=== PATIENT | female | born 1940 | race Caucasian/White ===

== ENCOUNTER 2022-05-05 14:32 | Outpatient (CLI) | payer MEDICARE, SELFPAY ==
--- NOTE | 2022-05-05 14:40 | RAD_ITS ---
STUDY: X-RAY - RIGHT TIBIA AND FIBULA REASON FOR EXAM: Female, 81 years old. ULCER TECHNIQUE: 4 view(s) of the tibia and fibula were obtained. COMPARISON: None. FINDINGS: Normal visualized tibia. Normal visualized fibula. Calcaneal spurs. 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 Diffuse soft tissue swelling. Laceration is seen overlying the anterior soft tissues overlying the distal one third of the tibia. RAD/Tibia & Fibula 2 Views IMPRESSION: Soft tissue swelling and ulceration overlying the anterior aspect of the distal one third of the tibia. Electronically Signed: Jose Madrigal MD at 15:40 EDT ,
== END 2022-05-05 23:59 | disposition home or self-care (01) ==
PROVIDERS: PCP Physician Assistant Medical; Referring Provider Podiatrist; Visit Provider Podiatrist
DX: L97.512 Non-pressure chronic ulcer of other part of right foot with fat layer exposed (principal); L97.522 Non-pressure chronic ulcer of other part of left foot with fat layer exposed; S89.91XA Unspecified injury of right lower leg, initial encounter; M79.674 Pain in right toe(s); M79.675 Pain in left toe(s); M79.604 Pain in right leg; L03.115 Cellulitis of right lower limb; B35.1 Tinea unguium; L60.0 Ingrowing nail; S81.811A Laceration without foreign body, right lower leg, initial encounter; R60.0 Localized edema; Z79.01 Long term (current) use of anticoagulants; Z79.890 Hormone replacement therapy; Z79.899 Other long term (current) drug therapy
CPT/HCPCS: 11042; 73590; 99213; G0463

== ENCOUNTER 2022-05-19 13:00 | Outpatient (RCR) | payer MEDICARE, SELFPAY ==
[2022-05-05 13:10] VITALS: BP 156/68; PULSE 69; RESP 18; TEMP 36.4; BMI 34.0
--- NOTE | 2022-05-05 19:42 | PCM.CONS.GEN ---
Assessment & Plan Assessment/Plan (1) Chronic ulcer of right leg with fat layer exposed: (2) Right leg pain: (3) Localized edema: (4) Cellulitis of right lower limb: (5) Laceration of right lower leg: PLAN: Plan I reviewed and discussed her case today. Debridement was performed today as noted in the clinical panel to all of the ulcer site. Procedure- Location: right leg Excisional debridement performed (predebridement measurement 2.1 x 8.2 x 0.1 cm and post debridement measurement 2.2 x 8.3 x 0.1 cm) Anesthesia: 5% lidocaine plain Debridement layer: subcutaneous Amount of debridement: 100% Instrumentation used: 15 blade Tissue debrided: fibrous, devitalized subcutaneous, biofilm, slough Exposed tissue: fat layer Bleeding: mild Hemostasis controlled: pressure The patient tolerated the procedure well The following work up and care recommendations were made: Dressing: Daily Aquacel Ag Wash: Antibacterial soap and water. To avoid soaking Tissue growth optimization: Advanced application will be considered after improving granular base Offload: To reduce pressure and ulcer by application of compression garment Vascular: Noninvasive lower extremity arterial studies with ordered to confirm adequate perfusion. Edema: Single-layer Tubigrip applied. Additional compression will be recommended pending treatment response. Elevate limbs at rest. Venous Doppler with reflux evaluation was ordered to assess for venous insufficiency Infection: It is noted she was previously treated for cellulitis in her leg and she completed several course of antibiotics. To monitor for development of local or systemic illness. I do not recommend additional antibiotics at this time. Diagnostic data: Ordered x-ray of limb (right lower extremity). Tibia-fibula x-ray right lower extremity was reviewed with soft tissue discontinuity noted to anterior mid lower leg without soft tissue emphysema and deeper compartments, fracture, dislocation, periosteal reaction to adjacent tibia. 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 Pain: This is controlled at this time Host factors: Her comorbidities are noted. I also recommend nutritional supplementation optimize healing, Radu. The medical decision making level is low. There is noted low risk of morbidity after considering this treatment plan and diagnostic data. The problems addressed require a low medical decision making level which includes two or more minor problems, a stable chronic illness, or an acute uncomplicated illness or injury. Note: [employer] speech recognition sawmill supervisor software was used to create portions of this document. Sound-alike and misspelled words, as well as other sawmill supervisor errors may be contained in the documentation. I answered all the patient's questions. To return to the wound healing center in 1 week or call sooner if the patient has any questions or concerns. HPI Consult Data Date of Consult: 05/05/22 HPI Narrative Reason for Consultation: Right leg ulcer HPI Narrative: RACHEL DUONG, is a 81 F who presents to the wound healing center today for ulcer right leg with an onset of 5 weeks ago. A corn shaker fell on her leg and caused a laceration which was repaired in the outpatient setting. She was treated for antibiotics and started on Silvadene dressing. She completed a course of Bactrim already. She denies odor or other illness. She reports she has also had chronic lower extremity edema with some pigment changes. She denies claudication. She denies burning tingling or numbness. She denies current smoking or diabetes status. She is with her family member bedside. She denies current fever, chill, nausea, vomiting. [facility] Home Medications acetaminophen 325 mg capsule (Tylenol) mg PO Q4H PRN Pain 05/05/22 [History Last Taken Unknown] alprazolam 0.25 mg tablet (Xanax) 0.5 mg PO QHS PRN Anxiety 05/05/22 [History Last Taken Unknown] amitriptyline 25 mg tablet 25 mg PO QHS 05/05/22 [History Last Taken Unknown] cholecalciferol (vitamin D3) 125 mcg (5,000 unit) tablet (Vitamin D3) 125 mcg PO QWEEK 05/05/22 [History Last Taken Unknown] furosemide 20 mg tablet (Lasix) 20 mg PO BID 05/05/22 [History Last Taken Unknown] gabapentin 300 mg capsule 300 mg PO TID 05/05/22 [History Last Taken Unknown] levothyroxine 75 mcg tablet 75 mcg PO MOTUWETHFRSA 05/05/22 [History Last Taken Unknown] multivitamin 1 tab PO DAILY 05/05/22 [History Last Taken Unknown] omeprazole 40 mg capsule,delayed release 40 mg PO DAILY 05/05/22 [History Last Taken Unknown] potassium chloride 10 mEq tablet,extended release(part/cryst) 10 meq PO 4X/DAY 05/05/22 [History Last Taken Unknown] propafenone 225 mg tablet 225 mg PO Q8H 05/05/22 [History Last Taken Unknown] propafenone 225 mg tablet 225 mg PO Q8H 05/05/22 [History Last Taken Unknown] triamterene 37.5 mg-hydrochlorothiazide 25 mg capsule 1 cap PO DAILY 05/05/22 [History Last Taken Unknown] warfarin 5 mg tablet 5 mg PO DAILY 05/05/22 [History Last Taken Unknown] Allergy/AdvReac Type Severity Reaction Status Date / Time tramadol [From Ultram] AdvReac Other Verified 05/05/22 13:31 STATINS AdvReac Other Uncoded 05/05/22 13:31 Social History Smoking Status: Never smoker Physical Exam Const alert and oriented x3 General Appearance: cooperative HEENT normocephalic Extremity Extremity Narrative: No calf tenderness Diminished pulses Muscle wasting noted General Extremity: edema and no tenderness to palpation of joints or extremities; Negative for cyanosis Skin Skin Narrative: no purulence, no streaking, no odor, no infection. skin discontinuity to right leg with fibrous, granular base and some probing to deeper structures without probe to bone. tender to touch. no bogginess or fluctuance. peripheral hyperpigmentation noted General Skin Exam: Negative for erythema Neuro Neuro Narrative: lack of normal epicritic sensation via light touch is consistent with neuropathy status Psych cooperative and affect normal
[2022-05-12 14:46] VITALS: BP 166/83; PULSE 77; RESP 16; TEMP 36.8; BMI 34.0
--- NOTE | 2022-05-12 16:06 | PCM.WC.PN ---
History of Present Illness Date of Service: 05/12/22 Chief Complaint: Right leg History of Wound: This 81-year-old female follows up for right leg ulcer that occurred early March 2022 after a corn shaker fell on her leg. She is performing dressing changes as advised. She denies fever, chill, nausea, vomiting. She did not schedule her follow-up appointment with vascular. She reports continued moderate drainage. Progress of Wound: Improving quality Objective Data Objective Data Vital Signs: Vital Signs Temp Pulse Resp BP O2 Del Method 98.2 F 77 16 166/83 H Room Air 05/12/22 14:46 05/12/22 14:46 05/12/22 14:46 05/12/22 14:46 05/12/22 14:46 Oxygen Delivery Method Room Air Weight: 81.647 kg Body Mass Index (BMI) 34.0 Physical Exam Const alert and oriented x3 General Appearance: cooperative HEENT normocephalic Extremity Extremity Narrative: No calf tenderness Diminished pulses Muscle wasting noted General Extremity: edema and no tenderness to palpation of joints or extremities; Negative for cyanosis Skin Skin Narrative: no purulence, no streaking, no odor, no infection. skin discontinuity to right leg with fibrous, granular base and some probing to deeper structures without probe to bone. tender to touch. no bogginess or fluctuance. peripheral hyperpigmentation noted General Skin Exam: Negative for erythema Neuro Neuro Narrative: Light touch intact Psych cooperative and affect normal Debridement Note Debridement Note Wound debrided: Leg Laterality: Right Wound Grade/Stage: Type of Debridement: Excisional debridement Anesthesia Used: 4% Lidocaine Solution Depth: in the subcutaneous layer Percentage of wound debrided: 100 Instrument Used: #15 blade and Forceps Tissue Removed: fibrous, devitalized subcutaneous, biofilm, slough Severity: Fat Layer Exposed Amount of bleeding with debridement: Mild Bleeding Controlled with: Pressure Patient tolerated procedure: Patient tolerated procedure well Post-Debridement Measurements and Additional Note: Post-Debridement Measurements/Treatment - Nurse 1 - General Ulcer Assessment Start: 05/05/22 13:10 Freq: Status: Active Protocol: ANGY Activity Type Activity Date Activity User E-sign Co-sign Detail Recorded Client Recorded Date Recorded By Document 05/05/22 13:10 [facility] [id number] 05/05/22 13:26 BM Document 05/12/22 14:46 [facility] [id number] 05/12/22 14:56 [facility] 05/05/22 05/12/22 13:10 14:46 WC - Today's Visit Information Type of service Initial Visit Follow-up Visit (Physician/SHIFT PRODUCTION ASSOCIATE ) Arrival Mode Ambulatory Ambulatory Transfer Assistance Stretcher None Accompanied by son in law Patient Identification Verified (Name & Yes Yes ) Patient Requires Transmission-Based No No Precautions Height and Weight Height 5 ft 1 in Weight 81.647 kg Weight in Pounds 180.0 lbs Weight Measurement Method Stated by Patient Body Mass Index (BMI) 34.0 34.0 BMI Classification Obese Obese BSA - Alannah 1.81 Vital Signs Temperature (97.8 F-99.1 F) 97.5 F L 98.2 F Temperature Source Temporal Temporal Pulse Rate (60-100) 69 77 Pulse Location Monitor Monitor Respiratory Rate (12-18) 18 16 Respiratory rate source Observation Observation Oxygen Delivery Method Room Air Room Air Blood Pressure (90/60-120/80) 156/68 H 166/83 H Blood Pressure Mean (mm Hg) 97 110 Source Monitor Monitor Position Sitting Sitting Blood Pressure Location Right Arm Left Arm History Since Last Visit- (Skip if this is Patient's initial visit) Have you changed medications since your No last visit? Any new allergies or adverse reactions No Had a fall/change in ADL's that may No increase risk of falls Signs or symptoms of abuse and/or No neglect since last visit Have you been in the hospital since your No last visit? Has dressing in place as prescribed Yes Has compression in place as prescribed No Has offloadiing in place as prescribed N/A Experienced any changes in pain level or No management Left Footwear Regular Shoe Regular Shoe Right Footwear Regular Shoe Regular Shoe Pain Scale: 0-10 Numeric Is Patient Pain Free? Yes Yes Lower Extremity Assessment/ Foot Assessment/ Toe Nail Assessment Right -Posterior Tibial Palpable No -Posterior Tibial Doppler Monophasic -Dorsalis Pedis Palpable Yes -Dorsalis Pedis Doppler Monophasic -Extremity Color Hyperpigmented -Hair Growth on Legs No -Hair Growth on Toes No -Temperature of Extremity Warm -Other Deformity No -Prior Foot Ulcer No -Charcot Joint No -Prior Amputation No -Thick Yes -Discolored Yes -Deformed No -Improper Length & Hygeine No Left -Posterior Tibial Palpable No -Posterior Tibial Doppler Monophasic -Dorsalis Pedis Palpable Yes -Dorsalis Pedis Doppler Multiphasic -Extremity Color Hemosiderin -Hair Growth on Legs No -Hair Growth on Toes No -Temperature of Extremity Warm -Other Deformity No: no nail 2nd toe -Prior Foot Ulcer No -Charcot Joint No -Prior Amputation No -Thick Yes -Discolored Yes -Deformed No -Improper Length & Hygeine No Neuropathy Assessment Feet - Top Side and Bottom <Entered> (a) Communication Assessment Preferred language Sinhala Resource Teacher Required No Able to Read Yes Able to Write Yes Communication Tools None Right Hearing Abillity Hard of Hearing ,Use of Hearing Aid Left Hearing Abillity Normal,Use of Hearing Aid Visual Assistive Devices Glasses Teaching Assessment Preferences Verbal,Written, Audio/Visual, Demonstration Barriers to Learning None Readiness To Learn Excellent Willingness to Engage in Self Management High Activies Readiness to Engage in Self Management High Activities Anxiety Level Calm Cooperation Cooperative Perception Coherent Interest in Health Problem Asks Questions Education Importance Acknowledges Need Does Patient Smoke tobacco or other No substances Smoking Status Never smoker Is Patient Diabetic Yes Functional Assessment Recent Decline in Ability to Perform Denies Any Declines Culture/Sabianism/Sales Enablement Consultant Cultural/Sabianism Needs that may affect No Treatment Plan Teaching: Wound Center *Welcome to the Wound Center -Person Taught Patient,Family -Teaching Method Discussion -Response to teaching Verbalize understanding Welcome to the Wound Care Center Sinhala (a) 1 - + WC - Nurse 1 - General Ulcer Measurement Start: 05/05/22 13:10 Freq: Status: Active Protocol: Activity Type Activity Date Activity User E-sign Co-sign Detail Recorded Client Recorded Date Recorded By Document 05/05/22 13:10 [facility] [id number] 05/05/22 13:26 [facility] Document 05/12/22 14:46 [facility] [id number] 05/12/22 14:56 [facility] 05/05/22 05/12/22 13:10 14:46 Wound Center Nurse 1 #2 R LE -Combined with other wound No No -Current Size (cm) - Length 2.1 2 -Current Size (cm) - Width 8.2 6.9 -Current Size (cm) - Depth 0.2 0.2 -Total Square Cm 17.22 13.8 -Date of Last Picture (Recall this 05/05/22 05/12/22 field) -Photo Taken Yes Yes -Epithelialization None Present Small 1-33% -Tunneling No No -Undermining/Tunneling No No -Circular Undermining No No -Exudate Amt Medium Large -Exudate Type Yellow/Green Serosanguineous -Wound Margin Distinct, Distinct, Outline Outline Attached Attached -Granulation Amt Small (1-33%) Small (1-33%) -Granulation Quality Red Red -Slough/Fibrin Yes Yes -Necrosis Amt Large (67-100%) Large (67-100%) -Necrotic Tissue Type Adherent Slough Adherent Slough -Texture (Alethea-wound Skin Appearance) Assessed, Assessed, Scarring Scarring -Moisture (Alethea-wound Skin Appearance) Assessed Assessed -Color (Alethea-wound Skin Appearance) Assessed, Assessed, Erythema, Hemosiderin Hemosiderin Staining Staining -Temperature (Alethea-wound Skin No Abnormality No Abnormality Appearance) (Pt Warm) (Pt Warm) -Tenderness on Palpation (Alethea-wound No No Skin Appearance) -Ulcer Cleansing Soap and Water Rinsed/ Irrigated with Saline -Foul Odor after Cleansing No No -Anesthetic Used 4% Lidocaine 4% Lidocaine Solution Solution Lower Limb Edema Present Yes Yes Right Calf (cm) 43.4 43.5 Right Ankle (cm) 27 23.8 Left Calf (cm) 42 Left Ankle (cm) 25.6 WC - Nurse 2 - General Ulcer CM Notes Start: 05/05/22 13:10 Freq: Status: Active Protocol: Activity Type Activity Date Activity User E-sign Co-sign Detail Recorded Client Recorded Date Recorded By Document 05/05/22 13:49 [id number] 05/05/22 13:57 NAWAF 05/05/22 13:49 Wound Center Nurse 2 #2 R LE -Time 13:55 -Correct Patient Yes -Correct Side, Site, Position Yes -Correct Procedure Yes -Procedure Performed Yes -Type of Procedure Debridement -Clinical Debridement Subcutaneous -Tissue Removed Subcutaneous -Post Debridement (cm) - Length 2.2 -Post Debridement (cm) - Width 8.3 -Post Debridement (cm) - Depth 0.2 -Total Square (Post) (cm) 18.26 -Area of Debridement (cm) - Length 2.2 -Area of Debridement (cm) - Width 8.3 -Total Square (Area) (cm) 18.26 -Tunneling No -Undermining/Tunneling No -Circular Undermining No -Wound/Ulcer Outcome Not Healed -Ulcer Cleansing Rinsed/ Irrigated with Saline -Foul Odor after Cleansing No -Bioengineered Tissue No -Bleeding Controlled with Pressure -Treatment Response Procedure Tolerated Well -Offloading No -Debridement - Subq, 1st 20sq cm Yes Pain Scale: 0-10 Numeric Is Patient Pain Free? Yes WC - Nurse 3 - General Ulcer D/C NN Start: 05/05/22 13:10 Freq: Status: Active Protocol: Activity Type Activity Date Activity User E-sign Co-sign Detail Recorded Client Recorded Date Recorded By Document 05/05/22 14:18 [facility] [id number] 05/05/22 14:19 [facility] Document 05/12/22 15:55 RB [id number] 05/12/22 15:56 RB 05/05/22 05/12/22 14:18 15:55 Wound Care Nurse 3 #2 R LE -Ulcer Cleansing Rinsed/ Wound Cleanser Irrigated with Saline -Foul Odor after Cleansing No -Negative Pressure Wound Therapy N/A -Primary Dressing Applied Aquacel AG 4x4 Nugauze, Iodoform -Primary Dressing Covered/Secured with Dry Gauze & Dry Gauze,Dry Roll Gauze, Gauze & Roll Secured with Gauze,Secured Tape with Tape -Aquacel AG 4x4 1 -Nugauze, Iodoform 1/4 1 Right -Tubular Bandage Single Layer Double Layer -Size of Tubigrip Used Size F Size E -Size E ($) 2 -Size F ($) 1 Treatment Response Procedure Tolerated Well Pain Scale: 0-10 Numeric Is Patient Pain Free? Yes Yes Teaching: Wound Center Dressing Your Wound -Person Taught Patient -Teaching Method Discussion, Demonstration -Response to teaching Verbalize understanding WC - Visit Discharge Discharge Condition Stable Stable Ambulatory Status Ambulatory Ambulatory Transportation Private Auto Private Auto Medication Reconcilliation completed & Yes No provided to patient/care provider Clinical Summary of Care Provided Yes Yes Assessment/Plan Assessment/Plan (1) Laceration of right lower leg: CODE(S): S81.811A - Laceration without foreign body, right lower leg, initial encounter (2) Cellulitis of right lower limb: CODE(S): L03.115 - Cellulitis of right lower limb (3) Localized edema: CODE(S): R60.0 - Localized edema (4) Right leg pain: CODE(S): M79.604 - Pain in right leg (5) Chronic ulcer of right leg with fat layer exposed: CODE(S): L97.912 - Non-pressure chronic ulcer of unspecified part of right lower leg with fat layer exposed PLAN: Plan I reviewed and discussed her case today.? Debridement was performed today as noted in the clinical panel to all of the ulcer site. Dressing: Iodoform gauze packing with overlying gauze Wash: Antibacterial soap and water.? To avoid soaking Tissue growth optimization: Advanced application will be considered after improving granular base Offload: To reduce pressure and ulcer by application of compression garment Vascular: Noninvasive lower extremity arterial studies with ordered to confirm adequate perfusion. She was encouraged to get this scheduled. Edema: Double layer Tubigrip applied.?? Elevate limbs at rest.? Venous Doppler with reflux evaluation was ordered to assess for venous insufficiency Infection: It is noted she was previously treated for cellulitis in her leg and she completed several course of antibiotics.? To monitor for development of local or systemic illness. I do not recommend additional antibiotics at this time. Diagnostic data: Ordered x-ray of limb (right lower extremity).? Tibia-fibula x-ray right lower extremity was reviewed with soft tissue discontinuity noted to anterior mid lower leg without soft tissue emphysema and deeper compartments, fracture, dislocation, periosteal reaction to adjacent tibia.? 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 Pain: This is controlled at this time Host factors: Her comorbidities are noted.? I also recommend nutritional supplementation optimize healing, Radu. Note: code[employer] speech recognition entry level web developer software was used to create portions of this document. Sound-alike and misspelled words, as well as other entry level web developer errors may be contained in the documentation. I answered all the patient's questions.? To return to the wound healing center in 1 week or call sooner if the patient has any questions or concerns.
[2022-05-19 13:11] VITALS: BP 155/79; PULSE 72; RESP 16; TEMP 36.1; BMI 34.0
--- NOTE | 2022-05-19 13:37 | PN.PCM_ITS ---
History of Present Illness Date of Service: 05/19/22 Chief Complaint: Right leg History of Wound: This 81-year-old female follows up for right leg ulcer that occurred early March 2022 after a corn shaker fell on her leg. She is performing dressing changes as advised. She denies fever, chill, nausea, vomiting. She did not schedule her follow-up appointment with vascular. She reports continued moderate drainage and some intermittent pain with the deeper packing dressing changes. She also reports she keeps stubbing her toes and has an opening on her right second toe. She also has for help safely trimming her toenails which she is unable to perform on her own. She stopped her ingrown right great toe nail and this is painful rated as a 4 out of 10. She is not able to safely perform this on her own. Progress of Wound: Improving quality right leg New right second toe and left hallux Objective Data Objective Data Vital Signs: Vital Signs Temp Pulse Resp BP O2 Del Method 96.9 F L 72 16 155/79 H Room Air 05/19/22 13:11 05/19/22 13:11 05/19/22 13:11 05/19/22 13:11 05/12/22 14:46 Oxygen Delivery Method Room Air Weight: 81.647 kg Body Mass Index (BMI) 34.0 Physical Exam Const alert and oriented x3 General Appearance: cooperative HEENT normocephalic Extremity Extremity Narrative: No calf tenderness Diminished pulses Muscle wasting noted General Extremity: edema and no tenderness to palpation of joints or extremities; Negative for cyanosis Skin Skin Narrative: no purulence, no streaking, no odor, no infection. skin discontinuity to right leg with fibrous, granular base and some probing to deeper structures without probe to bone. tender to touch. no bogginess or fluctuance. peripheral hyperpigmentation noted. Skin discontinuity superficial with granular base to the dorsal right second toe and also to the distal plantar toe pulp of the left hallux Toenails long thick dystrophic with subungual debris and incurvated to the medial lateral borders on bilateral 1, 3, 4 and left 2 and 5. Absent toenail to right 2 and 5. Pain relief on palpation noted postdebridement General Skin Exam: Negative for erythema Neuro Neuro Narrative: Light touch intact Psych cooperative and affect normal Debridement Note Debridement Note Wound debrided: R.Leg, R. 2nd toe, L. hallux Laterality: Left Wound Grade/Stage: Type of Debridement: Excisional debridement Anesthesia Used: 4% Lidocaine Solution Depth: in the subcutaneous layer Percentage of wound debrided: 100 Instrument Used: #15 blade and Forceps Tissue Removed: fibrous, devitalized subcutaneous, biofilm, slough Severity: Fat Layer Exposed Amount of bleeding with debridement: Mild Bleeding Controlled with: Pressure Patient tolerated procedure: Patient tolerated procedure well Post-Debridement Measurements and Additional Note: Post-Debridement Measurements/Treatment - Nurse 1 - General Ulcer Assessment Start: 05/05/22 13:10 Freq: Status: Active Protocol: ANGY Activity Type Activity Date Activity User E-sign Co-sign Detail Recorded Client Recorded Date Recorded By Document 05/05/22 13:10 [facility] [id number] 05/05/22 13:26 [facility] Document 05/12/22 14:46 [facility] [id number] 05/12/22 14:56 [facility] Document 05/19/22 13:11 [id number] 05/19/22 13:17 05/05/22 05/12/22 05/19/22 13:10 14:46 13:11 - Today's Visit Information Type of service Initial Visit Follow-up Visit Follow-up Visit (Physician/DIRECTOR OF PATIENT FINANCIAL SERVICES (Physician/DIRECTOR OF PATIENT FINANCIAL SERVICES ) ) Arrival Mode Ambulatory Ambulatory Ambulatory Transfer Assistance Stretcher None Accompanied by son in law Patient Identification Verified (Name & Yes Yes No ) Patient Requires Transmission-Based No No No Precautions Height and Weight Height 5 ft 1 in Weight 81.647 kg Weight in Pounds 180.0 lbs Weight Measurement Method Stated by Patient Body Mass Index (BMI) 34.0 34.0 34.0 BMI Classification Obese Obese Obese BSA - Alannah 1.81 Vital Signs Temperature (97.8 F-99.1 F) 97.5 F L 98.2 F 96.9 F L Temperature Source Temporal Temporal Temporal Pulse Rate (60-100) 69 77 72 Pulse Location Monitor Monitor Monitor Respiratory Rate (12-18) 18 16 16 Respiratory rate source Observation Observation Observation Oxygen Delivery Method Room Air Room Air Blood Pressure (90/60-120/80) 156/68 H 166/83 H 155/79 H Blood Pressure Mean (mm Hg) 97 110 104 Source Monitor Monitor Monitor Position Sitting Sitting Semi-Fowlers Blood Pressure Location Right Arm Left Arm Left Arm History Since Last Visit- (Skip if this is Patient's initial visit) Have you changed medications since your No No last visit? Any new allergies or adverse reactions No No Had a fall/change in ADL's that may No No increase risk of falls Signs or symptoms of abuse and/or No No neglect since last visit Have you been in the hospital since your No No last visit? Has dressing in place as prescribed Yes Yes Has compression in place as prescribed No Yes Has offloadiing in place as prescribed N/A N/A Experienced any changes in pain level or No No management Left Footwear Regular Shoe Regular Shoe Regular Shoe Right Footwear Regular Shoe Regular Shoe Regular Shoe Pain Scale: 0-10 Numeric Is Patient Pain Free? Yes Yes Yes Lower Extremity Assessment/ Foot Assessment/ Toe Nail Assessment Right -Posterior Tibial Palpable No -Posterior Tibial Doppler Monophasic -Dorsalis Pedis Palpable Yes -Dorsalis Pedis Doppler Monophasic -Extremity Color Hyperpigmented -Hair Growth on Legs No -Hair Growth on Toes No -Temperature of Extremity Warm -Other Deformity No -Prior Foot Ulcer No -Charcot Joint No -Prior Amputation No -Thick Yes -Discolored Yes -Deformed No -Improper Length & Hygeine No Left -Posterior Tibial Palpable No -Posterior Tibial Doppler Monophasic -Dorsalis Pedis Palpable Yes -Dorsalis Pedis Doppler Multiphasic -Extremity Color Hemosiderin -Hair Growth on Legs No -Hair Growth on Toes No -Temperature of Extremity Warm -Other Deformity No: no nail 2nd toe -Prior Foot Ulcer No -Charcot Joint No -Prior Amputation No -Thick Yes -Discolored Yes -Deformed No -Improper Length & Hygeine No Neuropathy Assessment Feet - Top Side and Bottom <Entered> (a) Communication Assessment Preferred language Faroese Certified Medical Aide Required No Able to Read Yes Able to Write Yes Communication Tools None Right Hearing Abillity Hard of Hearing ,Use of Hearing Aid Left Hearing Abillity Normal,Use of Hearing Aid Visual Assistive Devices Glasses Teaching Assessment Preferences Verbal,Written, Audio/Visual, Demonstration Barriers to Learning None Readiness To Learn Excellent Willingness to Engage in Self Management High Activies Readiness to Engage in Self Management High Activities Anxiety Level Calm Cooperation Cooperative Perception Coherent Interest in Health Problem Asks Questions Education Importance Acknowledges Need Does Patient Smoke tobacco or other No substances Smoking Status Never smoker Is Patient Diabetic Yes Functional Assessment Recent Decline in Ability to Perform Denies Any Declines Culture/Gnosticism/Inspector Packager Cultural/Gnosticism Needs that may affect No Treatment Plan Teaching: Wound Center *Welcome to the Wound Center -Person Taught Patient,Family -Teaching Method Discussion -Response to teaching Verbalize understanding Welcome to the Wound Care Center Faroese (a) 1 - + WC - Nurse 1 - General Ulcer Measurement Start: 05/05/22 13:10 Freq: Status: Active Protocol: Activity Type Activity Date Activity User E-sign Co-sign Detail Recorded Client Recorded Date Recorded By Document 05/05/22 13:10 [facility] [id number] 05/05/22 13:26 [facility] Document 05/12/22 14:46 [facility] [id number] 05/12/22 14:56 [facility] Document 05/19/22 13:11 [id number] 05/19/22 13:17 05/05/22 05/12/22 05/19/22 13:10 14:46 13:11 Wound Center Nurse 1 #2 R LE -Combined with other wound No No No -Current Size (cm) - Length 2.1 2 2.0 -Current Size (cm) - Width 8.2 6.9 4.2 -Current Size (cm) - Depth 0.2 0.2 0.7 -Total Square Cm 17.22 13.8 8.40 -Date of Last Picture (Recall this 05/05/22 05/12/22 field) -Photo Taken Yes Yes Yes -Epithelialization None Present Small 1-33% Small 1-33% -Tunneling No No No -Undermining/Tunneling No No No -Circular Undermining No No No -Exudate Amt Medium Large -Exudate Type Yellow/Green Serosanguineous -Wound Margin Distinct, Distinct, Flat & Intact Outline Outline Attached Attached -Granulation Amt Small (1-33%) Small (1-33%) Medium (34-66%) -Granulation Quality Red Red Red -Slough/Fibrin Yes Yes Yes -Necrosis Amt Large (67-100%) Large (67-100%) Small (1-33%) -Necrotic Tissue Type Adherent Slough Adherent Slough Adherent Slough -Structure Exposed N/A -Texture (Alethea-wound Skin Appearance) Assessed, Assessed, Assessed, Scarring Scarring Localized Edema -Moisture (Alethea-wound Skin Appearance) Assessed Assessed Assessed,Dry/ Scaly -Color (Alethea-wound Skin Appearance) Assessed, Assessed, Assessed Erythema, Hemosiderin Hemosiderin Staining Staining -Temperature (Alethea-wound Skin No Abnormality No Abnormality No Abnormality Appearance) (Pt Warm) (Pt Warm) (Pt Warm) -Tenderness on Palpation (Alethea-wound No No No Skin Appearance) -Ulcer Cleansing Soap and Water Rinsed/ Rinsed/ Irrigated with Irrigated with Saline Saline -Foul Odor after Cleansing No No No -Anesthetic Used 4% Lidocaine 4% Lidocaine 5% Lidocaine Solution Solution Gel Lower Limb Edema Present Yes Yes Yes Right Calf (cm) 43.4 43.5 43 Right Ankle (cm) 27 23.8 25.2 Left Calf (cm) 42 Left Ankle (cm) 25.6 WC - Nurse 2 - General Ulcer CM Notes Start: 05/05/22 13:10 Freq: Status: Active Protocol: Activity Type Activity Date Activity User E-sign Co-sign Detail Recorded Client Recorded Date Recorded By Document 05/05/22 13:49 [id number] 05/05/22 13:57 Document 05/12/22 16:08 PL [id number] 05/12/22 16:08 PL Document 05/19/22 13:26 [id number] 05/19/22 13:33 05/05/22 05/12/22 05/19/22 13:49 16:08 13:26 Wound Center Nurse 2 3-left hallux -Time 13:32 -Correct Patient Yes -Correct Side, Site, Position Yes -Correct Procedure Yes -Procedure Performed Yes -Type of Procedure Debridement -Clinical Debridement Subcutaneous -Tissue Removed Subcutaneous -Post Debridement (cm) - Length 0.4 -Post Debridement (cm) - Width 0.3 -Post Debridement (cm) - Depth 0.1 -Total Square (Post) (cm) 0.12 -Area of Debridement (cm) - Length 0.4 -Area of Debridement (cm) - Width 0.3 -Total Square (Area) (cm) 0.12 -Tunneling No -Undermining/Tunneling No -Circular Undermining No -Ulcer Cleansing Rinsed/ Irrigated with Saline -Foul Odor after Cleansing No -Bioengineered Tissue No -Bleeding Controlled with Pressure -Treatment Response Procedure Tolerated Well -Offloading No -Debridement - Subq, 1st 20sq cm No 2-right 2nd toe -Time 13:27 -Correct Patient Yes -Correct Side, Site, Position Yes -Correct Procedure Yes -Procedure Performed Yes -Type of Procedure Debridement -Clinical Debridement Subcutaneous -Tissue Removed Subcutaneous -Post Debridement (cm) - Length 0.4 -Post Debridement (cm) - Width 0.3 -Post Debridement (cm) - Depth 0.1 -Total Square (Post) (cm) 0.12 -Area of Debridement (cm) - Length 0.4 -Area of Debridement (cm) - Width 0.3 -Total Square (Area) (cm) 0.12 -Tunneling No -Undermining/Tunneling No -Circular Undermining No -Wound/Ulcer Outcome Not Healed -Ulcer Cleansing Rinsed/ Irrigated with Saline -Foul Odor after Cleansing No -Bioengineered Tissue No -Bleeding Controlled with Pressure -Treatment Response Procedure Tolerated Well -Offloading No -Debridement - Subq, 20sq cm No #2 R LE -Time 13:55 15:15 13:26 -Correct Patient Yes Yes Yes -Correct Side, Site, Position Yes Yes Yes -Correct Procedure Yes Yes Yes -Procedure Performed Yes Yes Yes -Type of Procedure Debridement Debridement Debridement -Clinical Debridement Subcutaneous Subcutaneous Subcutaneous -Tissue Removed Subcutaneous Subcutaneous Subcutaneous -Post Debridement (cm) - Length 2.2 2.0 2 -Post Debridement (cm) - Width 8.3 6.9 4.3 -Post Debridement (cm) - Depth 0.2 0.2 0.7 -Total Square (Post) (cm) 18.26 13.80 8.6 -Area of Debridement (cm) - Length 2.2 2.0 2 -Area of Debridement (cm) - Width 8.3 6.9 4.3 -Total Square (Area) (cm) 18.26 13.80 8.6 -Tunneling No No No -Undermining/Tunneling No No No -Circular Undermining No No No -Wound/Ulcer Outcome Not Healed Not Healed Not Healed -Ulcer Cleansing Rinsed/ Rinsed/ Rinsed/ Irrigated with Irrigated with Irrigated with Saline Saline Saline -Foul Odor after Cleansing No No No -Bioengineered Tissue No No No -Bleeding Controlled with Pressure Pressure Pressure -Treatment Response Procedure Procedure Procedure Tolerated Well Tolerated Well Tolerated Well -Offloading No No -Debridement - Subq, 20sq cm Yes Yes Yes Pain Scale: 0-10 Numeric Is Patient Pain Free? Yes Yes Yes WC - Nurse 3 - General Ulcer D/C NN Start: 05/05/22 13:10 Freq: Status: Active Protocol: Activity Type Activity Date Activity User E-sign Co-sign Detail Recorded Client Recorded Date Recorded By Document 05/05/22 14:18 [facility] [id number] 05/05/22 14:19 [facility] Document 05/12/22 15:55 RB [id number] 05/12/22 15:56 RB 05/05/22 05/12/22 14:18 15:55 Wound Care Nurse 3 #2 R LE -Ulcer Cleansing Rinsed/ Wound Cleanser Irrigated with Saline -Foul Odor after Cleansing No -Negative Pressure Wound Therapy N/A -Primary Dressing Applied Aquacel AG 4x4 Nugauze, Iodoform -Primary Dressing Covered/Secured with Dry Gauze & Dry Gauze,Dry Roll Gauze, Gauze & Roll Secured with Gauze,Secured Tape with Tape -Aquacel AG 4x4 1 -Nugauze, Iodoform 1/4 1 Right -Tubular Bandage Single Layer Double Layer -Size of Tubigrip Used Size F Size E -Size E ($) 2 -Size F ($) 1 Treatment Response Procedure Tolerated Well Pain Scale: 0-10 Numeric Is Patient Pain Free? Yes Yes Teaching: Wound Center Dressing Your Wound -Person Taught Patient -Teaching Method Discussion, Demonstration -Response to teaching Verbalize understanding WC - Visit Discharge Discharge Condition Stable Stable Ambulatory Status Ambulatory Ambulatory Transportation Private Auto Private Auto Medication Reconcilliation completed & Yes No provided to patient/care provider Clinical Summary of Care Provided Yes Yes Assessment/Plan Assessment/Plan (1) Chronic ulcer of right foot with fat layer exposed: CODE(S): L97.512 - Non-pressure chronic ulcer of other part of right foot with fat layer exposed (2) Localized edema: CODE(S): R60.0 - Localized edema (3) Right leg pain: CODE(S): M79.604 - Pain in right leg (4) Chronic ulcer of right leg with fat layer exposed: CODE(S): L97.912 - Non-pressure chronic ulcer of unspecified part of right lower leg with fat layer exposed (5) Tinea unguium: CODE(S): B35.1 - Tinea unguium (6) Toe pain, right: CODE(S): M79.674 - Pain in right toe(s) (7) Cellulitis of right lower limb: CODE(S): L03.115 - Cellulitis of right lower limb PLAN: resolved (8) Toe pain, left: CODE(S): M79.675 - Pain in left toe(s) (9) Laceration of right lower leg: CODE(S): S81.811A - Laceration without foreign body, right lower leg, initial encounter (10) Chronic ulcer of left foot with fat layer exposed: CODE(S): L97.522 - Non-pressure chronic ulcer of other part of left foot with fat layer exposed PLAN: Plan I reviewed and discussed her case today.? Debridement was performed today as noted in the clinical panel to all of the ulcer site. Dressing: Iodoform gauze packing with overlying gauze right leg. To change bilateral toe ulcers daily with hydrogel and gauze. Wash: Antibacterial soap and water.? To avoid soaking Tissue growth optimization: Advanced application will be considered after improving granular base Offload: To reduce pressure and ulcer by application of compression garment Vascular: Noninvasive lower extremity arterial studies with ordered to confirm adequate perfusion. She was encouraged to get this scheduled sooner if aamir ilable; she is scheduled for June 19, 2022. Edema: Double layer Tubigrip applied.?? Elevate limbs at rest.? Venous Doppler with reflux evaluation was ordered to assess for venous insufficiency Infection: It is noted she was previously treated for cellulitis in her leg and she completed several course of antibiotics.? To monitor for development of local or systemic illness. I do not recommend additional antibiotics at this time. Diagnostic data: Ordered x-ray of limb (right lower extremity).? Tibia-fibula x- ray right lower extremity was reviewed with soft tissue discontinuity noted to anterior mid lower leg without soft tissue emphysema and deeper compartments, fracture, dislocation, periosteal reaction to adjacent tibia.? 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 Pain: This is controlled at this time Host factors: Her comorbidities are noted.? I also recommend nutritional supplementation optimize healing, Radu. The etiology of thickened and incurvated toenails was briefly reviewed including fungus or microtrauma. The nails were debrided with a nail nipper after verbal consent was obtained without incident. The nails were debrided in length and thickness to reduce pressure, potential fungal load, and to prevent wound formation. The patient tolerated this well. The patient elects proceed with palliative care only at this time with the nails and will hold off on further work-up. To follow-up with the foot and ankle Center if needed in the future for this condition. carisa 1,3,4 and left 2 and 5. Note: [employer] speech recognition coil winding supervisor software was used to create portions of this document. Sound-alike and misspelled words, as well as other coil winding supervisor errors may be contained in the documentation. I answered all the patient's questions.? To return to the wound healing center in 1 week or call sooner if the patient has any questions or concerns. The medical decision making level is low. There is noted low risk of morbidity after considering this treatment plan and diagnostic data. The problems addressed require a low medical decision making level which includes two or more minor problems, a stable chronic illness, or an acute uncomplicated illness or injury.
== END 2022-05-23 23:59 | disposition home or self-care (01) ==
LOC: WC 13:00
PROVIDERS: PCP Physician Assistant Medical; Visit Provider Podiatrist
DX: L97.512 Non-pressure chronic ulcer of other part of right foot with fat layer exposed (principal); L97.522 Non-pressure chronic ulcer of other part of left foot with fat layer exposed; M79.674 Pain in right toe(s); M79.675 Pain in left toe(s); M79.604 Pain in right leg; L03.115 Cellulitis of right lower limb; B35.1 Tinea unguium; L60.0 Ingrowing nail; S81.811A Laceration without foreign body, right lower leg, initial encounter; R60.0 Localized edema; Z79.01 Long term (current) use of anticoagulants; Z79.890 Hormone replacement therapy; Z79.899 Other long term (current) drug therapy
CPT/HCPCS: 11042; 99213; G0463

== ENCOUNTER 2022-06-23 14:00 | Outpatient (RCR) | payer MEDICARE, SELFPAY ==
[2022-05-24 00:39] VITALS: BP 155/79; PULSE 72; RESP 16; TEMP 36.1; BMI 34.0
[2022-05-26 13:57] VITALS: BP 168/86; PULSE 79; RESP 16; BMI 34.0
--- NOTE | 2022-05-26 15:42 | PCM.WC.PN ---
History of Present Illness Date of Service: 05/26/22 Chief Complaint: Right leg History of Wound: This 81-year-old female follows up for right leg ulcer that occurred early March 2022 after a corn shaker fell on her leg. She is performing dressing changes as advised. She denies fever, chill, nausea, vomiting. She did not schedule her follow-up appointment with vascular. She reports continued moderate drainage and some intermittent pain with the deeper packing dressing changes. She also reports she keeps stubbing her toes and has an opening on her right second toe. She did wound care last week as advised. Her leg is slightly less painful this week Progress of Wound: healed toes improved leg (base quality) Objective Data Objective Data Vital Signs: Vital Signs Temp Pulse Resp BP O2 Del Method 96.9 F L 79 16 168/86 H Room Air 05/24/22 00:39 05/26/22 13:57 05/26/22 13:57 05/26/22 13:57 05/26/22 13:57 Oxygen Delivery Method Room Air Weight: 81.647 kg Body Mass Index (BMI) 34.0 Physical Exam Const alert and oriented x3 General Appearance: cooperative Extremity Extremity Narrative: No calf tenderness Diminished pulses Muscle wasting noted General Extremity: edema and no tenderness to palpation of joints or extremities; Negative for cyanosis Skin Skin Narrative: no purulence, no streaking, no odor, no infection. skin discontinuity to right leg with scant fibrous and increased granular base and some probing to deeper structures without probe to bone (reduced depth). tender to touch. no bogginess or fluctuance. peripheral hyperpigmentation noted. Skin healed with full epithelialization noted to the dorsal right second toe and also to the distal plantar toe pulp of the left hallux General Skin Exam: Negative for erythema Neuro Neuro Narrative: Light touch intact Debridement Note Debridement Note Wound debrided: R.Leg Laterality: Left Wound Grade/Stage: Type of Debridement: Excisional debridement Anesthesia Used: 4% Lidocaine Solution Depth: in the subcutaneous layer Percentage of wound debrided: 100 Instrument Used: #15 blade and Forceps Tissue Removed: fibrous, devitalized subcutaneous, biofilm, slough Severity: Fat Layer Exposed Amount of bleeding with debridement: Mild Bleeding Controlled with: Pressure Patient tolerated procedure: Patient tolerated procedure well Post-Debridement Measurements and Additional Note: Post-Debridement Measurements/Treatment WC - Nurse 1 - General Ulcer Assessment Start: 05/26/22 13:57 Freq: Status: Active Protocol: TIMOTHY.[email or web address] Activity Type Activity Date Activity User E-sign Co-sign Detail Recorded Client Recorded Date Recorded By Document 05/26/22 13:57 [facility] [id number] 05/26/22 14:04 [facility] 05/26/22 13:57 - Today's Visit Information Type of service Follow-up Visit (Physician/[employer] ) Arrival Mode Ambulatory Transfer Assistance None Patient Identification Verified (Name & Yes ) Patient Requires Transmission-Based No Precautions Height and Weight Weight Measurement Method Estimated by Patient Body Mass Index (BMI) 34.0 BMI Classification Obese Vital Signs Pulse Rate (60-100) 79 Pulse Location Monitor Respiratory Rate (12-18) 16 Respiratory rate source Observation Oxygen Delivery Method Room Air Blood Pressure (90/60-120/80) 168/86 H Blood Pressure Mean (mm Hg) 113 Source Monitor Position Sitting Blood Pressure Location Left Arm History Since Last Visit- (Skip if this is Patient's initial visit) Have you changed medications since your No last visit? Any new allergies or adverse reactions No Had a fall/change in ADL's that may No increase risk of falls Signs or symptoms of abuse and/or No neglect since last visit Have you been in the hospital since your No last visit? Has dressing in place as prescribed Yes Has compression in place as prescribed No Has offloadiing in place as prescribed N/A Experienced any changes in pain level or No management Left Footwear Regular Shoe Right Footwear Regular Shoe Pain Scale: 0-10 Numeric Is Patient Pain Free? Yes - Nurse 1 - General Ulcer Measurement Start: 05/26/22 13:57 Freq: Status: Active Protocol: Activity Type Activity Date Activity User E-sign Co-sign Detail Recorded Client Recorded Date Recorded By Document 05/26/22 13:57 [facility] [id number] 05/26/22 14:04 [facility] 05/26/22 13:57 Wound Center Nurse 1 3-left hallux -Combined with other wound No -Current Size (cm) - Length 0.1 -Current Size (cm) - Width 0.1 -Current Size (cm) - Depth 0.1 -Total Square Cm 0.01 -Date of Last Picture (Recall this 05/26/22 field) -Photo Taken Yes -Epithelialization Large 67-100% #4 R 2ND TOE -Combined with other wound No -Current Size (cm) - Length 0.1 -Current Size (cm) - Width 0.1 -Current Size (cm) - Depth 0.1 -Total Square Cm 0.01 -Date of Last Picture (Recall this 05/26/22 field) -Photo Taken Yes -Epithelialization Large 67-100% #2 R LE -Combined with other wound No -Current Size (cm) - Length 2.8 -Current Size (cm) - Width 4.1 -Current Size (cm) - Depth 0.8 -Total Square Cm 11.48 -Date of Last Picture (Recall this 05/26/22 field) -Photo Taken Yes -Epithelialization Small 1-33% -Tunneling No -Undermining/Tunneling No -Circular Undermining No -Exudate Amt Medium -Exudate Type Serosanguineous -Wound Margin Distinct, Outline Attached -Granulation Amt Medium (34-66%) -Granulation Quality Pale,Red -Slough/Fibrin Yes -Necrosis Amt Medium (34-66%) -Necrotic Tissue Type Adherent Slough -Texture (Alethea-wound Skin Appearance) Assessed, Scarring -Moisture (Alethea-wound Skin Appearance) Assessed -Color (Alethea-wound Skin Appearance) Assessed, Hemosiderin Staining -Temperature (Alethea-wound Skin No Abnormality Appearance) (Pt Warm) -Tenderness on Palpation (Alethea-wound No Skin Appearance) -Ulcer Cleansing Rinsed/ Irrigated with Saline -Foul Odor after Cleansing No -Anesthetic Used 5% Lidocaine Gel Lower Limb Edema Present Yes Right Calf (cm) 40.7 Right Ankle (cm) 26 Left Calf (cm) 39.3 Left Ankle (cm) 24.3 WC - Nurse 2 - General Ulcer CM Notes Start: 05/26/22 13:57 Freq: Status: Active Protocol: Activity Type Activity Date Activity User E-sign Co-sign Detail Recorded Client Recorded Date Recorded By Document 05/26/22 14:25 [facility] [id number] 05/26/22 14:28 [facility] 05/26/22 14:25 Wound Center Nurse 2 3-left hallux -Correct Patient No -Correct Side, Site, Position No -Correct Procedure No -Procedure Performed No -Post Debridement (cm) - Length 0 -Post Debridement (cm) - Width 0 -Post Debridement (cm) - Depth 0 -Total Square (Post) (cm) 0 -Area of Debridement (cm) - Length 0 -Area of Debridement (cm) - Width 0 -Total Square (Area) (cm) 0 -Wound/Ulcer Outcome Healed- Epithelialized #4 R 2ND TOE -Correct Patient No -Correct Side, Site, Position No -Correct Procedure No -Procedure Performed No -Post Debridement (cm) - Length 0 -Post Debridement (cm) - Width 0 -Post Debridement (cm) - Depth 0 -Total Square (Post) (cm) 0 -Area of Debridement (cm) - Length 0 -Area of Debridement (cm) - Width 0 -Total Square (Area) (cm) 0 -Wound/Ulcer Outcome Healed- Epithelialized #2 R LE -Time 14:26 -Correct Patient Yes -Correct Side, Site, Position Yes -Correct Procedure Yes -Procedure Performed Yes -Type of Procedure Debridement -Clinical Debridement Subcutaneous -Tissue Removed Subcutaneous -Post Debridement (cm) - Length 2.8 -Post Debridement (cm) - Width 4.2 -Post Debridement (cm) - Depth 0.8 -Total Square (Post) (cm) 11.76 -Area of Debridement (cm) - Length 2.8 -Area of Debridement (cm) - Width 4.2 -Total Square (Area) (cm) 11.76 -Tunneling No -Undermining/Tunneling No -Circular Undermining No -Wound/Ulcer Outcome Not Healed -Ulcer Cleansing Rinsed/ Irrigated with Saline -Foul Odor after Cleansing No -Bioengineered Tissue No -Bleeding Controlled with Pressure -Treatment Response Procedure Tolerated Well -Offloading No -Debridement - Subq, 1st 20sq cm Yes Pain Scale: 0-10 Numeric Is Patient Pain Free? Yes WC - Nurse 3 - General Ulcer D/C NN Start: 05/26/22 13:57 Freq: Status: Active Protocol: Activity Type Activity Date Activity User E-sign Co-sign Detail Recorded Client Recorded Date Recorded By Document 05/26/22 14:33 DL [id number] 05/26/22 14:34 DL 05/26/22 14:33 Wound Care Nurse 3 #2 R LE -Ulcer Cleansing Rinsed/ Irrigated with Saline -Foul Odor after Cleansing No -Primary Dressing Applied Aquacel AG 4x4 -Primary Dressing Covered/Secured with Dry Gauze & Roll Gauze, Secured with Tape -Aquacel AG 4x4 1 Right -Tubular Bandage Double Layer -Size of Tubigrip Used Size D -Size D ($) 2 Treatment Response Procedure Tolerated Well Pain Scale: 0-10 Numeric Is Patient Pain Free? Yes WC - Visit Discharge Discharge Condition Stable Ambulatory Status Ambulatory Transportation Private [facility] Facility Type Home Health Orders Sent Yes Assessment/Plan Assessment/Plan (1) Chronic ulcer of right leg with fat layer exposed: CODE(S): L97.912 - Non-pressure chronic ulcer of unspecified part of right lower leg with fat layer exposed (2) Chronic ulcer of right foot with fat layer exposed: CODE(S): L97.512 - Non-pressure chronic ulcer of other part of right foot with fat layer exposed PLAN: healed (3) Localized edema: CODE(S): R60.0 - Localized edema (4) Right leg pain: CODE(S): M79.604 - Pain in right leg (5) Laceration of right lower leg: CODE(S): S81.811A - Laceration without foreign body, right lower leg, initial encounter (6) Chronic ulcer of left foot with fat layer exposed: CODE(S): L97.522 - Non-pressure chronic ulcer of other part of left foot with fat layer exposed PLAN: healed PLAN: Plan I reviewed and discussed her case today.? Debridement was performed today as noted in the clinical panel to the ulcer site. Dressing: aquacell ag and gauze with secondary dressing was applied right leg. Toe ulcers have healed; no dressing needed. Wash: Antibacterial soap and water.? To avoid soaking Tissue growth optimization: Advanced application will be considered after improving granular base. Indications and benefits were discussed. Prior authorization for epicord and epifix was started to prevent limb loss, healing delays, and infection risk. This is medically necessary. She has demonstrated delayed healing already and has completed standard wound care program so far. Offload: To reduce pressure and ulcer by application of compression garment Vascular: Noninvasive lower extremity arterial studies with ordered to confirm adequate perfusion. She was encouraged to get this scheduled sooner if available; she is scheduled for June 19, 2022. Edema: Double layer Tubigrip applied.?? Elevate limbs at rest.? Venous Doppler with reflux evaluation was ordered to assess for venous insufficiency Infection: It is noted she was previously treated for cellulitis in her leg and she completed several course of antibiotics.? To monitor for development of local or systemic illness. I do not recommend additional antibiotics at this time. Diagnostic data: Ordered x-ray of limb (right lower extremity).? Tibia-fibula x-ray right lower extremity was reviewed with soft tissue discontinuity noted to anterior mid lower leg without soft tissue emphysema and deeper compartments, fracture, dislocation, periosteal reaction to adjacent tibia.? 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 Pain: This is controlled at this time Host factors: Her comorbidities are noted.? I also recommend nutritional supplementation optimize healing, Radu. Note: [employer] speech recognition truck mechanic apprentice software was used to create portions of this document. Sound-alike and misspelled words, as well as other truck mechanic apprentice errors may be contained in the documentation. I answered all the patient's questions.? To return to the wound healing center in 1 week or call sooner if the patient has any questions or concerns. 11 minutes was spent on this encounter. This included face to face and non face to face care including preparing for the visit, reviewing the history, performing the exam, counseling and providing education to the patient, family, or caregiver, ordering medications/test/ procedures if indicated as documented, communicating with other healthcare providers, documenting information in the medical record, interpreting / sharing this information when indicated as documented, and care coordination.
[2022-06-02 13:26] VITALS: BP 139/81; PULSE 78; RESP 16; TEMP 36.6; BMI 34.0
--- NOTE | 2022-06-02 13:55 | PCM.WC.PN ---
History of Present Illness Date of Service: 06/02/22 Chief Complaint: Right leg History of Wound: This 81-year-old female follows up for right leg ulcer that occurred early March 2022 after a corn shaker fell on her leg. She is performing dressing changes as advised. She reports continued mild to moderate drainage. She did wound care last week as advised. She denies fever, chill, nausea, vomiting. Progress of Wound: improving Objective Data Objective Data Vital Signs: Vital Signs Temp Pulse Resp BP O2 Del Method 98 F 78 16 139/81 H Room Air 06/02/22 13:26 06/02/22 13:26 06/02/22 13:26 06/02/22 13:26 06/02/22 13:26 Oxygen Delivery Method Room Air Weight: 81.647 kg Body Mass Index (BMI) 34.0 Physical Exam Const alert and oriented x3 General Appearance: cooperative Extremity Extremity Narrative: No calf tenderness Diminished pulses Muscle wasting noted General Extremity: edema and no tenderness to palpation of joints or extremities; Negative for cyanosis Skin Skin Narrative: no purulence, no streaking, no odor, no infection. skin discontinuity to right leg with scant fibrous and increased granular base and some probing to deeper structures without probe to bone (reduced depth). tender to touch. no bogginess or fluctuance. peripheral hyperpigmentation noted. Skin healed with full epithelialization noted to the dorsal right second toe and also to the distal plantar toe pulp of the left hallux General Skin Exam: Negative for erythema Neuro Neuro Narrative: Light touch intact Debridement Note Debridement Note Wound debrided: R.Leg Laterality: Right Wound Grade/Stage: Type of Debridement: Excisional debridement Anesthesia Used: 4% Lidocaine Solution Depth: in the subcutaneous layer Percentage of wound debrided: 100 Instrument Used: #15 blade and Forceps Tissue Removed: fibrous, devitalized subcutaneous, biofilm, slough Severity: Fat Layer Exposed Amount of bleeding with debridement: Mild Bleeding Controlled with: Pressure Patient tolerated procedure: Patient tolerated procedure well Post-Debridement Measurements and Additional Note: Post-Debridement Measurements/Treatment TIMOTHY - Nurse 1 - General Ulcer Assessment Start: 05/26/22 13:57 Freq: Status: Active Protocol: ANGY Activity Type Activity Date Activity User E-sign Co-sign Detail Recorded Client Recorded Date Recorded By Document 05/26/22 13:57 [facility] [id number] 05/26/22 14:04 [facility] Document 06/02/22 13:26 [facility] [id number] 06/02/22 13:31 [facility] 05/26/22 06/02/22 13:57 13:26 - Today's Visit Information Type of service Follow-up Visit Follow-up Visit (Physician/SILVERWARE ASSEMBLER (Physician/SILVERWARE ASSEMBLER ) ) Arrival Mode Ambulatory Ambulatory Transfer Assistance None None Patient Identification Verified (Name & Yes Yes ) Patient Requires Transmission-Based No No Precautions Height and Weight Weight Measurement Method Estimated by Patient Body Mass Index (BMI) 34.0 34.0 BMI Classification Obese Obese Vital Signs Temperature (97.8 F-99.1 F) 98 F Temperature Source Temporal Pulse Rate (60-100) 79 78 Pulse Location Monitor Monitor Respiratory Rate (12-18) 16 16 Respiratory rate source Observation Observation Oxygen Delivery Method Room Air Room Air Blood Pressure (90/60-120/80) 168/86 H 139/81 H Blood Pressure Mean (mm Hg) 113 100 Source Monitor Monitor Position Sitting Sitting Blood Pressure Location Left Arm Left Arm History Since Last Visit- (Skip if this is Patient's initial visit) Have you changed medications since your No No last visit? Any new allergies or adverse reactions No No Had a fall/change in ADL's that may No No increase risk of falls Signs or symptoms of abuse and/or No No neglect since last visit Have you been in the hospital since your No No last visit? Has dressing in place as prescribed Yes Yes Has compression in place as prescribed No Yes Has offloadiing in place as prescribed N/A N/A Experienced any changes in pain level or No No management Left Footwear Regular Shoe Regular Shoe Right Footwear Regular Shoe Regular Shoe Pain Scale: 0-10 Numeric Is Patient Pain Free? Yes Yes - Nurse 1 - General Ulcer Measurement Start: 05/26/22 13:57 Freq: Status: Active Protocol: Activity Type Activity Date Activity User E-sign Co-sign Detail Recorded Client Recorded Date Recorded By Document 05/26/22 13:57 [facility] [id number] 05/26/22 14:04 [facility] Document 06/02/22 13:26 [facility] [id number] 06/02/22 13:31 [facility] 05/26/22 06/02/22 13:57 13:26 Wound Center Nurse 1 3-left hallux -Combined with other wound No -Current Size (cm) - Length 0.1 -Current Size (cm) - Width 0.1 -Current Size (cm) - Depth 0.1 -Total Square Cm 0.01 -Date of Last Picture (Recall this 05/26/22 field) -Photo Taken Yes -Epithelialization Large 67-100% #4 R 2ND TOE -Combined with other wound No -Current Size (cm) - Length 0.1 -Current Size (cm) - Width 0.1 -Current Size (cm) - Depth 0.1 -Total Square Cm 0.01 -Date of Last Picture (Recall this 05/26/22 field) -Photo Taken Yes -Epithelialization Large 67-100% #2 R LE -Combined with other wound No No -Current Size (cm) - Length 2.8 0.9 -Current Size (cm) - Width 4.1 4 -Current Size (cm) - Depth 0.8 0.4 -Total Square Cm 11.48 3.6 -Date of Last Picture (Recall this 05/26/22 field) -Photo Taken Yes No -Epithelialization Small 1-33% Small 1-33% -Tunneling No No -Undermining/Tunneling No No -Circular Undermining No No -Exudate Amt Medium Large -Exudate Type Serosanguineous Serous -Wound Margin Distinct, Distinct, Outline Outline Attached Attached -Granulation Amt Medium (34-66%) Small (1-33%) -Granulation Quality Pale,Red [place] -Slough/Fibrin Yes Yes -Necrosis Amt Medium (34-66%) Large (67-100%) -Necrotic Tissue Type Adherent Slough Adherent Slough -Texture (Alethea-wound Skin Appearance) Assessed, Assessed, Scarring Scarring -Moisture (Alethea-wound Skin Appearance) Assessed Assessed -Color (Alethea-wound Skin Appearance) Assessed, Assessed, Hemosiderin Hemosiderin Staining Staining -Temperature (Alethea-wound Skin No Abnormality No Abnormality Appearance) (Pt Warm) (Pt Warm) -Tenderness on Palpation (Alethea-wound No No Skin Appearance) -Ulcer Cleansing Rinsed/ Rinsed/ Irrigated with Irrigated with Saline Saline -Foul Odor after Cleansing No No -Anesthetic Used 5% Lidocaine 5% Lidocaine Gel Gel Lower Limb Edema Present Yes Yes Right Calf (cm) 40.7 41.8 Right Ankle (cm) 26 26.4 Left Calf (cm) 39.3 Left Ankle (cm) 24.3 - Nurse 2 - General Ulcer CM Notes Start: 05/26/22 13:57 Freq: Status: Active Protocol: Activity Type Activity Date Activity User E-sign Co-sign Detail Recorded Client Recorded Date Recorded By Document 05/26/22 14:25 [id number] 05/26/22 14:28 Document 06/02/22 13:48 [id number] 06/02/22 13:50 05/26/22 06/02/22 14:25 13:48 Wound Center Nurse 2 3-left hallux -Correct Patient No -Correct Side, Site, Position No -Correct Procedure No -Procedure Performed No -Post Debridement (cm) - Length 0 -Post Debridement (cm) - Width 0 -Post Debridement (cm) - Depth 0 -Total Square (Post) (cm) 0 -Area of Debridement (cm) - Length 0 -Area of Debridement (cm) - Width 0 -Total Square (Area) (cm) 0 -Wound/Ulcer Outcome Healed- Epithelialized #4 R 2ND TOE -Correct Patient No -Correct Side, Site, Position No -Correct Procedure No -Procedure Performed No -Post Debridement (cm) - Length 0 -Post Debridement (cm) - Width 0 -Post Debridement (cm) - Depth 0 -Total Square (Post) (cm) 0 -Area of Debridement (cm) - Length 0 -Area of Debridement (cm) - Width 0 -Total Square (Area) (cm) 0 -Wound/Ulcer Outcome Healed- Epithelialized #2 R LE -Time 14:26 13:48 -Correct Patient Yes Yes -Correct Side, Site, Position Yes Yes -Correct Procedure Yes Yes -Procedure Performed Yes Yes -Type of Procedure Debridement Debridement -Clinical Debridement Subcutaneous Subcutaneous -Tissue Removed Subcutaneous Subcutaneous -Post Debridement (cm) - Length 2.8 1.0 -Post Debridement (cm) - Width 4.2 4 -Post Debridement (cm) - Depth 0.8 0.4 -Total Square (Post) (cm) 11.76 4.0 -Area of Debridement (cm) - Length 2.8 1.0 -Area of Debridement (cm) - Width 4.2 4 -Total Square (Area) (cm) 11.76 4.0 -Tunneling No No -Undermining/Tunneling No No -Circular Undermining No No -Wound/Ulcer Outcome Not Healed Not Healed -Ulcer Cleansing Rinsed/ Rinsed/ Irrigated with Irrigated with Saline Saline -Foul Odor after Cleansing No No -Bioengineered Tissue No Yes -Type of Bioengineered Tissue Epifix -Expiration Date 02/21/27 -Product Lot Number [id number] -Percent Used 100 -Lot number of Saline Used [id number] -Bleeding Controlled with Pressure Pressure -Treatment Response Procedure Procedure Tolerated Well Tolerated Well -Offloading No No -Debridement - Subq, 1st 20sq cm Yes No -Apply Skin Sub - 1st 25 sq cm - Legs 1 -Epifix (per sq cm) 4 Pain Scale: 0-10 Numeric Is Patient Pain Free? Yes Yes - Nurse 3 - General Ulcer D/C NN Start: 05/26/22 13:57 Freq: Status: Active Protocol: Activity Type Activity Date Activity User E-sign Co-sign Detail Recorded Client Recorded Date Recorded By Document 05/26/22 14:33 DL [id number] 05/26/22 14:34 DL Document 06/02/22 13:50 [id number] 06/02/22 13:50 05/26/22 06/02/22 14:33 13:50 Wound Care Nurse 3 #2 R LE -Ulcer Cleansing Rinsed/ Rinsed/ Irrigated with Irrigated with Saline Saline -Foul Odor after Cleansing No No -Primary Dressing Applied Aquacel AG 4x4 -Primary Dressing Covered/Secured with Dry Gauze & Dry Gauze & Roll Gauze, Roll Gauze, Secured with Secured with Tape Tape -Aquacel AG 4x4 1 Right -Tubular Bandage Double Layer Double Layer -Size of Tubigrip Used Size D Size D -Size D ($) 2 0 Treatment Response Procedure Tolerated Well Pain Scale: 0-10 Numeric Is Patient Pain Free? Yes Yes - Visit Discharge Discharge Condition Stable Stable Ambulatory Status Ambulatory Ambulatory Transportation Private Auto Private Auto Medication Reconcilliation completed & Yes provided to patient/care provider Clinical Summary of Care Provided Yes Facility Type Home Health Orders Sent Yes Assessment/Plan Assessment/Plan (1) Chronic ulcer of right leg with fat layer exposed: CODE(S): L97.912 - Non-pressure chronic ulcer of unspecified part of right lower leg with fat layer exposed (2) Localized edema: CODE(S): R60.0 - Localized edema PLAN: Plan I reviewed and discussed her case today.? Debridement was performed today as noted in the clinical panel to the ulcer site. Dressing: To keep secondary dressing that was applied over the epi fix advanced wound healing product intact clean and dry. It is okay to change a secondary dressing if she has strikethrough once a week. Wash: Antibacterial soap and water to the periwound site and to avoid getting the wound or advance wound product wet.? To avoid soaking Tissue growth optimization: Prior authorization for epifix was obtained and the benefits indications, and anticipated management were reviewed today. This is medically necessary. She has demonstrated delayed healing already and has completed standard wound care program so far. This was applied according standard protocol and was further secured in place with a wound veil and Steri-Strips. Verbal consent was obtained and she tolerated this well. A secondary dressing was applied and she will keep this clean, dry, and intact. Offload: To reduce pressure and ulcer by application of compression garment Vascular: Noninvasive lower extremity arterial studies with ordered to confirm adequate perfusion. She was encouraged to get this scheduled sooner if available; she is scheduled for June 19, 2022. Edema: Double layer Tubigrip applied.?? Elevate limbs at rest.? Venous Doppler with reflux evaluation was ordered to assess for venous insufficiency Infection: It is noted she was previously treated for cellulitis in her leg and she completed several course of antibiotics.? To monitor for development of local or systemic illness. I do not recommend additional antibiotics at this time. Diagnostic data: Ordered x-ray of limb (right lower extremity).? Tibia-fibula x-ray right lower extremity was reviewed with soft tissue discontinuity noted to anterior mid lower leg without soft tissue emphysema and deeper compartments, fracture, dislocation, periosteal reaction to adjacent tibia.? 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 Pain: This is controlled at this time Host factors: Her comorbidities are noted.? I also recommend nutritional supplementation optimize healing, Radu. Note: [employer] speech recognition meat department manager software was used to create portions of this document. Sound-alike and misspelled words, as well as other meat department manager errors may be contained in the documentation. I answered all the patient's questions.? To return to the wound healing center in 1 week or call sooner if the patient has any questions or concerns.
[2022-06-09 13:24] VITALS: RESP 22; TEMP 36.4; BMI 34.0
--- NOTE | 2022-06-09 14:02 | PCM.WC.PN ---
History of Present Illness Date of Service: 06/09/22 Chief Complaint: Right leg History of Wound: This 81-year-old female follows up for right leg ulcer that occurred early March 2022 after a corn shaker fell on her leg. She is performing dressing changes as advised. She reports continued mild to moderate drainage. She did wound care last week as advised. She denies fever, chill, nausea, vomiting. She has been wearing compression garments and taking nutritional supplementation as well. Progress of Wound: improving Objective Data Objective Data Vital Signs: Vital Signs Temp Pulse Resp BP O2 Del Method 97.5 F L 78 22 H 139/81 H Room Air 06/09/22 13:24 06/02/22 13:26 06/09/22 13:24 06/02/22 13:26 06/02/22 13:26 Oxygen Delivery Method Room Air Weight: 81.647 kg Body Mass Index (BMI) 34.0 Physical Exam Const alert and oriented x3 General Appearance: cooperative Extremity Extremity Narrative: No calf tenderness Diminished pulses Muscle wasting noted General Extremity: edema and no tenderness to palpation of joints or extremities; Negative for cyanosis Skin Skin Narrative: no purulence, no streaking, no odor, no infection. skin discontinuity to right leg with scant fibrous and increased granular base and some probing to deeper structures without probe to bone (reduced depth). tender to touch. no bogginess or fluctuance. peripheral hyperpigmentation noted. General Skin Exam: Negative for erythema Neuro Neuro Narrative: Light touch intact Debridement Note Debridement Note Wound debrided: R.Leg Laterality: Right Wound Grade/Stage: Type of Debridement: Excisional debridement Anesthesia Used: 4% Lidocaine Solution Depth: in the subcutaneous layer Percentage of wound debrided: 100 Instrument Used: #15 blade and Forceps Tissue Removed: fibrous, devitalized subcutaneous, biofilm, slough Severity: Fat Layer Exposed Amount of bleeding with debridement: Mild Bleeding Controlled with: Pressure Patient tolerated procedure: Patient tolerated procedure well Post-Debridement Measurements and Additional Note: Post-Debridement Measurements/Treatment - Nurse 1 - General Ulcer Assessment Start: 05/26/22 13:57 Freq: Status: Active Protocol: TIMOTHY.LOWEXMarie Activity Type Activity Date Activity User E-sign Co-sign Detail Recorded Client Recorded Date Recorded By Document 05/26/22 13:57 [facility] [id number] 05/26/22 14:04 [facility] Document 06/02/22 13:26 [facility] [id number] 06/02/22 13:31 BMF Document 06/09/22 13:24 DL [id number] 06/09/22 13:28 DL 05/26/22 06/02/22 06/09/22 13:57 13:26 13:24 - Today's Visit Information Type of service Follow-up Visit Follow-up Visit Follow-up Visit (Physician/BODY CLEANER (Physician/BODY CLEANER (Physician/BODY CLEANER ) ) ) Arrival Mode Ambulatory Ambulatory Ambulatory Transfer Assistance None None None Patient Identification Verified (Name & Yes Yes Yes ) Patient Requires Transmission-Based No No No Precautions Height and Weight Weight Measurement Method Estimated by Patient Body Mass Index (BMI) 34.0 34.0 34.0 BMI Classification Obese Obese Obese Vital Signs Temperature (97.8 F-99.1 F) 98 F 97.5 F L Temperature Source Temporal Temporal Pulse Rate (60-100) 79 78 Pulse Location Monitor Monitor Respiratory Rate (12-18) 16 16 22 H Respiratory rate source Observation Observation Observation Oxygen Delivery Method Room Air Room Air Blood Pressure (90/60-120/80) 168/86 H 139/81 H Blood Pressure Mean (mm Hg) 113 100 Source Monitor Monitor Position Sitting Sitting Blood Pressure Location Left Arm Left Arm History Since Last Visit- (Skip if this is Patient's initial visit) Have you changed medications since your No No last visit? Any new allergies or adverse reactions No No Had a fall/change in ADL's that may No No increase risk of falls Signs or symptoms of abuse and/or No No neglect since last visit Have you been in the hospital since your No No last visit? Has dressing in place as prescribed Yes Yes Has compression in place as prescribed No Yes Has offloadiing in place as prescribed N/A N/A Experienced any changes in pain level or No No management Left Footwear Regular Shoe Regular Shoe Right Footwear Regular Shoe Regular Shoe Pain Scale: 0-10 Numeric Is Patient Pain Free? Yes Yes Yes - Nurse 1 - General Ulcer Measurement Start: 05/26/22 13:57 Freq: Status: Active Protocol: Activity Type Activity Date Activity User E-sign Co-sign Detail Recorded Client Recorded Date Recorded By Document 05/26/22 13:57 [facility] [id number] 05/26/22 14:04 [facility] Document 06/02/22 13:26 [facility] [id number] 06/02/22 13:31 BM Document 06/09/22 13:24 DL [id number] 06/09/22 13:28 DL 05/26/22 06/02/22 06/09/22 13:57 13:26 13:24 Wound Center Nurse 1 3-left hallux -Combined with other wound No -Current Size (cm) - Length 0.1 -Current Size (cm) - Width 0.1 -Current Size (cm) - Depth 0.1 -Total Square Cm 0.01 -Date of Last Picture (Recall this 05/26/22 field) -Photo Taken Yes -Epithelialization Large 67-100% #4 R 2ND TOE -Combined with other wound No -Current Size (cm) - Length 0.1 -Current Size (cm) - Width 0.1 -Current Size (cm) - Depth 0.1 -Total Square Cm 0.01 -Date of Last Picture (Recall this 05/26/22 field) -Photo Taken Yes -Epithelialization Large 67-100% #2 R LE -Combined with other wound No No -Current Size (cm) - Length 2.8 0.9 0.9 -Current Size (cm) - Width 4.1 4 3.5 -Current Size (cm) - Depth 0.8 0.4 0.3 -Total Square Cm 11.48 3.6 3.15 -Date of Last Picture (Recall this 05/26/22 field) -Photo Taken Yes No No -Epithelialization Small 1-33% Small 1-33% -Tunneling No No -Undermining/Tunneling No No -Circular Undermining No No -Exudate Amt Medium Large Small -Exudate Type Serosanguineous Serous Serosanguineous -Wound Margin Distinct, Distinct, Distinct, Outline Outline Outline Attached Attached Attached -Granulation Amt Medium (34-66%) Small (1-33%) Medium (34-66%) -Granulation Quality Pale,Red [place] Red -Slough/Fibrin Yes Yes -Necrosis Amt Medium (34-66%) Large (67-100%) Medium (34-66%) -Necrotic Tissue Type Adherent Slough Adherent Slough Adherent Slough -Structure Exposed N/A -Texture (Alethea-wound Skin Appearance) Assessed, Assessed, Scarring Scarring Scarring -Moisture (Alethea-wound Skin Appearance) Assessed Assessed Dry/Scaly -Color (Alethea-wound Skin Appearance) Assessed, Assessed, Hemosiderin Hemosiderin Hemosiderin Staining Staining Staining -Temperature (Alethea-wound Skin No Abnormality No Abnormality No Abnormality Appearance) (Pt Warm) (Pt Warm) (Pt Warm) -Tenderness on Palpation (Alethea-wound No No Yes Skin Appearance) -Ulcer Cleansing Rinsed/ Rinsed/ Soap and Water Irrigated with Irrigated with Saline Saline -Foul Odor after Cleansing No No No -Anesthetic Used 5% Lidocaine 5% Lidocaine 5% Lidocaine Gel Gel Gel Lower Limb Edema Present Yes Yes Right Calf (cm) 40.7 41.8 41.8 Right Ankle (cm) 26 26.4 24.1 Left Calf (cm) 39.3 Left Ankle (cm) 24.3 WC - Nurse 2 - General Ulcer CM Notes Start: 05/26/22 13:57 Freq: Status: Active Protocol: Activity Type Activity Date Activity User E-sign Co-sign Detail Recorded Client Recorded Date Recorded By Document 05/26/22 14:25 [id number] 05/26/22 14:28 Document 06/02/22 13:48 [id number] 06/02/22 13:50 Document 06/09/22 13:40 [id number] 06/09/22 13:43 05/26/22 06/02/22 06/09/22 14:25 13:48 13:40 Wound Center Nurse 2 3-left hallux -Correct Patient No -Correct Side, Site, Position No -Correct Procedure No -Procedure Performed No -Post Debridement (cm) - Length 0 -Post Debridement (cm) - Width 0 -Post Debridement (cm) - Depth 0 -Total Square (Post) (cm) 0 -Area of Debridement (cm) - Length 0 -Area of Debridement (cm) - Width 0 -Total Square (Area) (cm) 0 -Wound/Ulcer Outcome Healed- Epithelialized #4 R 2ND TOE -Correct Patient No -Correct Side, Site, Position No -Correct Procedure No -Procedure Performed No -Post Debridement (cm) - Length 0 -Post Debridement (cm) - Width 0 -Post Debridement (cm) - Depth 0 -Total Square (Post) (cm) 0 -Area of Debridement (cm) - Length 0 -Area of Debridement (cm) - Width 0 -Total Square (Area) (cm) 0 -Wound/Ulcer Outcome Healed- Epithelialized #2 R LE -Time 14:26 13:48 13:40 -Correct Patient Yes Yes Yes -Correct Side, Site, Position Yes Yes Yes -Correct Procedure Yes Yes Yes -Procedure Performed Yes Yes Yes -Type of Procedure Debridement Debridement Debridement -Clinical Debridement Subcutaneous Subcutaneous Subcutaneous -Tissue Removed Subcutaneous Subcutaneous Subcutaneous -Post Debridement (cm) - Length 2.8 1.0 1 -Post Debridement (cm) - Width 4.2 4 3.5 -Post Debridement (cm) - Depth 0.8 0.4 0.2 -Total Square (Post) (cm) 11.76 4.0 3.5 -Area of Debridement (cm) - Length 2.8 1.0 1 -Area of Debridement (cm) - Width 4.2 4 3.5 -Total Square (Area) (cm) 11.76 4.0 3.5 -Tunneling No No No -Undermining/Tunneling No No No -Circular Undermining No No No -Wound/Ulcer Outcome Not Healed Not Healed Not Healed -Ulcer Cleansing Rinsed/ Rinsed/ Rinsed/ Irrigated with Irrigated with Irrigated with Saline Saline Saline -Foul Odor after Cleansing No No No -Bioengineered Tissue No Yes Yes -Type of Bioengineered Tissue Epifix Epifix -Expiration Date 02/21/27 02/21/27 -Product Lot Number [id number] -Percent Used 100 100 -Lot number of Saline Used [id number] -Bleeding Controlled with Pressure Pressure Pressure -Treatment Response Procedure Procedure Procedure Tolerated Well Tolerated Well Tolerated Well -Offloading No No No -Debridement - Subq, 1st 20sq cm Yes No No -Apply Skin Sub - 1st 25 sq cm - Legs 1 1 -Epifix (per sq cm) 4 4 Pain Scale: 0-10 Numeric Is Patient Pain Free? Yes Yes Yes WC - Nurse 3 - General Ulcer D/C NN Start: 05/26/22 13:57 Freq: Status: Active Protocol: Activity Type Activity Date Activity User E-sign Co-sign Detail Recorded Client Recorded Date Recorded By Document 08/03/22 14:33 DL [id number] 05/26/22 14:34 DL Document 06/02/22 13:50 JF [id number] 06/02/22 13:50 JF Document 06/09/22 13:48 RB [id number] 06/09/22 13:48 RB 05/26/22 06/02/22 06/09/22 14:33 13:50 13:48 Wound Care Nurse 3 #2 R LE -Ulcer Cleansing Rinsed/ Rinsed/ Irrigated with Irrigated with Saline Saline -Foul Odor after Cleansing No No -Primary Dressing Applied Aquacel AG 4x4 -Primary Dressing Covered/Secured with Dry Gauze & Dry Gauze & Dry Gauze,Dry Roll Gauze, Roll Gauze, Gauze & Roll Secured with Secured with Gauze,Secured Tape Tape with Tape -Aquacel AG 4x4 1 Right -Tubular Bandage Double Layer Double Layer Single Layer -Size of Tubigrip Used Size D Size D Size E -Size D ($) 2 0 -Size E ($) 1 Treatment Response Procedure Procedure Tolerated Well Tolerated Well Pain Scale: 0-10 Numeric Is Patient Pain Free? Yes Yes Yes WC - Visit Discharge Discharge Condition Stable Stable Stable Ambulatory Status Ambulatory Ambulatory Ambulatory Transportation Private Auto Private Auto Private Auto Medication Reconcilliation completed & Yes No provided to patient/care provider Clinical Summary of Care Provided Yes Yes Facility Type Home Health Orders Sent Yes Assessment/Plan Assessment/Plan (1) Chronic ulcer of right leg with fat layer exposed: CODE(S): L97.912 - Non-pressure chronic ulcer of unspecified part of right lower leg with fat layer exposed (2) Localized edema: CODE(S): R60.0 - Localized edema PLAN: Plan I reviewed and discussed her case today.? Debridement was performed today as noted in the clinical panel to the ulcer site. Dressing: To keep secondary dressing that was applied over the epi fix advanced wound healing product intact clean and dry. It is okay to change a secondary dressing if she has strikethrough once a week. Wash: Antibacterial soap and water to the periwound site and to avoid getting the wound or advance wound product wet.? To avoid soaking Tissue growth optimization: Prior authorization for epifix was obtained and the benefits indications, and anticipated management were reviewed today. This is medically necessary. She has demonstrated delayed healing already and has completed standard wound care program so far. This was applied according standard protocol and was further secured in place with a wound veil and Steri-Strips. Verbal consent was obtained and she tolerated this well. A secondary dressing was applied and she will keep this clean, dry, and intact. Offload: To reduce pressure and ulcer by application of compression garment Vascular: Noninvasive lower extremity arterial studies with ordered to confirm adequate perfusion. She was encouraged to get this scheduled sooner if available; she is scheduled for June 19, 2022. Edema: Double layer Tubigrip applied.?? Elevate limbs at rest.? Venous Doppler with reflux evaluation was ordered to assess for venous insufficiency Infection: It is noted she was previously treated for cellulitis in her leg and she completed several course of antibiotics.? To monitor for development of local or systemic illness. I do not recommend additional antibiotics at this time. Diagnostic data: Ordered x-ray of limb (right lower extremity).? Tibia-fibula x-ray right lower extremity was reviewed with soft tissue discontinuity noted to anterior mid lower leg without soft tissue emphysema and deeper compartments, fracture, dislocation, periosteal reaction to adjacent tibia.? 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 Pain: This is controlled at this time Host factors: Her comorbidities are noted.? I also recommend nutritional supplementation optimize healing, Radu. Note: [employer] speech recognition rn mds coordinator software was used to create portions of this document. Sound-alike and misspelled words, as well as other rn mds coordinator errors may be contained in the documentation. I answered all the patient's questions.? To return to the wound healing center in 1 week or call sooner if the patient has any questions or concerns.
[2022-06-16 14:05] VITALS: BP 103/73; PULSE 81; RESP 18; TEMP 36.6; BMI 34.0
--- NOTE | 2022-06-16 15:16 | PN.PCM_ITS ---
History of Present Illness Date of Service: 06/16/22 Chief Complaint: Right leg History of Wound: This 81-year-old female follows up for right leg ulcer that occurred early March 2022 after a corn shaker fell on her leg. She is performing dressing changes as advised. She reports continued mild to moderate drainage. She kept her applied epi fix clean, dry, and intact. She denies fever, chill, nausea, vomiting. She has been wearing compression garments and taking nutritional supplementation as well. Progress of Wound: improving Objective Data Objective Data Vital Signs: Vital Signs Temp Pulse Resp BP O2 Del Method 97.8 F 81 18 103/73 Room Air 06/16/22 14:05 06/16/22 14:05 06/16/22 14:05 06/16/22 14:05 06/02/22 13:26 Oxygen Delivery Method Room Air Weight: 81.647 kg Body Mass Index (BMI) 34.0 Debridement Note Debridement Note Wound debrided: R.Leg Laterality: Right Wound Grade/Stage: Type of Debridement: Excisional debridement Anesthesia Used: 4% Lidocaine Solution Depth: in the subcutaneous layer Percentage of wound debrided: 100 Instrument Used: #15 blade Tissue Removed: fibrous, devitalized subcutaneous, biofilm, slough Severity: Fat Layer Exposed Amount of bleeding with debridement: Mild Bleeding Controlled with: Pressure Patient tolerated procedure: Patient tolerated procedure well Post-Debridement Measurements and Additional Note: Post-Debridement Measurements/Treatment - Nurse 1 - General Ulcer Assessment Start: 05/26/22 13:57 Freq: Status: Active Protocol: ANGY Activity Type Activity Date Activity User E-sign Co-sign Detail Recorded Client Recorded Date Recorded By Document 05/26/22 13:57 [facility] [id number] 05/26/22 14:04 [facility] Document 06/02/22 13:26 [facility] [id number] 06/02/22 13:31 BMF Document 06/09/22 13:24 DL [id number] 06/09/22 13:28 DL Document 06/16/22 14:05 RB [id number] 06/16/22 14:14 RB 05/26/22 06/02/22 06/09/22 13:57 13:26 13:24 - Today's Visit Information Type of service Follow-up Visit Follow-up Visit Follow-up Visit (Physician/AV SPECIALIST (Physician/AV SPECIALIST (Physician/AV SPECIALIST ) ) ) Arrival Mode Ambulatory Ambulatory Ambulatory Transfer Assistance None None None Patient Identification Verified (Name & Yes Yes Yes ) Patient Requires Transmission-Based No No No Precautions Height and Weight Weight Measurement Method Estimated by Patient Body Mass Index (BMI) 34.0 34.0 34.0 BMI Classification Obese Obese Obese Vital Signs Temperature (97.8 F-99.1 F) 98 F 97.5 F L Temperature Source Temporal Temporal Pulse Rate (60-100) 79 78 Pulse Location Monitor Monitor Respiratory Rate (12-18) 16 16 22 H Respiratory rate source Observation Observation Observation Oxygen Delivery Method Room Air Room Air Blood Pressure (90/60-120/80) 168/86 H 139/81 H Blood Pressure Mean (mm Hg) 113 100 Source Monitor Monitor Position Sitting Sitting Blood Pressure Location Left Arm Left Arm History Since Last Visit- (Skip if this is Patient's initial visit) Have you changed medications since your No No last visit? Any new allergies or adverse reactions No No Had a fall/change in ADL's that may No No increase risk of falls Signs or symptoms of abuse and/or No No neglect since last visit Have you been in the hospital since your No No last visit? Has dressing in place as prescribed Yes Yes Has compression in place as prescribed No Yes Has offloadiing in place as prescribed N/A N/A Experienced any changes in pain level or No No management Left Footwear Regular Shoe Regular Shoe Right Footwear Regular Shoe Regular Shoe Pain Scale: 0-10 Numeric Is Patient Pain Free? Yes Yes Yes 06/16/22 14:05 WC - Today's Visit Information Type of service Follow-up Visit (Physician/AV SPECIALIST ) Arrival Mode Ambulatory Transfer Assistance None Patient Identification Verified (Name & Yes ) Patient Requires Transmission-Based No Precautions Height and Weight Weight Measurement Method Body Mass Index (BMI) 34.0 BMI Classification Obese Vital Signs Temperature (97.8 F-99.1 F) 97.8 F Temperature Source Temporal Pulse Rate (60-100) 81 Pulse Location Monitor Respiratory Rate (12-18) 18 Respiratory rate source Observation Oxygen Delivery Method Blood Pressure (90/60-120/80) 103/73 Blood Pressure Mean (mm Hg) 83 Source Monitor Position Semi-Fowlers Blood Pressure Location Left Arm History Since Last Visit- (Skip if this is Patient's initial visit) Have you changed medications since your No last visit? Any new allergies or adverse reactions No Had a fall/change in ADL's that may No increase risk of falls Signs or symptoms of abuse and/or No neglect since last visit Have you been in the hospital since your No last visit? Has dressing in place as prescribed Yes Has compression in place as prescribed Yes Has offloadiing in place as prescribed No Experienced any changes in pain level or No management Left Footwear Regular Shoe Right Footwear Regular Shoe Pain Scale: 0-10 Numeric Is Patient Pain Free? Yes WC - Nurse 1 - General Ulcer Measurement Start: 05/26/22 13:57 Freq: Status: Active Protocol: Activity Type Activity Date Activity User E-sign Co-sign Detail Recorded Client Recorded Date Recorded By Document 05/26/22 13:57 [facility] [id number] 05/26/22 14:04 BM Document 06/02/22 13:26 BM [id number] 06/02/22 13:31 BMF Document 06/09/22 13:24 DL [id number] 06/09/22 13:28 DL Document 06/16/22 14:05 RB [id number] 06/16/22 14:14 RB 05/26/22 06/02/22 06/09/22 13:57 13:26 13:24 Wound Center Nurse 1 3-left hallux -Combined with other wound No -Current Size (cm) - Length 0.1 -Current Size (cm) - Width 0.1 -Current Size (cm) - Depth 0.1 -Total Square Cm 0.01 -Date of Last Picture (Recall this 05/26/22 field) -Photo Taken Yes -Epithelialization Large 67-100% #4 R 2ND TOE -Combined with other wound No -Current Size (cm) - Length 0.1 -Current Size (cm) - Width 0.1 -Current Size (cm) - Depth 0.1 -Total Square Cm 0.01 -Date of Last Picture (Recall this 05/26/22 field) -Photo Taken Yes -Epithelialization Large 67-100% #2 R LE -Combined with other wound No No -Current Size (cm) - Length 2.8 0.9 0.9 -Current Size (cm) - Width 4.1 4 3.5 -Current Size (cm) - Depth 0.8 0.4 0.3 -Total Square Cm 11.48 3.6 3.15 -Date of Last Picture (Recall this 05/26/22 field) -Photo Taken Yes No No -Epithelialization Small 1-33% Small 1-33% -Tunneling No No -Undermining/Tunneling No No -Circular Undermining No No -Exudate Amt Medium Large Small -Exudate Type Serosanguineous Serous Serosanguineous -Wound Margin Distinct, Distinct, Distinct, Outline Outline Outline Attached Attached Attached -Granulation Amt Medium (34-66%) Small (1-33%) Medium (34-66%) -Granulation Quality Pale,Red [place] Red -Slough/Fibrin Yes Yes -Necrosis Amt Medium (34-66%) Large (67-100%) Medium (34-66%) -Necrotic Tissue Type Adherent Slough Adherent Slough Adherent Slough -Structure Exposed N/A -Texture (Alethea-wound Skin Appearance) Assessed, Assessed, Scarring Scarring Scarring -Moisture (Alethea-wound Skin Appearance) Assessed Assessed Dry/Scaly -Color (Alethea-wound Skin Appearance) Assessed, Assessed, Hemosiderin Hemosiderin Hemosiderin Staining Staining Staining -Temperature (Alethea-wound Skin No Abnormality No Abnormality No Abnormality Appearance) (Pt Warm) (Pt Warm) (Pt Warm) -Tenderness on Palpation (Alethea-wound No No Yes Skin Appearance) -Ulcer Cleansing Rinsed/ Rinsed/ Soap and Water Irrigated with Irrigated with Saline Saline -Foul Odor after Cleansing No No No -Anesthetic Used 5% Lidocaine 5% Lidocaine 5% Lidocaine Gel Gel Gel Lower Limb Edema Present Yes Yes Right Calf (cm) 40.7 41.8 41.8 Right Ankle (cm) 26 26.4 24.1 Left Calf (cm) 39.3 Left Ankle (cm) 24.3 06/16/22 14:05 Wound Center Nurse 1 3-left hallux -Combined with other wound -Current Size (cm) - Length -Current Size (cm) - Width -Current Size (cm) - Depth -Total Square Cm -Date of Last Picture (Recall this field) -Photo Taken -Epithelialization #4 R 2ND TOE -Combined with other wound -Current Size (cm) - Length -Current Size (cm) - Width -Current Size (cm) - Depth -Total Square Cm -Date of Last Picture (Recall this field) -Photo Taken -Epithelialization #2 R LE -Combined with other wound No -Current Size (cm) - Length 0.9 -Current Size (cm) - Width 2.8 -Current Size (cm) - Depth 0.2 -Total Square Cm 2.52 -Date of Last Picture (Recall this field) -Photo Taken Yes -Epithelialization -Tunneling No -Undermining/Tunneling No -Circular Undermining No -Exudate Amt Large -Exudate Type Serosanguineous -Wound Margin Distinct, Outline Attached -Granulation Amt Medium (34-66%) -Granulation Quality [place] -Slough/Fibrin Yes -Necrosis Amt Small (1-33%) -Necrotic Tissue Type Adherent Slough -Structure Exposed N/A -Texture (Alethea-wound Skin Appearance) Assessed, Scarring -Moisture (Alethea-wound Skin Appearance) Assessed -Color (Alethea-wound Skin Appearance) Assessed -Temperature (Alethea-wound Skin No Abnormality Appearance) (Pt Warm) -Tenderness on Palpation (Alethea-wound No Skin Appearance) -Ulcer Cleansing Wound Cleanser -Foul Odor after Cleansing No -Anesthetic Used 5% Lidocaine Gel Lower Limb Edema Present Yes Right Calf (cm) 42 Right Ankle (cm) 24.5 Left Calf (cm) Left Ankle (cm) WC - Nurse 2 - General Ulcer CM Notes Start: 05/26/22 13:57 Freq: Status: Active Protocol: Activity Type Activity Date Activity User E-sign Co-sign Detail Recorded Client Recorded Date Recorded By Document 05/26/22 14:25 [id number] 05/26/22 14:28 Document 06/02/22 13:48 [id number] 06/02/22 13:50 Document 06/09/22 13:40 [id number] 06/09/22 13:43 Document 06/16/22 14:25 [id number] 06/16/22 14:27 05/26/22 06/02/22 06/09/22 14:25 13:48 13:40 Wound Center Nurse 2 3-left hallux -Correct Patient No -Correct Side, Site, Position No -Correct Procedure No -Procedure Performed No -Post Debridement (cm) - Length 0 -Post Debridement (cm) - Width 0 -Post Debridement (cm) - Depth 0 -Total Square (Post) (cm) 0 -Area of Debridement (cm) - Length 0 -Area of Debridement (cm) - Width 0 -Total Square (Area) (cm) 0 -Wound/Ulcer Outcome Healed- Epithelialized #4 R 2ND TOE -Correct Patient No -Correct Side, Site, Position No -Correct Procedure No -Procedure Performed No -Post Debridement (cm) - Length 0 -Post Debridement (cm) - Width 0 -Post Debridement (cm) - Depth 0 -Total Square (Post) (cm) 0 -Area of Debridement (cm) - Length 0 -Area of Debridement (cm) - Width 0 -Total Square (Area) (cm) 0 -Wound/Ulcer Outcome Healed- Epithelialized #2 R LE -Time 14:26 13:48 13:40 -Correct Patient Yes Yes Yes -Correct Side, Site, Position Yes Yes Yes -Correct Procedure Yes Yes Yes -Procedure Performed Yes Yes Yes -Type of Procedure Debridement Debridement Debridement -Clinical Debridement Subcutaneous Subcutaneous Subcutaneous -Tissue Removed Subcutaneous Subcutaneous Subcutaneous -Post Debridement (cm) - Length 2.8 1.0 1 -Post Debridement (cm) - Width 4.2 4 3.5 -Post Debridement (cm) - Depth 0.8 0.4 0.2 -Total Square (Post) (cm) 11.76 4.0 3.5 -Area of Debridement (cm) - Length 2.8 1.0 1 -Area of Debridement (cm) - Width 4.2 4 3.5 -Total Square (Area) (cm) 11.76 4.0 3.5 -Tunneling No No No -Undermining/Tunneling No No No -Circular Undermining No No No -Wound/Ulcer Outcome Not Healed Not Healed Not Healed -Ulcer Cleansing Rinsed/ Rinsed/ Rinsed/ Irrigated with Irrigated with Irrigated with Saline Saline Saline -Foul Odor after Cleansing No No No -Bioengineered Tissue No Yes Yes -Type of Bioengineered Tissue Epifix Epifix -Expiration Date 02/21/27 02/21/27 -Product Lot Number [id number] -Percent Used 100 100 -Lot number of Saline Used [id number] -Bleeding Controlled with Pressure Pressure Pressure -Treatment Response Procedure Procedure Procedure Tolerated Well Tolerated Well Tolerated Well -Offloading No No No -Debridement - Subq, 1st 20sq cm Yes No No -Apply Skin Sub - 1st 25 sq cm - Legs 1 1 -Epifix (per sq cm) 4 4 Pain Scale: 0-10 Numeric Is Patient Pain Free? Yes Yes Yes 06/16/22 14:25 Wound Center Nurse 2 3-left hallux -Correct Patient -Correct Side, Site, Position -Correct Procedure -Procedure Performed -Post Debridement (cm) - Length -Post Debridement (cm) - Width -Post Debridement (cm) - Depth -Total Square (Post) (cm) -Area of Debridement (cm) - Length -Area of Debridement (cm) - Width -Total Square (Area) (cm) -Wound/Ulcer Outcome #4 R 2ND TOE -Correct Patient -Correct Side, Site, Position -Correct Procedure -Procedure Performed -Post Debridement (cm) - Length -Post Debridement (cm) - Width -Post Debridement (cm) - Depth -Total Square (Post) (cm) -Area of Debridement (cm) - Length -Area of Debridement (cm) - Width -Total Square (Area) (cm) -Wound/Ulcer Outcome #2 R LE -Time 14:25 -Correct Patient Yes -Correct Side, Site, Position Yes -Correct Procedure Yes -Procedure Performed Yes -Type of Procedure Debridement -Clinical Debridement Subcutaneous -Tissue Removed Subcutaneous -Post Debridement (cm) - Length 0.9 -Post Debridement (cm) - Width 2.8 -Post Debridement (cm) - Depth 0.1 -Total Square (Post) (cm) 2.52 -Area of Debridement (cm) - Length 0.3 -Area of Debridement (cm) - Width 2.8 -Total Square (Area) (cm) 0.84 -Tunneling No -Undermining/Tunneling No -Circular Undermining No -Wound/Ulcer Outcome Not Healed -Ulcer Cleansing Rinsed/ Irrigated with Saline -Foul Odor after Cleansing No -Bioengineered Tissue Yes -Type of Bioengineered Tissue Epifix -Expiration Date 03/24/27 -Product Lot Number [id number] -Percent Used 100 -Lot number of Saline Used [id number] -Bleeding Controlled with Pressure -Treatment Response Procedure Tolerated Well -Offloading No -Debridement - Subq, 1st 20sq cm No -Apply Skin Sub - 1st 25 sq cm - Legs 1 -Epifix (per sq cm) 4 Pain Scale: 0-10 Numeric Is Patient Pain Free? Yes - Nurse 3 - General Ulcer D/C NN Start: 05/26/22 13:57 Freq: Status: Active Protocol: Activity Type Activity Date Activity User E-sign Co-sign Detail Recorded Client Recorded Date Recorded By Document 05/26/22 14:33 DL [id number] 05/26/22 14:34 DL Document 06/02/22 13:50 JF [id number] 06/02/22 13:50 JF Document 06/09/22 13:48 RB [id number] 06/09/22 13:48 RB Document 06/16/22 14:38 RB [id number] 06/16/22 14:39 RB 05/26/22 06/02/22 06/09/22 14:33 13:50 13:48 Wound Care Nurse 3 #2 R LE -Ulcer Cleansing Rinsed/ Rinsed/ Irrigated with Irrigated with Saline Saline -Foul Odor after Cleansing No No -Primary Dressing Applied Aquacel AG 4x4 -Primary Dressing Covered/Secured with Dry Gauze & Dry Gauze & Dry Gauze,Dry Roll Gauze, Roll Gauze, Gauze & Roll Secured with Secured with Gauze,Secured Tape Tape with Tape -Aquacel AG 4x4 1 Right -Tubular Bandage Double Layer Double Layer Single Layer -Size of Tubigrip Used Size D Size D Size E -Size D ($) 2 0 -Size E ($) 1 Treatment Response Procedure Procedure Tolerated Well Tolerated Well Pain Scale: 0-10 Numeric Is Patient Pain Free? Yes Yes Yes - Visit Discharge Discharge Condition Stable Stable Stable Ambulatory Status Ambulatory Ambulatory Ambulatory Transportation Private Auto Private Auto Private Auto Medication Reconcilliation completed & Yes No provided to patient/care provider Clinical Summary of Care Provided Yes Yes Facility Type Home Health Orders Sent Yes 06/16/22 14:38 Wound Care Nurse 3 #2 R LE -Ulcer Cleansing -Foul Odor after Cleansing -Primary Dressing Applied -Primary Dressing Covered/Secured with Dry Gauze,Dry Gauze & Roll Gauze,Secured with Tape -Aquacel AG 4x4 Right -Tubular Bandage Single Layer -Size of Tubigrip Used Size E -Size D ($) -Size E ($) 1 Treatment Response Procedure Tolerated Well Pain Scale: 0-10 Numeric Is Patient Pain Free? Yes WC - Visit Discharge Discharge Condition Stable Ambulatory Status Ambulatory Transportation Private Auto Medication Reconcilliation completed & No provided to patient/care provider Clinical Summary of Care Provided Yes Facility Type Orders Sent Assessment/Plan Assessment/Plan (1) Chronic ulcer of right leg with fat layer exposed: CODE(S): L97.912 - Non-pressure chronic ulcer of unspecified part of right lower leg with fat layer exposed (2) Localized edema: CODE(S): R60.0 - Localized edema PLAN: Plan I reviewed and discussed her case today.? Debridement was performed today as noted in the clinical panel to the ulcer site. Dressing: To keep secondary dressing that was applied over the epi fix advanced wound healing product intact clean and dry. It is okay to change a secondary dressing if she has strikethrough once a week. Wash: Antibacterial soap and water to the periwound site and to avoid getting the wound or advance wound product wet.? To avoid soaking Tissue growth optimization: Prior authorization for epifix was obtained and the benefits indications, and anticipated management were reviewed today. This is medically necessary. She has demonstrated delayed healing already and has completed standard wound care program so far. This was applied according standard protocol and was further secured in place with a wound veil and Steri- Strips. Verbal consent was obtained and she tolerated this well. A secondary dressing was applied and she will keep this clean, dry, and intact. Offload: To reduce pressure and ulcer by application of compression garment Vascular: Noninvasive lower extremity arterial studies with ordered to confirm adequate perfusion. She was encouraged to get this scheduled sooner if available; she is scheduled for June 19, 2022. Edema: Double layer Tubigrip applied.?? Elevate limbs at rest.? Venous Doppler with reflux evaluation was ordered to assess for venous insufficiency Infection: It is noted she was previously treated for cellulitis in her leg and she completed several course of antibiotics.? To monitor for development of local or systemic illness. I do not recommend additional antibiotics at this time. Diagnostic data: Ordered x-ray of limb (right lower extremity).? Tibia-fibula x- ray right lower extremity was reviewed with soft tissue discontinuity noted to anterior mid lower leg without soft tissue emphysema and deeper compartments, fracture, dislocation, periosteal reaction to adjacent tibia.? 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 Pain: This is controlled at this time Host factors: Her comorbidities are noted.? I also recommend nutritional supplementation optimize healing, Radu. Note: Enabled Employment speech recognition direct sales consultant software was used to create portions of this document. Sound-alike and misspelled words, as well as other direct sales consultant errors may be contained in the documentation. I answered all the patient's questions.? To return to the wound healing center in 1 week or call sooner if the patient has any questions or concerns.
[2022-06-23 13:53] VITALS: BP 139/52; PULSE 76; RESP 18; TEMP 36.4; BMI 34.0
--- NOTE | 2022-06-23 14:15 | PCM.WC.PN ---
History of Present Illness Date of Service: 06/23/22 Chief Complaint: Right leg History of Wound: This 81-year-old female follows up for right leg ulcer that occurred early March 2022 after a corn shaker fell on her leg. She is performing dressing changes as advised. She reports continued mild to moderate drainage. She kept her applied epi fix clean, dry, and intact. She denies fever, chill, nausea, vomiting. She has been wearing compression garments and taking nutritional supplementation as well. She reports rare drainage and thinks this is healing well. Progress of Wound: improving Objective Data Objective Data Vital Signs: Vital Signs Temp Pulse Resp BP O2 Del Method 97.5 F L 76 18 139/52 H Room Air 06/23/22 13:53 06/23/22 13:53 06/23/22 13:53 06/23/22 13:53 06/02/22 13:26 Oxygen Delivery Method Room Air Weight: 81.647 kg Body Mass Index (BMI) 34.0 Physical Exam Const alert and oriented x3 General Appearance: cooperative Extremity Extremity Narrative: No calf tenderness Diminished pulses Muscle wasting noted General Extremity: edema and no tenderness to palpation of joints or extremities; Negative for cyanosis Skin Skin Narrative: no purulence, no streaking, no odor, no infection. skin discontinuity to right leg with scant fibrous and increased granular base and some probing to deeper structures without probe to bone (reduced depth). tender to touch. no bogginess or fluctuance. peripheral hyperpigmentation noted. General Skin Exam: Negative for erythema Neuro Neuro Narrative: Light touch intact Debridement Note Debridement Note Wound debrided: R.Leg Laterality: Right Wound Grade/Stage: Type of Debridement: Excisional debridement Anesthesia Used: 4% Lidocaine Solution Depth: in the subcutaneous layer Percentage of wound debrided: 100 Instrument Used: #15 blade Tissue Removed: fibrous, devitalized subcutaneous, biofilm, slough Severity: Fat Layer Exposed Amount of bleeding with debridement: Mild Bleeding Controlled with: Pressure Patient tolerated procedure: Patient tolerated procedure well Post-Debridement Measurements and Additional Note: Post-Debridement Measurements/Treatment TIMOTHY - Nurse 1 - General Ulcer Assessment Start: 05/26/22 13:57 Freq: Status: Active Protocol: ANGY Activity Type Activity Date Activity User E-sign Co-sign Detail Recorded Client Recorded Date Recorded By Document 05/26/22 13:57 [facility] [id number] 05/26/22 14:04 BMF Document 06/02/22 13:26 BMF [id number] 06/02/22 13:31 BMF Document 06/09/22 13:24 DL [id number] 06/09/22 13:28 DL Document 06/16/22 14:05 RB [id number] 06/16/22 14:14 RB Document 06/23/22 13:53 DL [id number] 06/23/22 13:58 DL 05/26/22 06/02/22 06/09/22 13:57 13:26 13:24 WC - Today's Visit Information Type of service Follow-up Visit Follow-up Visit Follow-up Visit (Physician/PROTECTIVE SERVICES CASE WORKER (Physician/PROTECTIVE SERVICES CASE WORKER (Physician/PROTECTIVE SERVICES CASE WORKER ) ) ) Arrival Mode Ambulatory Ambulatory Ambulatory Transfer Assistance None None None Patient Identification Verified (Name & Yes Yes Yes ) Patient Requires Transmission-Based No No No Precautions Height and Weight Weight Measurement Method Estimated by Patient Body Mass Index (BMI) 34.0 34.0 34.0 BMI Classification Obese Obese Obese Vital Signs Temperature (97.8 F-99.1 F) 98 F 97.5 F L Temperature Source Temporal Temporal Pulse Rate (60-100) 79 78 Pulse Location Monitor Monitor Respiratory Rate (12-18) 16 16 22 H Respiratory rate source Observation Observation Observation Oxygen Delivery Method Room Air Room Air Blood Pressure (90/60-120/80) 168/86 H 139/81 H Blood Pressure Mean (mm Hg) 113 100 Source Monitor Monitor Position Sitting Sitting Blood Pressure Location Left Arm Left Arm History Since Last Visit- (Skip if this is Patient's initial visit) Have you changed medications since your No No last visit? Any new allergies or adverse reactions No No Had a fall/change in ADL's that may No No increase risk of falls Signs or symptoms of abuse and/or No No neglect since last visit Have you been in the hospital since your No No last visit? Has dressing in place as prescribed Yes Yes Has compression in place as prescribed No Yes Has offloadiing in place as prescribed N/A N/A Experienced any changes in pain level or No No management Left Footwear Regular Shoe Regular Shoe Right Footwear Regular Shoe Regular Shoe Pain Scale: 0-10 Numeric Is Patient Pain Free? Yes Yes Yes 06/16/22 06/23/22 14:05 13:53 WC - Today's Visit Information Type of service Follow-up Visit Follow-up Visit (Physician/PROTECTIVE SERVICES CASE WORKER (Physician/PROTECTIVE SERVICES CASE WORKER ) ) Arrival Mode Ambulatory Ambulatory Transfer Assistance None None Patient Identification Verified (Name & Yes Yes ) Patient Requires Transmission-Based No No Precautions Height and Weight Weight Measurement Method Body Mass Index (BMI) 34.0 34.0 BMI Classification Obese Obese Vital Signs Temperature (97.8 F-99.1 F) 97.8 F 97.5 F L Temperature Source Temporal Temporal Pulse Rate (60-100) 81 76 Pulse Location Monitor Monitor Respiratory Rate (12-18) 18 18 Respiratory rate source Observation Observation Oxygen Delivery Method Blood Pressure (90/60-120/80) 103/73 139/52 H Blood Pressure Mean (mm Hg) 83 81 Source Monitor Monitor Position Semi-Fowlers Blood Pressure Location Left Arm History Since Last Visit- (Skip if this is Patient's initial visit) Have you changed medications since your No No last visit? Any new allergies or adverse reactions No No Had a fall/change in ADL's that may No No increase risk of falls Signs or symptoms of abuse and/or No No neglect since last visit Have you been in the hospital since your No No last visit? Has dressing in place as prescribed Yes Yes Has compression in place as prescribed Yes Yes Has offloadiing in place as prescribed No Experienced any changes in pain level or No No management Left Footwear Regular Shoe Right Footwear Regular Shoe Pain Scale: 0-10 Numeric Is Patient Pain Free? Yes Yes - Nurse 1 - General Ulcer Measurement Start: 05/26/22 13:57 Freq: Status: Active Protocol: Activity Type Activity Date Activity User E-sign Co-sign Detail Recorded Client Recorded Date Recorded By Document 05/26/22 13:57 [facility] [id number] 05/26/22 14:04 [facility] Document 06/02/22 13:26 [facility] [id number] 06/02/22 13:31 [facility] Document 06/09/22 13:24 DL [id number] 06/09/22 13:28 DL Document 06/16/22 14:05 RB [id number] 06/16/22 14:14 RB Document 06/23/22 13:53 DL [id number] 06/23/22 13:58 DL 05/26/22 06/02/22 06/09/22 13:57 13:26 13:24 Wound Center Nurse 1 3-left hallux -Combined with other wound No -Current Size (cm) - Length 0.1 -Current Size (cm) - Width 0.1 -Current Size (cm) - Depth 0.1 -Total Square Cm 0.01 -Date of Last Picture (Recall this 05/26/22 field) -Photo Taken Yes -Epithelialization Large 67-100% #4 R 2ND TOE -Combined with other wound No -Current Size (cm) - Length 0.1 -Current Size (cm) - Width 0.1 -Current Size (cm) - Depth 0.1 -Total Square Cm 0.01 -Date of Last Picture (Recall this 05/26/22 field) -Photo Taken Yes -Epithelialization Large 67-100% #2 R LE -Combined with other wound No No -Current Size (cm) - Length 2.8 0.9 0.9 -Current Size (cm) - Width 4.1 4 3.5 -Current Size (cm) - Depth 0.8 0.4 0.3 -Total Square Cm 11.48 3.6 3.15 -Date of Last Picture (Recall this 05/26/22 field) -Photo Taken Yes No No -Epithelialization Small 1-33% Small 1-33% -Tunneling No No -Undermining/Tunneling No No -Circular Undermining No No -Exudate Amt Medium Large Small -Exudate Type Serosanguineous Serous Serosanguineous -Wound Margin Distinct, Distinct, Distinct, Outline Outline Outline Attached Attached Attached -Granulation Amt Medium (34-66%) Small (1-33%) Medium (34-66%) -Granulation Quality Pale,Red [place] Red -Slough/Fibrin Yes Yes -Necrosis Amt Medium (34-66%) Large (67-100%) Medium (34-66%) -Necrotic Tissue Type Adherent Slough Adherent Slough Adherent Slough -Structure Exposed N/A -Texture (Alethea-wound Skin Appearance) Assessed, Assessed, Scarring Scarring Scarring -Moisture (Alethea-wound Skin Appearance) Assessed Assessed Dry/Scaly -Color (Alethea-wound Skin Appearance) Assessed, Assessed, Hemosiderin Hemosiderin Hemosiderin Staining Staining Staining -Temperature (Alethea-wound Skin No Abnormality No Abnormality No Abnormality Appearance) (Pt Warm) (Pt Warm) (Pt Warm) -Tenderness on Palpation (Alethea-wound No No Yes Skin Appearance) -Ulcer Cleansing Rinsed/ Rinsed/ Soap and Water Irrigated with Irrigated with Saline Saline -Foul Odor after Cleansing No No No -Anesthetic Used 5% Lidocaine 5% Lidocaine 5% Lidocaine Gel Gel Gel Lower Limb Edema Present Yes Yes Right Calf (cm) 40.7 41.8 41.8 Right Ankle (cm) 26 26.4 24.1 Left Calf (cm) 39.3 Left Ankle (cm) 24.3 06/16/22 06/23/22 14:05 13:53 Wound Center Nurse 1 3-left hallux -Combined with other wound -Current Size (cm) - Length -Current Size (cm) - Width -Current Size (cm) - Depth -Total Square Cm -Date of Last Picture (Recall this field) -Photo Taken -Epithelialization #4 R 2ND TOE -Combined with other wound -Current Size (cm) - Length -Current Size (cm) - Width -Current Size (cm) - Depth -Total Square Cm -Date of Last Picture (Recall this field) -Photo Taken -Epithelialization #2 R LE -Combined with other wound No -Current Size (cm) - Length 0.9 0.2 -Current Size (cm) - Width 2.8 1.3 -Current Size (cm) - Depth 0.2 0.1 -Total Square Cm 2.52 0.26 -Date of Last Picture (Recall this field) -Photo Taken Yes No -Epithelialization -Tunneling No -Undermining/Tunneling No -Circular Undermining No -Exudate Amt Large Small -Exudate Type Serosanguineous -Wound Margin Distinct, Distinct, Outline Outline Attached Attached -Granulation Amt Medium (34-66%) Small (1-33%) -Granulation Quality [place] -Slough/Fibrin Yes -Necrosis Amt Small (1-33%) Small (1-33%) -Necrotic Tissue Type Adherent Slough Adherent Slough -Structure Exposed N/A N/A -Texture (Alethea-wound Skin Appearance) Assessed, Localized Edema Scarring ,Scarring -Moisture (Alethea-wound Skin Appearance) Assessed Dry/Scaly -Color (Alethea-wound Skin Appearance) Assessed Hemosiderin Staining -Temperature (Alethea-wound Skin No Abnormality No Abnormality Appearance) (Pt Warm) (Pt Warm) -Tenderness on Palpation (Alethea-wound No No Skin Appearance) -Ulcer Cleansing Wound Cleanser Rinsed/ Irrigated with Saline -Foul Odor after Cleansing No No -Anesthetic Used 5% Lidocaine 5% Lidocaine Gel Gel Lower Limb Edema Present Yes Right Calf (cm) 42 41.6 Right Ankle (cm) 24.5 25.5 Left Calf (cm) Left Ankle (cm) WC - Nurse 2 - General Ulcer CM Notes Start: 05/26/22 13:57 Freq: Status: Active Protocol: Activity Type Activity Date Activity User E-sign Co-sign Detail Recorded Client Recorded Date Recorded By Document 05/26/22 14:25 [id number] 05/26/22 14:28 Document 06/02/22 13:48 [id number] 06/02/22 13:50 Document 06/09/22 13:40 [id number] 06/09/22 13:43 Document 06/16/22 14:25 [id number] 06/16/22 14:27 Document 06/23/22 14:11 [id number] 06/23/22 14:14 05/26/22 06/02/22 06/09/22 14:25 13:48 13:40 Wound Center Nurse 2 3-left hallux -Correct Patient No -Correct Side, Site, Position No -Correct Procedure No -Procedure Performed No -Post Debridement (cm) - Length 0 -Post Debridement (cm) - Width 0 -Post Debridement (cm) - Depth 0 -Total Square (Post) (cm) 0 -Area of Debridement (cm) - Length 0 -Area of Debridement (cm) - Width 0 -Total Square (Area) (cm) 0 -Wound/Ulcer Outcome Healed- Epithelialized #4 R 2ND TOE -Correct Patient No -Correct Side, Site, Position No -Correct Procedure No -Procedure Performed No -Post Debridement (cm) - Length 0 -Post Debridement (cm) - Width 0 -Post Debridement (cm) - Depth 0 -Total Square (Post) (cm) 0 -Area of Debridement (cm) - Length 0 -Area of Debridement (cm) - Width 0 -Total Square (Area) (cm) 0 -Wound/Ulcer Outcome Healed- Epithelialized #2 R LE -Time 14:26 13:48 13:40 -Correct Patient Yes Yes Yes -Correct Side, Site, Position Yes Yes Yes -Correct Procedure Yes Yes Yes -Procedure Performed Yes Yes Yes -Type of Procedure Debridement Debridement Debridement -Clinical Debridement Subcutaneous Subcutaneous Subcutaneous -Tissue Removed Subcutaneous Subcutaneous Subcutaneous -Post Debridement (cm) - Length 2.8 1.0 1 -Post Debridement (cm) - Width 4.2 4 3.5 -Post Debridement (cm) - Depth 0.8 0.4 0.2 -Total Square (Post) (cm) 11.76 4.0 3.5 -Area of Debridement (cm) - Length 2.8 1.0 1 -Area of Debridement (cm) - Width 4.2 4 3.5 -Total Square (Area) (cm) 11.76 4.0 3.5 -Tunneling No No No -Undermining/Tunneling No No No -Circular Undermining No No No -Wound/Ulcer Outcome Not Healed Not Healed Not Healed -Ulcer Cleansing Rinsed/ Rinsed/ Rinsed/ Irrigated with Irrigated with Irrigated with Saline Saline Saline -Foul Odor after Cleansing No No No -Bioengineered Tissue No Yes Yes -Type of Bioengineered Tissue Epifix Epifix -Expiration Date 02/21/27 02/21/27 -Product Lot Number [id number] -Percent Used 100 100 -Lot number of Saline Used [id number] -Bleeding Controlled with Pressure Pressure Pressure -Treatment Response Procedure Procedure Procedure Tolerated Well Tolerated Well Tolerated Well -Offloading No No No -Debridement - Subq, 1st 20sq cm Yes No No -Apply Skin Sub - 1st 25 sq cm - Legs 1 1 -Epifix (per sq cm) 4 4 -Epifix 18mm Disc Pain Scale: 0-10 Numeric Is Patient Pain Free? Yes Yes Yes 06/16/22 06/23/22 14:25 14:11 Wound Center Nurse 2 3-left hallux -Correct Patient -Correct Side, Site, Position -Correct Procedure -Procedure Performed -Post Debridement (cm) - Length -Post Debridement (cm) - Width -Post Debridement (cm) - Depth -Total Square (Post) (cm) -Area of Debridement (cm) - Length -Area of Debridement (cm) - Width -Total Square (Area) (cm) -Wound/Ulcer Outcome #4 R 2ND TOE -Correct Patient -Correct Side, Site, Position -Correct Procedure -Procedure Performed -Post Debridement (cm) - Length -Post Debridement (cm) - Width -Post Debridement (cm) - Depth -Total Square (Post) (cm) -Area of Debridement (cm) - Length -Area of Debridement (cm) - Width -Total Square (Area) (cm) -Wound/Ulcer Outcome #2 R LE -Time 14:25 14:11 -Correct Patient Yes Yes -Correct Side, Site, Position Yes Yes -Correct Procedure Yes Yes -Procedure Performed Yes Yes -Type of Procedure Debridement Debridement -Clinical Debridement Subcutaneous Subcutaneous -Tissue Removed Subcutaneous Subcutaneous -Post Debridement (cm) - Length 0.9 0.3 -Post Debridement (cm) - Width 2.8 1.5 -Post Debridement (cm) - Depth 0.1 0.1 -Total Square (Post) (cm) 2.52 0.45 -Area of Debridement (cm) - Length 0.3 0.3 -Area of Debridement (cm) - Width 2.8 1.5 -Total Square (Area) (cm) 0.84 0.45 -Tunneling No No -Undermining/Tunneling No No -Circular Undermining No No -Wound/Ulcer Outcome Not Healed Not Healed -Ulcer Cleansing Rinsed/ Rinsed/ Irrigated with Irrigated with Saline Saline -Foul Odor after Cleansing No No -Bioengineered Tissue Yes Yes -Type of Bioengineered Tissue Epifix Epifix 18mm Disc -Expiration Date 03/24/27 02/21/27 -Product Lot Number [id number] -Percent Used 100 100 -Lot number of Saline Used [id number] -Bleeding Controlled with Pressure Pressure -Treatment Response Procedure Procedure Tolerated Well Tolerated Well -Offloading No No -Debridement - Subq, 1st 20sq cm No No -Apply Skin Sub - 1st 25 sq cm - Legs 1 1 -Epifix (per sq cm) 4 -Epifix 18mm Disc 3 Pain Scale: 0-10 Numeric Is Patient Pain Free? Yes Yes WC - Nurse 3 - General Ulcer D/C NN Start: 05/26/22 13:57 Freq: Status: Active Protocol: Activity Type Activity Date Activity User E-sign Co-sign Detail Recorded Client Recorded Date Recorded By Document 05/26/22 14:33 DL [id number] 05/26/22 14:34 DL Document 06/02/22 13:50 [id number] 06/02/22 13:50 JF Document 06/09/22 13:48 RB [id number] 06/09/22 13:48 RB Document 06/16/22 14:38 RB [id number] 06/16/22 14:39 RB 05/26/22 06/02/22 06/09/22 14:33 13:50 13:48 Wound Care Nurse 3 #2 R LE -Ulcer Cleansing Rinsed/ Rinsed/ Irrigated with Irrigated with Saline Saline -Foul Odor after Cleansing No No -Primary Dressing Applied Aquacel AG 4x4 -Primary Dressing Covered/Secured with Dry Gauze & Dry Gauze & Dry Gauze,Dry Roll Gauze, Roll Gauze, Gauze & Roll Secured with Secured with Gauze,Secured Tape Tape with Tape -Aquacel AG 4x4 1 Right -Tubular Bandage Double Layer Double Layer Single Layer -Size of Tubigrip Used Size D Size D Size E -Size D ($) 2 0 -Size E ($) 1 Treatment Response Procedure Procedure Tolerated Well Tolerated Well Pain Scale: 0-10 Numeric Is Patient Pain Free? Yes Yes Yes WC - Visit Discharge Discharge Condition Stable Stable Stable Ambulatory Status Ambulatory Ambulatory Ambulatory Transportation Private Auto Private Auto Private Auto Medication Reconcilliation completed & Yes No provided to patient/care provider Clinical Summary of Care Provided Yes Yes Facility Type Home Health Orders Sent Yes 06/16/22 14:38 Wound Care Nurse 3 #2 R LE -Ulcer Cleansing -Foul Odor after Cleansing -Primary Dressing Applied -Primary Dressing Covered/Secured with Dry Gauze,Dry Gauze & Roll Gauze,Secured with Tape -Aquacel AG 4x4 Right -Tubular Bandage Single Layer -Size of Tubigrip Used Size E -Size D ($) -Size E ($) 1 Treatment Response Procedure Tolerated Well Pain Scale: 0-10 Numeric Is Patient Pain Free? Yes WC - Visit Discharge Discharge Condition Stable Ambulatory Status Ambulatory Transportation Private Auto Medication Reconcilliation completed & No provided to patient/care provider Clinical Summary of Care Provided Yes Facility Type Orders Sent Assessment/Plan Assessment/Plan (1) Chronic ulcer of right leg with fat layer exposed: CODE(S): L97.912 - Non-pressure chronic ulcer of unspecified part of right lower leg with fat layer exposed (2) Localized edema: CODE(S): R60.0 - Localized edema PLAN: Plan I reviewed and discussed her case today.? Debridement was performed today as noted in the clinical panel to the ulcer site. Dressing: To keep secondary dressing that was applied over the epi fix advanced wound healing product intact clean and dry. It is okay to change a secondary dressing if she has strikethrough once a week. Wash: Antibacterial soap and water to the periwound site and to avoid getting the wound or advance wound product wet.? To avoid soaking Tissue growth optimization: Prior authorization for epifix was obtained and the benefits indications, and anticipated management were reviewed today. This is medically necessary. She has demonstrated delayed healing already and has completed standard wound care program so far. This was applied according standard protocol and was further secured in place with a wound veil and Steri-Strips. Verbal consent was obtained and she tolerated this well. A secondary dressing was applied and she will keep this clean, dry, and intact. Offload: To reduce pressure and ulcer by application of compression garment Vascular: Noninvasive lower extremity arterial studies with ordered to confirm adequate perfusion. She was encouraged to get this scheduled sooner if available; she is scheduled for June 19, 2022. Edema: Double layer Tubigrip applied.?? Elevate limbs at rest.? Venous Doppler with reflux evaluation was ordered to assess for venous insufficiency Infection: It is noted she was previously treated for cellulitis in her leg and she completed several course of antibiotics.? To monitor for development of local or systemic illness. I do not recommend additional antibiotics at this time. Diagnostic data: Ordered x-ray of limb (right lower extremity).? Tibia-fibula x-ray right lower extremity was reviewed with soft tissue discontinuity noted to anterior mid lower leg without soft tissue emphysema and deeper compartments, fracture, dislocation, periosteal reaction to adjacent tibia.? 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 Pain: This is controlled at this time Host factors: Her comorbidities are noted.? I also recommend nutritional supplementation optimize healing, Radu. Note: [employer] speech recognition retail cosmetics sales counter manager software was used to create portions of this document. Sound-alike and misspelled words, as well as other retail cosmetics sales counter manager errors may be contained in the documentation. I answered all the patient's questions.? To return to the wound healing center in 1 week or call sooner if the patient has any questions or concerns.
== END 2022-06-23 23:59 ==
LOC: WC 14:00
PROVIDERS: PCP Physician Assistant Medical; Visit Provider Podiatrist
DX: L97.912 Non-pressure chronic ulcer of unspecified part of right lower leg with fat layer exposed (principal); R60.0 Localized edema; Z79.01 Long term (current) use of anticoagulants; Z79.899 Other long term (current) drug therapy
CPT/HCPCS: 11042; 15271; Q4186

== ENCOUNTER 2022-06-30 14:48 | Outpatient (RCR) | payer MEDICARE, SELFPAY ==
[2022-06-24 00:37] VITALS: BP 139/52; PULSE 76; RESP 18; TEMP 36.4; BMI 34.0
[2022-06-30 14:55] VITALS: BP 158/75; PULSE 86; RESP 18; TEMP 36.1; BMI 34.0
--- NOTE | 2022-06-30 15:52 | PN.PCM_ITS ---
History of Present Illness Date of Service: 06/30/22 Chief Complaint: Right leg History of Wound: This 81-year-old female follows up for right leg ulcer that occurred early March 2022 after a corn shaker fell on her leg. She is performing dressing changes as advised. She reports continued mild to moderate drainage. She kept her applied epi fix clean, dry, and intact. She denies fever, chill, nausea, vomiting. She has been wearing compression garments and taking nutritional supplementation as well. She reports rare drainage and thinks this is healing well. Progress of Wound: Improving Objective Data Objective Data Vital Signs: Vital Signs Temp Pulse Resp BP 97.0 F L 86 18 158/75 H 06/30/22 14:55 06/30/22 14:55 06/30/22 14:55 06/30/22 14:55 Weight: 81.647 kg Body Mass Index (BMI) 34.0 Physical Exam Const alert and oriented x3 General Appearance: cooperative Extremity Extremity Narrative: No calf tenderness Diminished pulses Muscle wasting noted General Extremity: edema and no tenderness to palpation of joints or extremities; Negative for cyanosis Skin Skin Narrative: no purulence, no streaking, no odor, no infection. skin discontinuity to right leg with scant fibrous and increased granular base and now resolved probing to deeper structures without probe to bone (reduced depth). tender to touch decreased. no bogginess or fluctuance. peripheral hyperpigmentation noted. General Skin Exam: Negative for erythema Neuro Neuro Narrative: Light touch intact Debridement Note Debridement Note Wound debrided: R.Leg Laterality: Right Wound Grade/Stage: Type of Debridement: Excisional debridement Anesthesia Used: 4% Lidocaine Solution Depth: in the subcutaneous layer Percentage of wound debrided: 100 Instrument Used: #15 blade Tissue Removed: fibrous, devitalized subcutaneous, biofilm, slough Severity: Fat Layer Exposed Amount of bleeding with debridement: Mild Bleeding Controlled with: Pressure Patient tolerated procedure: Patient tolerated procedure well Post-Debridement Measurements and Additional Note: Post-Debridement Measurements/Treatment - Nurse 1 - General Ulcer Assessment Start: 06/30/22 14:55 Freq: Status: Active Protocol: LOWEXT Activity Type Activity Date Activity User E-sign Co-sign Detail Recorded Client Recorded Date Recorded By Document 06/30/22 14:55 [email or web address] [id number] 06/30/22 14:58 NAWAF 06/30/22 14:55 - Today's Visit Information Type of service Follow-up Visit (Physician/HR PAYROLL COORDINATOR ) Arrival Mode Ambulatory Patient Identification Verified (Name & Yes ) Patient Requires Transmission-Based No Precautions Height and Weight Body Mass Index (BMI) 34.0 BMI Classification Obese Vital Signs Temperature (97.8 F-99.1 F) 97.0 F L Temperature Source Temporal Pulse Rate (60-100) 86 Pulse Location Monitor Respiratory Rate (12-18) 18 Respiratory rate source Observation Blood Pressure (90/60-120/80) 158/75 H Blood Pressure Mean (mm Hg) 102 Source Monitor Position Semi-Fowlers Blood Pressure Location Left Arm History Since Last Visit- (Skip if this is Patient's initial visit) Have you changed medications since your No last visit? Any new allergies or adverse reactions No Had a fall/change in ADL's that may No increase risk of falls Signs or symptoms of abuse and/or No neglect since last visit Have you been in the hospital since your No last visit? Has dressing in place as prescribed Yes Has compression in place as prescribed Yes Has offloadiing in place as prescribed N/A Experienced any changes in pain level or No management Left Footwear Regular Shoe Right Footwear Regular Shoe Pain Scale: 0-10 Numeric Is Patient Pain Free? Yes - Nurse 1 - General Ulcer Measurement Start: 06/30/22 14:55 Freq: Status: Active Protocol: Activity Type Activity Date Activity User E-sign Co-sign Detail Recorded Client Recorded Date Recorded By Document 06/30/22 14:55 [id number] 06/30/22 14:58 06/30/22 14:55 Wound Center Nurse 1 #2 R LE -Combined with other wound No -Current Size (cm) - Length 0.1 -Current Size (cm) - Width 0.1 -Current Size (cm) - Depth 0.1 -Total Square Cm 0.01 -Photo Taken Yes -Epithelialization Large 67-100% -Tunneling No -Undermining/Tunneling No -Circular Undermining No -Exudate Amt None Present -Wound Margin Flat & Intact -Granulation Amt None Present (0 %) -Slough/Fibrin Yes -Necrotic Tissue Type Adherent Slough -Structure Exposed N/A -Texture (Alethea-wound Skin Appearance) Assessed, Localized Edema -Moisture (Alethea-wound Skin Appearance) Assessed,Dry/ Scaly -Color (Alethea-wound Skin Appearance) Assessed -Temperature (Alethea-wound Skin No Abnormality Appearance) (Pt Warm) -Tenderness on Palpation (Alethea-wound No Skin Appearance) -Ulcer Cleansing Rinsed/ Irrigated with Saline -Foul Odor after Cleansing No -Anesthetic Used 4% Lidocaine Solution Lower Limb Edema Present Yes WC - Nurse 2 - General Ulcer CM Notes Start: 06/30/22 14:55 Freq: Status: Active Protocol: Activity Type Activity Date Activity User E-sign Co-sign Detail Recorded Client Recorded Date Recorded By Document 06/30/22 15:02 NAWAF [id number] 06/30/22 15:08 JF 06/30/22 15:02 Wound Center Nurse 2 #2 R LE -Time 15:07 -Correct Patient Yes -Correct Side, Site, Position Yes -Correct Procedure Yes -Procedure Performed Yes -Type of Procedure Debridement -Clinical Debridement Subcutaneous -Tissue Removed Subcutaneous -Post Debridement (cm) - Length 0.2 -Post Debridement (cm) - Width 0.3 -Post Debridement (cm) - Depth 0.1 -Total Square (Post) (cm) 0.06 -Area of Debridement (cm) - Length 0.2 -Area of Debridement (cm) - Width 0.3 -Total Square (Area) (cm) 0.06 -Tunneling No -Undermining/Tunneling No -Circular Undermining No -Wound/Ulcer Outcome Not Healed -Ulcer Cleansing Rinsed/ Irrigated with Saline -Foul Odor after Cleansing No -Bioengineered Tissue Yes -Type of Bioengineered Tissue Epifix 18mm Disc -Expiration Date 03/24/27 -Product Lot Number [id number] -Percent Used 100 -Lot number of Saline Used [id number] -Bleeding Controlled with Pressure -Treatment Response Procedure Tolerated Well -Offloading No -Debridement - Subq, 1st 20sq cm No -Apply Skin Sub - 1st 25 sq cm - Legs 1 -Epifix 18mm Disc 3 Pain Scale: 0-10 Numeric Is Patient Pain Free? Yes WC - Nurse 3 - General Ulcer D/C NN Start: 06/30/22 14:55 Freq: Status: Active Protocol: Activity Type Activity Date Activity User E-sign Co-sign Detail Recorded Client Recorded Date Recorded By Document 06/30/22 15:18 RB [id number] 06/30/22 15:19 06/30/22 15:18 Wound Care Nurse 3 #2 R LE -Primary Dressing Covered/Secured with Dry Gauze,Dry Gauze & Roll Gauze,Secured with Tape Right -Tubular Bandage Single Layer -Size of Tubigrip Used Size E -Size E ($) 1 Treatment Response Procedure Tolerated Well Pain Scale: 0-10 Numeric Is Patient Pain Free? Yes WC - Visit Discharge Discharge Condition Stable Ambulatory Status Ambulatory Transportation Private Auto Clinical Summary of Care Provided Yes Assessment/Plan Assessment/Plan (1) Chronic ulcer of right leg with fat layer exposed: CODE(S): L97.912 - Non-pressure chronic ulcer of unspecified part of right lower leg with fat layer exposed (2) Localized edema: CODE(S): R60.0 - Localized edema PLAN: Plan I reviewed and discussed her case today.? Debridement was performed today as noted in the clinical panel to the ulcer site. Dressing: To keep secondary dressing that was applied over the epi fix advanced wound healing product intact clean and dry. It is okay to change a secondary dressing if she has strikethrough once a week. Wash: Antibacterial soap and water to the periwound site and to avoid getting the wound or advance wound product wet.? To avoid soaking Tissue growth optimization: Prior authorization for epifix was obtained and the benefits indications, and anticipated management were reviewed today. This is medically necessary. She has demonstrated delayed healing already and has completed standard wound care program so far. This was applied according standard protocol and was further secured in place with a wound veil and Steri- Strips. Verbal consent was obtained and she tolerated this well. A secondary dressing was applied and she will keep this clean, dry, and intact. Offload: To reduce pressure and ulcer by application of compression garment Vascular: Noninvasive lower extremity arterial studies with ordered to confirm adequate perfusion. She was encouraged to get this scheduled sooner if available; she will need to reschedule from June 19, 2022. Edema: Double layer Tubigrip applied.?? Elevate limbs at rest.? Venous Doppler with reflux evaluation was ordered to assess for venous insufficiency Infection: It is noted she was previously treated for cellulitis in her leg and she completed several course of antibiotics.? To monitor for development of local or systemic illness. I do not recommend additional antibiotics at this time. Diagnostic data: Ordered x-ray of limb (right lower extremity).? Tibia-fibula x- ray right lower extremity was reviewed with soft tissue discontinuity noted to anterior mid lower leg without soft tissue emphysema and deeper compartments, fracture, dislocation, periosteal reaction to adjacent tibia.? 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 Pain: This is controlled at this time Host factors: Her comorbidities are noted.? I also recommend nutritional supplementation optimize healing, Radu. Note: [employer] speech recognition behaviour support teacher software was used to create portions of this document. Sound-alike and misspelled words, as well as other behaviour support teacher errors may be contained in the documentation. I answered all the patient's questions.? To return to the wound healing center in 1 week or call sooner if the patient has any questions or concerns.
== END 2022-07-23 23:59 | disposition home or self-care (01) ==
LOC: WC 14:48
PROVIDERS: PCP Physician Assistant Medical; Visit Provider Nurse Practitioner Family
DX: L97.912 Non-pressure chronic ulcer of unspecified part of right lower leg with fat layer exposed (principal); R60.0 Localized edema
CPT/HCPCS: 15271; Q4186

== ENCOUNTER 2023-07-19 14:36 | Inpatient (IN) | payer MEDICARE, SELFPAY ==
[2023-07-19] VITALS (7 sets, daily range): BP systolic 124–167; BP diastolic 40–66; PULSE 58–71; RESP 16–24; TEMP 35.8–36.5; O2SAT 92–99; BMI 37.0
--- NOTE | 2023-07-19 14:54 | EDS_ITS ---
HPI HPI - Fall History of Present Illness Chief Complaint: Fall Informant: patient Narrative Narrative: Patient fell while try to get out of her wheelchair injuring her right lower leg/ankle area. She states it got tied up in the wheelchair somehow. She denies any other injury. She sustained a large laceration, it was bleeding significantly, she had recently discontinued her anticoagulants in order to get some low back injections from a pain management physician. Per EMS, it was bleeding so heavily that they applied a tourniquet. This helped control the bleeding it is still oozing. Patient complains of severe pain in this area. As of my evaluation the tourniquet has been applied for just over 20 minutes. [facility] Medical History Atrial fibrillation Breast cancer Home Medications acetaminophen 325 mg capsule (Tylenol) mg PO Q4H PRN Pain 05/05/22 [History Last Taken Unknown] alprazolam 0.25 mg tablet (Xanax) 0.5 mg PO QHS PRN Anxiety 05/05/22 [History Last Taken Unknown] cholecalciferol (vitamin D3) 125 mcg (5,000 unit) tablet (Vitamin D3) 125 mcg PO QWEEK 05/05/22 [History Last Taken Unknown] gabapentin 300 mg capsule 300 mg PO TID 05/05/22 [History Last Taken Unknown] levothyroxine 75 mcg tablet 75 mcg PO MOTUWETHFRSA 05/05/22 [History Last Taken Unknown] multivitamin 1 tab PO DAILY 05/05/22 [History Last Taken Unknown] omeprazole 40 mg capsule,delayed release 40 mg PO DAILY 05/05/22 [History Last Taken Unknown] triamterene 37.5 mg-hydrochlorothiazide 25 mg capsule 1 cap PO DAILY 05/05/22 [History Last Taken Unknown] warfarin 5 mg tablet 5 mg PO DAILY 05/05/22 [History Last Taken Unknown] amitriptyline 25 mg tablet 25 mg PO QHS PRN 07/18/23 [History Last Taken Unknown] furosemide 20 mg tablet (Lasix) 60 mg PO DAILY 07/18/23 [History Last Taken Unknown] meclizine 12.5 mg tablet 12.5 mg PO BID #60 tabs 07/18/23 [Rx Last Taken Unknown] ondansetron 4 mg disintegrating tablet 4 mg PO Q8H PRN 07/18/23 [History Last Taken Unknown] potassium chloride 20 mEq tablet,extended release 20 meq PO BID 07/18/23 [History Last Taken Unknown] propafenone 225 mg tablet 225 mg PO TID 07/18/23 [History Last Taken Unknown] Allergy/AdvReac Type Severity Reaction Status Date / Time Bbmynsk-NBL-KjT Reductase AdvReac Severe Muscle Pain Verified 07/18/23 09:56 Inhibitor tramadol [From Ultram] AdvReac Severe Other Verified 07/18/23 09:56 Surgical History (Updated 07/19/23 @ 14:46 by Deniz Jonas) S/P bilateral mastectomy Status post bilateral knee 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 Social History Smoking Status: Never smoker ROS ROS ED Constitutional Constitutional ED: Denies chills or fever(s) Musculoskeletal Musculoskeletal: Reports extremity pain; Denies neck pain Integumentary Reports laceration; Denies Abrasions or rash Neurologic Neurologic: Denies paresthesias or weakness EXAM Physical Exam Const Vital Signs: 07/19/23 14:38 Temperature 97.7 F L Temperature Source Oral Pulse Rate 71 Respiratory Rate 18 Blood Pressure 167/40 H Blood Pressure Mean 82 Pulse Ox 97 Oxygen Delivery Method Room Air Positive well nourished, well developed and obese General Appearance ED: well developed and NAD Nutritional Appearance: obese Neck full ROM and supple GI non-tender and non-distended Back/Spine normal to inspection Back/Spine Narrative: No midline spinal tenderness or signs of back trauma Extremity Extremity Narrative: Right lower extremity: Tourniquet applied mid calf, there is cyanosis distal to this and a pulse is not palpable. There is a large open acute wound/laceration to the ankle level, there is no bone or anything other than subcutaneous fat ex posed, it is oozing blood with a tourniquet applied, slowly. This diffuse area is tender. No obvious deformity. No evidence of trauma to the foot which is nontender. Neuro oriented x3, no focal motor deficits and no sensory deficits noted Sensorium / Orientation: alert Psych mental status grossly normal and thought process normal Skin Skin Narrative: Approximately 12 cm laceration to the right ankle more anteriorly and medially. Appears relatively linear and without obvious gross contamination Rashes: no rashes MDM MDM MDM Narrative Medical decision making narrative: Three-view x-ray series was obtained stat of the right ankle, shows a trimalleolar fracture dislocation. This is open with a large wound. I called orthopedics discussed with them, they were busy at the time dealing with another open fracture. I released the tourniquet before Ortho saw the patient in order to restore blood flow distally, I did this at 1535, and at that time the tourniquet had been on for a little over an hour, less than 75 min. Radiography Diagnostic Testing: Clinical Impression(s) from Imaging Studies Ankle X-Ray 07/19/23 15:10 IMPRESSION: Distal fibular fracture with posterior dislocation of the distal tibial talar joint. Soft tissue swelling. Electronically Signed: Jose Madrigal MD at 15:29 EDT , Management Discussion w/another healthcare provider: Surgeon/President (enrique Garcia) Discharge Plan Triage Chief Complaint: Fall ED Provider: Donald Staley Dx/Rx/DC Orders Clinical Impression: Open trimalleolar fracture of right ankle Prescriptions: No Action potassium chloride 20 mEq tablet extended release 20 meq PO BID furosemide [Lasix] 20 mg tablet 60 mg PO DAILY ondansetron 4 mg tablet,disintegrating 4 mg PO Q8H PRN meclizine 12.5 mg tablet 12.5 mg PO BID Qty: 60 5RF multivitamin Tablet 1 tab PO DAILY omeprazole 40 mg Capsule,Delayed Release(Dr/Ec) 40 mg PO DAILY triamterene-hydrochlorothiazid 37.5-25 mg Capsule 1 cap PO DAILY levothyroxine 75 mcg Tablet 75 mcg PO MOTUWETHFRSA alprazolam [Xanax] 0.25 mg Tablet 0.5 mg PO QHS PRN (Reason: Anxiety) warfarin [Coumadin] 5 mg Tablet 5 mg PO DAILY gabapentin 300 mg Capsule 300 mg PO TID acetaminophen [Tylenol] 325 mg Capsule PO Q4H PRN (Reason: Pain) cholecalciferol (vitamin D3) [Vitamin D3] 125 mcg (5,000 unit) Tablet 125 mcg PO QWEEK amitriptyline 25 mg tablet 25 mg PO QHS PRN propafenone 225 mg tablet 225 mg PO TID Primary Care Provider: Rosanne Velazquez Referrals: Rosanne Velazquez, XANDER [Primary Care Provider] - Disposition Disposition: Acute Care Hospital [facility]
[2023-07-19] MEDS: Ondansetron 4 MG/2 ML Vial IV (15:01)
[2023-07-19] MEDS: Morphine 4 MG/ML Syringe IV ×3 (15:01→19:23)
--- NOTE | 2023-07-19 15:10 | RAD_ITS ---
STUDY: X-RAY - RIGHT ANKLE REASON FOR EXAM: Female, 82 years old. Pain following injury. TECHNIQUE: 3 view(s) of the ankle. COMPARISON: None. FINDINGS: Transverse fracture through the distal fibular metaphysis. Normal medial and lateral malleoli. Posterior dislocation of the distal tibial talar joint. Plantar spur. The visualized subtalar, talonavicular, calcaneocuboid and tarsal articulations are normal. Soft tissue swelling. RAD/Ankle 2 Views IMPRESSION: Distal fibular fracture with posterior dislocation of the distal tibial talar joint. Soft tissue swelling. Electronically Signed: Jose Madrigal MD at 15:29 EDT ,
--- NOTE | 2023-07-19 15:48 | RAD_ITS ---
INDICATION: preop clearance EXAMINATION/TECHNIQUE: X-RAY - XR Chest 1 View COMPARISON: FINDINGS: LINES/DEVICES: None. LUNGS: No consolidation, edema or effusion. Elevation of the right hemidiaphragm. No pneumothorax. MEDIASTINUM AND CARDIOVASCULAR STRUCTURES: Cardiac silhouette not enlarged. Central airways and mediastinal contour are unremarkable. BONES AND SOFT TISSUES: There is a right shoulder prosthesis. Vertebroplasty of multiple lower thoracic vertebral levels. RAD/Chest 1 View (Portable) IMPRESSION: No radiographic evidence of acute cardiopulmonary disease. Electronically Signed: Michael Myles DO at 16:47 EDT Reading Location ID and State: [facility] / [place] Tel [phone], Service support ,
[2023-07-19 16:04] LABS: Absolute Lymphocyte Count 1.08 X10^3/uL (0.83-4.51); Absolute Neutrophil Count 1.8 X10^3/uL (2.0-7.7); Basophil# 0.05 X10^3/uL; Basophil% 1.5 % (0-1); Eosinophil# 0.09 X10^3/uL; Eosinophils% 2.6 % (0-5); Hematocrit 42.1 % (37-47); Hemoglobin 14.1 g/dL (12.0-15.0); Lymphocyte # 1.08 X10^3/ul (0.83-4.51); Lymphocyte % 31.5 % (19-41); Mean Corp Hgb Conc 33.5 g/dL (32-36); Mean Corpuscular Hgb 30.1 pg (27.0-32.0); Mean Corpuscular Volume 89.8 fL (81-99); Mean Platelet Vol. 11.5 fl (6.2-12.0); Monocyte# 0.41 X10^3/uL; NRBC Flagged by Analyzer 0 % (0-5); Neutrophil % 52.4 % (47-70); Platelet Count 189 K/mm3 (150-450); RBC Distribution Width CV 12.4 % (11.6-14.6); RBC Distribution Width SD 40.8 fl (35.1-43.9); Red Blood Count 4.69 M/mm3 (4.2-5.4); White Blood Count 3.4 K/mm3 (4.4-11.0)
[2023-07-19] MEDS: Etomidate 20 MG/10 ML Vial 10 MG IV (16:16)
[2023-07-19 16:17] LABS: Anion Gap 6 (5-15); BUN 16 mg/dL (7-18); BUN/Creat Ratio 17.6 RATIO (10-20); Calcium,Total 8.9 mg/dL (8.5-10.1); Chloride 94 mmol/L (98-107); Creatinine, Serum 0.91 mg/dL (0.55-1.02); EST Glomerular Filtration Rate 63 mL/min (>60); Est Glom Filt Rate - Afr Amer 76 mL/min (>60); Estimated Creatinine Clearance 35.35 ml/min; Glucose 162 mg/dL (74-106); Potassium 3.1 mmol/L (3.5-5.1); Sodium Level 133 mmol/L (136-145)
--- NOTE | 2023-07-19 16:25 | RAD_ITS ---
INDICATION: postreduction -- portable EXAMINATION/TECHNIQUE: X-RAY - RIGHT XR Ankle 2 Views COMPARISON: July 19, 2023 at 15:02 hours FINDINGS: Post reduction of the right ankle fracture dislocation with placement of a cast . There is improved alignment and approximation of the bony fragments. There is persistent widening at the medial talotibial articulation. RAD/Ankle 2 Views IMPRESSION: Status post reduction and cast placement of ankle fracture dislocation. Electronically Signed: Michael Myles DO at 16:45 EDT ,
[2023-07-19] MEDS: Diphth,Pertuss(Acell),Tet Vac 0.5 ML Vial IM (16:42)
--- NOTE | 2023-07-19 16:42 | HP.PCM.HOS_ITS ---
HPI - General General Date of Admission: 07/19/23 Date of Service: 07/19/23 Chief Complaint: Pain status post mechanical fall HPI Narrative RACHEL DUONG, is a 82 F who presented to the emergency department at [facility] on 07/19/2023 after mechanical fall and immediate right ankle pain. Patient was leaving Dr. Arriaga's office after having injection in her lumbar spine and getting into her car when she suffered a mech anical fall. She does have a history of poor balance and follows with neurology as an outpatient. Rapid response was called and she was brought by squad to the emergency department as this occurred outside hospital grounds. Her fracture was an open fracture and x-rays revealed a distal fibular fracture with posterior dislocation of the distal tibia and talar joint and soft tissue swelling. The fracture was reduced in the emergency department by orthopedic surgery in the emergency department physician with temporary cast placement. Dr. Garcia evaluated the patient intends on taking her for surgery either tonight or tomorrow morning depending on when OR time can be provided for him. She does have a history of atrial fibrillation and takes Coumadin however she has not been on it for 5 to 6 days due to pending lumbar injections. Vital signs on presentation show a temperature of 97.7, heart rate 71, blood pressure 167/40, respiratory rate 18 and oxygen saturations are 97% on room air. Her CBC is overall unremarkable. Her chemistry panel shows mild hyponatremia sodium of 133, hypokalemia with a potassium of 3.1, and elevated bicarb at 33 with normal renal function. Her glucose was 162. EKG is pending but preoperative chest x-ray was overall unremarkable. [facility] Medical History (Updated 07/19/23 @ 17:[address] Shala Chung, ) Adrenal nodule Atrial fibrillation Breast cancer Chronic ulcer of right leg with fat layer exposed Tinea unguium Home Medications cholecalciferol (vitamin D3) 125 mcg (5,000 unit) tablet (Vitamin D3) 125 mcg PO QWEEK 05/05/22 [History Last Taken Unknown] gabapentin 300 mg capsule 300 mg PO TID NEUROPATHY 05/05/22 [History Last Taken Unknown] levothyroxine 75 mcg tablet 75 mcg PO MOTUWETHFRSA THYROID 05/05/22 [History Last Taken Unknown] multivitamin 1 tab PO DAILY HEALTH MAINTENANCE 07/13/22 [History Last Taken Unknown] omeprazole 40 mg capsule,delayed release 40 mg PO DAILY ACID REFLUX 05/05/22 [History Last Taken Unknown] triamterene 37.5 mg-hydrochlorothiazide 25 mg capsule 1 cap PO DAILY BLOOD PRESSURE 05/05/22 [History Last Taken Unknown] warfarin 5 mg tablet 5 mg PO DAILY BLOOD THINNER 05/05/22 [History Last Taken Unknown] amitriptyline 25 mg tablet 25 mg PO QHS PRN DEPRESSION 07/18/23 [History Last Taken Unknown] furosemide 20 mg tablet (Lasix) 60 mg PO DAILY FLUID 07/18/23 [History Last Taken Unknown] meclizine 12.5 mg tablet 12.5 mg PO BID #60 tabs 07/18/23 [Rx Last Taken Unknown] ondansetron 4 mg disintegrating tablet 4 mg PO Q8H PRN NAUSEA/VOMITING 07/18/23 [History Last Taken Unknown] propafenone 225 mg tablet 225 mg PO TID AFIB 07/18/23 [History Last Taken Unknown] alprazolam 0.5 mg tablet 0.5 mg PO DAILY PRN ANXIETY 07/19/23 [History Last Taken Unknown] oxycodone-acetaminophen 5 mg-325 mg tablet 0.5 tab PO BID PAIN 07/19/23 [History Last Taken Unknown] potassium chloride 20 mEq tablet,extended release(part/cryst) 20 meq PO BID SUPPLEMENT 07/19/23 [History Last Taken Unknown] trazodone 50 mg tablet 50 mg PO DAILY DEPRESSION 07/19/23 [History Last Taken Unknown] Allergy/AdvReac Type Severity Reaction Status Date / Time [id number] Reductase AdvReac Severe Muscle Pain Verified 07/18/23 09:56 Inhibitor tramadol [From Ultram] AdvReac Severe Other Verified 07/18/23 09:56 Family History Other Hypertension Surgical History S/P bilateral mastectomy Status post bilateral knee 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 Social History Smoking Status: Never smoker alcohol intake: never substance use type: does not use ROS Constitutional Constitutional: Denies anorexia, change in weight, chills, fatigue, fever(s), malaise, night sweats, weakness or other Eyes Eyes: Denies blurry vision, change in eye color, change in vision, discharge from eye(s), double vision, erythema, eye pain, loss of vision or other ENT HEENT: Denies abnormal hearing, dysphagia, ear pain, epistaxis, headache(s), hearing loss, nasal congestion, nasal discharge, post nasal drip, sinus pressure, sore throat or other Cardiovascular Cardiovascular: Denies chest pain, claudication, dyspnea on exertion, edema, lightheadedness, orthopnea, palpitations, paroxysmal nocturnal dyspnea, rapid heart rate, syncope or other Respiratory/Chest Respiratory/Chest: Denies cough, dyspnea, excessive phlegm production, hemoptysis, productive cough, shortness of breath at rest, shortness of breath with exertion, wheezing or other Gastrointestinal Gastrointestinal: Denies abdominal pain, coffee ground emesis, constipation, diarrhea, dyspepsia, hematemesis, hematochezia, loose stools, melena, nausea, vomiting or other Genitourinary Genitourinary: Denies burning urination, difficulty urinating, dysuria, hematuria, nocturia, urinary frequency, urinary hesitancy, urinary incontinence, urinary urgency or other Musculoskeletal Musculoskeletal: Reports back pain, joint pain and joint swelling Neurologic Neurologic: Reports abnormal gait and disequilibrium; Denies abnormal speech, confusion, dizziness, focal weakness, headache(s), numbness, paresthesias, seizure-like activity, seizures, syncope, tingling, tremor(s) or other Psychiatric Psychiatric: Reports anxiety and depression; Denies homicidal ideation, suicidal ideation or other Endocrine Endocrinology: Denies change in body appearance, cold intolerance, excessive sweating, heat intolerance, polydipsia, polyuria or other Hematologic/Lymphatic Hematologic/Lymphatic: Denies anemia, easy bleeding, easy bruising, lymphadenopathy or other Allergic/Immunologic Allergic/Immunologic: Denies rhinitis, hives, eczemia, asthma or other Vital Signs Vital Signs Vital Signs: 07/19/23 14:38 07/19/23 16:14 07/19/23 16:18 Temperature 97.7 F L Temperature Source Oral Pulse Rate 71 58 L Pulse Rate [1 (Initial Baseline)] 66 Pulse Rate [2] 68 Respiratory Rate 18 17 Respiratory Rate [1 (Initial Baseline)] 16 Respiratory Rate [2] 24 H Blood Pressure 167/40 H 124/46 H Blood Pressure [1 (Initial Baseline)] 124/46 H Blood Pressure [2] 167/60 H Blood Pressure Mean 82 Pulse Ox 97 98 Oxygen Delivery Method Room Air Nasal Cannula Oxygen Delivery Method [1 (Initial Baseline)] Nasal Cannula Oxygen Delivery Method [2] Nasal Cannula Oxygen Flow Rate (L/min) 2 Oxygen Flow Rate (L/min) [1 (Initial Baseline)] 2 Oxygen Flow Rate (L/min) [2] 4 07/19/23 16:30 07/19/23 16:35 07/19/23 16:40 Temperature Temperature Source Pulse Rate Pulse Rate [1 (Initial Baseline)] Pulse Rate [2] Respiratory Rate Respiratory Rate [1 (Initial Baseline)] Respiratory Rate [2] Blood Pressure Blood Pressure [1 (Initial Baseline)] Blood Pressure [2] Blood Pressure Mean Pulse Ox Oxygen Delivery Method Nasal Cannula Room Air Room Air Oxygen Delivery Method [1 (Initial Baseline)] Oxygen Delivery Method [2] Oxygen Flow Rate (L/min) 2 Oxygen Flow Rate (L/min) [1 (Initial Baseline)] Oxygen Flow Rate (L/min) [2] Weight Weight: 89 kg Body Mass Index (BMI) 37.0 Physical Exam Const alert, oriented x3, no apparent distress and well nourished; Negative for average body habitus Constitutional Narrative: Obese, elderly, white female, sitting up in bed, appears comfortable currently, family at bedside, nontoxic General Appearance: cooperative HEENT normocephalic, head/scalp atraumatic, hearing grossly normal bilaterally and moist oral mucous membranes HEENT Narrative: Mallampati 3, dentures in place, no thrush Resp normal respiratory effort, no retractions, no use of accessory muscles and clear to auscultation bilaterally Auscultation: Negative for rales, rhonchi or wheezes Cardio regular rate, regular rhythm, S1 normal heart sound, S2 normal heart sound, no murmurs, no rub, no gallops and no clicks GI normal to inspection, nondistended, normoactive bowel sounds, soft to palpation and non-tender Extremity Extremity Narrative: Left LE Edema-appears to be chronic with left lower extremity changes consistent with venous stasis, patient states it is present on the right as well however cast is currently in place, cap refill is 2+ bilateral lower extremities, pedal pulses on the left were 2+ Skin skin turgor normal, no jaundice, no petechiae and no mottling Neuro oriented x3, moves all extremities and no focal motor deficits Neuro Narrative: Difficulty moving right lower extremity due to pain and unable to move right a nkle due to fracture but otherwise symmetrical movement Speech: speech normal Psych affect normal Psych Narrative: Pleasant, appropriately, eye contact is good Results Lab / Micro Data 07/19/23 15:00 07/19/23 15:00 Labs: Laboratory Results - last 24 hr 07/19/23 15:00: WBC 3.4 L, RBC 4.69, Hgb 14.1, Hct 42.1, MCV 89.8, MCH 30.1, MCHC 33.5, RDW Std Deviation 40.8, RDW Coeff of Neeru 12.4, Plt Count 189, MPV 11.5, Immature Gran % (Auto) 0.000, Neut % (Auto) 52.4, Lymph % (Auto) 31.5, Dundy % (Auto) 12.0 H, Eos % (Auto) 2.6, Baso % (Auto) 1.5 H, Absolute Neuts (auto) 1.8 L, Absolute Lymphs (auto) 1.08, Nucleated RBC % 0, Sodium 133 L, Potassium 3.1 L, Chloride 94 L, Carbon Dioxide 33.0 H, Anion Gap 6, BUN 16, Creatinine 0.91, Estim Creat Clear Calc 35.35, Est GFR (MDRD) Af Amer 76, Est GFR (MDRD) Non-Af 63, BUN/Creatinine Ratio 17.6, Glucose 162 H, Calcium 8.9 Radiology Impression Ankle X-Ray 07/19/23 15:10 IMPRESSION: Distal fibular fracture with posterior dislocation of the distal tibial talar joint. Soft tissue swelling. Electronically Signed: Jose Madrigal MD at 15:29 EDT , Assessment & Plan Assessment/Plan (1) Hyperglycemia: (2) Hypokalemia: (3) Open trimalleolar fracture of right ankle: PLAN: Plan Open trimalleolar fracture of the right ankle -Plan is for OR tomorrow -Check INR -Chest x-ray unremarkable -Preop EKG is pending -As needed pain medication with scheduled Tylenol -Bowel regimen ordered -Check vitamin D level -PT/OT consultation for after surgery -Case management/social work consultation as I do suspect patient will need placement at discharge -Consultation to Dr. Garcia Hypokalemia -Patient was given 60 mill COVID p.o. potassium -Check a.m. magnesium level -Check a.m. BMP -We will continue home oral potassium supplementation that she is on at baseline Hyperglycemia -Check hemoglobin A1c Adrenal nodule -Patient states she was recently diagnosed with adrenal nodules and work-up is in progress -Multiple labs have been drawn recently and are pending History of paroxysmal atrial fibrillation -Continue propafenone -INR is pending however patient has been off Coumadin for 5 days -continue to hold home Coumadin and consider transition to Eliquis at discharge given ease of administration and there does not appear to be any contraindications to this -Patient states she has not had any atrial fibrillation about 40 years and if she is symptomatic when she does have A-fib GERD -Continue home PPI Hypothyroidism -Continue home levothyroxine -Patient stated she was just started on this recently Chronic low back pain -Continue outpatient management with pain management -As needed pain medication as noted above Vitamin D deficiency -We will check vitamin D level with fracture -Continue home cholecalciferol supplementation Depression/anxiety -Continue home as needed Xanax however I would advise this to be discontinued as this does increase her risk for falling however it should not be stopped abruptly -We will reduce dose by 50% and recommend weaning -Continue home low-dose trazodone DVT prophylaxis -SCDs for now -Hold chemoprophylaxis until after surgery CODE STATUS -DNR CCA with no intubation Charges/Coding Visit Charges Inpatient E&M: 14386 Init Hosp L2
[2023-07-19] MEDS: Cefazolin 1 GM/50 ML BAG IV (16:54)
--- NOTE | 2023-07-19 17:03 | ED.RN ---
1535: Tourniquet released per Dr. Staley.
[2023-07-19 17:24] LABS: International Normalized Ratio 1.1; Prothrombin Time (Protime)PT. 13.7 SECONDS (11.7-14.9)
--- NOTE | 2023-07-19 18:18 | NURSING ---
glasses in purse
--- NOTE | 2023-07-19 18:26 | ED.VIS.FALL ---
HPI HPI - Fall History of Present Illness Chief Complaint: Fall Informant: patient, family and EMS Narrative Narrative: Patient sustained a fall and injury to her right ankle as she was getting out of her wheelchair and somehow the wheelchair moved and her ankle/foot got caught. No other injuries. There is significant prehospital bleeding from the wound that her right ankle, where she is having severe pain, and a prehospital tourniquet was placed to the right mid lower leg and had been in place about 20 minutes prior to evaluation. Patient is anticoagulated with warfarin due to chronic A-fib, she states it is paroxysmal and she has not felt herself go into atrial fibrillation for 40 years, and she discontinued her warfarin 1 week ago in preparation for low back injections by her pain management doctor for chronic sciatica. [facility] Medical History Adrenal nodule Atrial fibrillation Breast cancer Chronic ulcer of right leg with fat layer exposed Tinea unguium Home Medications cholecalciferol (vitamin D3) 125 mcg (5,000 unit) tablet (Vitamin D3) 125 mcg PO WE SUPPLEMENT 05/05/22 [History Last Taken 07/13/23] gabapentin 300 mg capsule 600 mg PO BID NEUROPATHY 05/05/22 [History Last Taken 07/18/23] levothyroxine 75 mcg tablet 75 mcg PO SUMOTUWETHFR THYROID 05/05/22 [History Last Taken 07/18/23] multivitamin 1 tab PO DAILY HEALTH MAINTENANCE 05/05/22 [History Last Taken 07/18/23] omeprazole 40 mg capsule,delayed release 40 mg PO DAILY ACID REFLUX 05/05/22 [History Last Taken 07/18/23] triamterene 37.5 mg-hydrochlorothiazide 25 mg capsule 1 cap PO DAILY BLOOD PRESSURE 05/05/22 [History Last Taken 07/18/23] warfarin 5 mg tablet 5 mg PO DAILY BLOOD THINNER 05/05/22 [History Last Taken 07/18/23] amitriptyline 25 mg tablet 25 mg PO QHS PRN DEPRESSION 07/18/23 [History Last Taken 07/18/23] furosemide 20 mg tablet (Lasix) 60 mg PO DAILY FLUID 07/18/23 [History Last Taken 07/18/23] meclizine 12.5 mg tablet 12.5 mg PO BID DIZZINESS #60 tabs 07/18/23 [Rx Last Taken Unknown] ondansetron 4 mg disintegrating tablet 4 mg PO Q8H PRN NAUSEA/VOMITING 07/18/23 [History Last Taken Unknown] propafenone 225 mg tablet 225 mg PO TID AFIB 07/18/23 [History Last Taken 07/19/23] alprazolam 0.5 mg tablet 0.5 mg PO DAILY PRN ANXIETY 07/19/23 [History Last Taken 07/18/23] levothyroxine 75 mcg tablet 37.5 mcg PO SA THYROID 07/19/23 [History Last Taken 07/16/23] oxycodone-acetaminophen 5 mg-325 mg tablet 0.5 tab PO BID PAIN 07/19/23 [History Last Taken 07/18/23] potassium chloride 20 mEq tablet,extended release(part/cryst) 20 meq PO BID SUPPLEMENT 07/19/23 [History Last Taken 07/19/23] trazodone 50 mg tablet 50 mg PO DAILY DEPRESSION 07/19/23 [History Last Taken 07/18/23] vitamin A 2,500 unit-vit C 100 mg-biotin 2,500 [id number] capsule ([id number]-Ykjx-Ulxq (vit A,W-vhgwsj-Sj-Cu)) 1 cap PO DAILY SUPPLEMENT 07/19/23 [History Last Taken 07/18/23] Allergy/AdvReac Type Severity Reaction Status Date / Time [id number] Reductase AdvReac Severe Muscle Pain Verified 07/18/23 09:56 Inhibitor tramadol [From Ultram] AdvReac Severe Other Verified 07/18/23 09:56 Family History Other Hypertension Surgical History S/P bilateral mastectomy Status post bilateral knee 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 Social History Smoking Status: Never smoker alcohol intake: never substance use type: does not use ROS ROS ED Constitutional Constitutional ED: Denies chills or fever(s) Eyes Eyes: Denies change in vision or diplopia ENT ENT ED: Denies rhinorrhea or sore throat Cardiovascular Cardiovascular: Denies chest pain or palpitations Respiratory/Chest Respiratory/Chest: Denies cough or dyspnea Gastrointestinal Gastrointestinal: Denies abdominal pain, diarrhea, nausea or vomiting Genitourinary Genitourinary ED: Denies dysuria or hematuria Musculoskeletal Musculoskeletal: Reports back pain, extremity pain and other Details: Low back pain is chronic and unchanged, no acute back pain from injury/fall ; Denies neck pain Integumentary Reports as per HPI and laceration; Denies abscess or rash Neurologic Neurologic: Denies headache(s), paresthesias or weakness Psychiatric Psychiatric: Denies anxiety or suicidal thoughts EXAM Physical Exam Const Vital Signs: 07/19/23 14:38 07/19/23 16:14 07/19/23 16:18 Temperature 97.7 F L Temperature Source Oral Pulse Rate 71 58 L Pulse Rate [1 (Initial Baseline)] 66 Pulse Rate [2] 68 Respiratory Rate 18 17 Respiratory Rate [1 (Initial Baseline)] 16 Respiratory Rate [2] 24 H Blood Pressure 167/40 H 124/46 H Blood Pressure [1 (Initial Baseline)] 124/46 H Blood Pressure [2] 167/60 H Blood Pressure Mean 82 Pulse Ox 97 98 Oxygen Delivery Method Room Air Nasal Cannula Oxygen Delivery Method [1 (Initial Baseline)] Nasal Cannula Oxygen Delivery Method [2] Nasal Cannula Oxygen Flow Rate (L/min) 2 Oxygen Flow Rate (L/min) [1 (Initial Baseline)] 2 Oxygen Flow Rate (L/min) [2] 4 07/19/23 16:30 07/19/23 16:35 07/19/23 16:40 Temperature Temperature Source Pulse Rate Pulse Rate [1 (Initial Baseline)] Pulse Rate [2] Respiratory Rate Respiratory Rate [1 (Initial Baseline)] Respiratory Rate [2] Blood Pressure Blood Pressure [1 (Initial Baseline)] Blood Pressure [2] Blood Pressure Mean Pulse Ox Oxygen Delivery Method Nasal Cannula Room Air Room Air Oxygen Delivery Method [1 (Initial Baseline)] Oxygen Delivery Method [2] Oxygen Flow Rate (L/min) 2 Oxygen Flow Rate (L/min) [1 (Initial Baseline)] Oxygen Flow Rate (L/min) [2] 07/19/23 16:48 Temperature 96.5 F L Temperature Source Temporal Pulse Rate 65 Pulse Rate [1 (Initial Baseline)] Pulse Rate [2] Respiratory Rate 18 Respiratory Rate [1 (Initial Baseline)] Respiratory Rate [2] Blood Pressure 147/65 H Blood Pressure [1 (Initial Baseline)] Blood Pressure [2] Blood Pressure Mean 92 Pulse Ox 97 Oxygen Delivery Method Room Air Oxygen Delivery Method [1 (Initial Baseline)] Oxygen Delivery Method [2] Oxygen Flow Rate (L/min) Oxygen Flow Rate (L/min) [1 (Initial Baseline)] Oxygen Flow Rate (L/min) [2] Positive well nourished and well developed General Appearance ED: well developed and NAD HEENT Reports moist mucous membranes normocephalic and atraumatic Eyes PERRL and EOMs intact bilaterally Neck full ROM and supple Resp normal respiratory effort and clear to auscultation bilaterally Cardio regular rate, regular rhythm and no murmurs GI non-tender and non-distended Auscultation: normoactive bowel sounds Palpation: soft Back/Spine no CVA tenderness General Back: other FROM Extremity Extremity Narrative: Deformity and tenderness right ankle, as well as a large 12 cm full-thickness wound anteromedially at the same area. No bone exposed in the wound. There is minor oozing of blood, there is a tourniquet tightly in place right mid lower leg, with no palpable pulses distally and diffusely cyanotic distally. Otherwise extremity exam is benign. General Extremety ED: Yes tenderness; Negative for edema or pulses abnormal General Extremity: Negative for edema or pulses abnormal Neuro oriented x3, CN's II-XII intact bilaterally and no sensory deficits noted Sensorium / Orientation: awake and alert Motor Exam: strength 5/5 throughout Psych mental status grossly normal and thought process normal Skin no rashes or lesions noted Skin Narrative: 12 cm full-thickness laceration without obvious gross contamination right anteromedial ankle see above. MDM MDM MDM Narrative Medical decision making narrative: Stat portable three-view right ankle series obtained and on my interpretation consistent with a trimalleolar fracture dislocation with displacement of fragments. Afterwards, reassessed the patient and released the tourniquet. No arterial bleeding. The tourniquet was on somewhere between 60 and 75 minutes. Patient had reperfusion with palpable pulses. Dressing was placed over the wound and taped, orthopedics Dr. Garcia was consulted and saw the patient in emergency department, together he reduced the patient while I provided procedural sedation and splinted her, see the procedure note. Neurovascularly intact distally after reduction, postreduction 2 view x-ray series of the right ankle on my interpretation shows good reduction. Patient will be admitted discussed with hospitalist, she was given tetanus update and Ancef IV, and several rounds of analgesics. Estimated blood loss total while in the ER is relatively minimal. She was reevaluated after splinting, and there is no bleeding through the splint. Lab Data Attestation: I reviewed the patient's lab results. Labs: Laboratory Results - last 24 hr 07/19/23 15:00 WBC 3.4 L RBC 4.69 Hgb 14.1 Hct 42.1 MCV 89.8 MCH 30.1 MCHC 33.5 RDW Std Deviation 40.8 RDW Coeff of Neeru 12.4 Plt Count 189 MPV 11.5 Immature Gran % (Auto) 0.000 Neut % (Auto) 52.4 Lymph % (Auto) 31.5 Grand % (Auto) 12.0 H Eos % (Auto) 2.6 Baso % (Auto) 1.5 H Absolute Neuts (auto) 1.8 L Absolute Lymphs (auto) 1.08 Nucleated RBC % 0 PT 13.7 INR 1.1 Sodium 133 L Potassium 3.1 L Chloride 94 L Carbon Dioxide 33.0 H Anion Gap 6 BUN 16 Creatinine 0.91 Estim Creat Clear Calc 35.35 Est GFR (MDRD) Af Amer 76 Est GFR (MDRD) Non-Af 63 BUN/Creatinine Ratio 17.6 Glucose 162 H Calcium 8.9 Radiography Chest X-Ray - ED: 1 View, Read by ED Physician, No Acute Disease and Chronic Changes Diagnostic Testing: Clinical Impression(s) from Imaging Studies Ankle X-Ray 07/19/23 15:10 IMPRESSION: Distal fibular fracture with posterior dislocation of the distal tibial talar joint. Soft tissue swelling. Electronically Signed: Jose Madrigal MD at 15:29 EDT , Chest X-Ray 07/19/23 15:48 IMPRESSION: No radiographic evidence of acute cardiopulmonary disease. Electronically Signed: Michael Myles DO at 16:47 EDT , Ankle X-Ray 07/19/23 16:25 IMPRESSION: Status post reduction and cast placement of ankle fracture dislocation. Electronically Signed: Michael Myles DO at 16:45 EDT , Rhythm Strip Rhythm Strip: Sinus Rhythm Rate: 70 Ectopy: None EKG Initial EKG: Attestation: I personally reviewed and interpreted this EKG as follows: Interpretation: Sinus Rhythm and No Acute Injury Pattern Management Discussion w/another healthcare provider: Hospitalist and Harness Rigger (ortho [place]) Procedures Upper Extremity Splints Upper Extremity Splint: Orthoglass (Short leg stirrup and posterior) Splint Fabrication: Fabricated (Neurovascularly intact distally after splinting) Location: Right Procedural Sedation 1 (Initial Baseline): Consent Signed: Yes Any Problems With Anesthesia: No You/Your family experience fever (hyperthermia) w/anesthesia: No Sedation medication: Etomidate Dose: 10 Route: IV Total Moderate Sedation Units: 11 Maliampati Score: Class III ASA Classification: II Comment:: 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 Tolerated well no complications, uneventful recovery. Discharge Plan Dx/Rx/DC Orders Clinical Impression: Open trimalleolar fracture of right ankle, Fall involving wheelchair, Immunization, tetanus-diphtheria Disposition Disposition: Acute Care [facility]
[2023-07-19] MEDS: Potassium Chloride IVPB 40 MEQ 100 MEQ IV BOLUS ×2 (20:45→21:50)
--- NOTE | 2023-07-19 22:02 | CONS.ORTHO ---
HPI Consult Data Date of Consult: 07/19/23 HPI Narrative Reason for Consultation: Right ankle open fracture dislocation HPI Narrative: RACHEL DUONG, is a 82 F who presents to [facility] the afternoon of 07/19/2023. Patient was at her pain management doctor this afternoon for a an epidural steroid injection. She reports she received some procedural sedation. She was leaving the hospital and upon transferring lost her balance and awkwardly fell twisting her right ankle. Bleeding was noted. Gross deformity was noted. Immediate pain in the right ankle was noted. She was brought to the emergency department. X-rays revealed a trimalleolar right ankle fracture dislocation with approximately 10 cm skin laceration anteriorly. Ancef was administered and tetanus updated by emergency room physician. I saw the patient in the emergency room. She denied any antecedent right lower ankle pain or problems. She denies any numbness or tingling. She was admitted to the service of the hospitalist. FORMERLY [facility], 1928–1983 Medical History Adrenal nodule Atrial fibrillation Breast cancer Chronic ulcer of right leg with fat layer exposed Tinea unguium Home Medications cholecalciferol (vitamin D3) 125 mcg (5,000 unit) tablet (Vitamin D3) 125 mcg PO WE SUPPLEMENT 05/05/22 [History Last Taken 07/13/23] gabapentin 300 mg capsule 600 mg PO BID NEUROPATHY 05/05/22 [History Last Taken 07/18/23] levothyroxine 75 mcg tablet 75 mcg PO SUMOTUWETHFR THYROID 05/05/22 [History Last Taken 07/18/23] multivitamin 1 tab PO DAILY HEALTH MAINTENANCE 05/05/22 [History Last Taken 07/18/23] omeprazole 40 mg capsule,delayed release 40 mg PO DAILY ACID REFLUX 05/05/22 [History Last Taken 07/18/23] triamterene 37.5 mg-hydrochlorothiazide 25 mg capsule 1 cap PO DAILY BLOOD PRESSURE 05/05/22 [History Last Taken 07/18/23] warfarin 5 mg tablet 5 mg PO DAILY BLOOD THINNER 05/05/22 [History Last Taken 07/18/23] amitriptyline 25 mg tablet 25 mg PO QHS PRN DEPRESSION 07/18/23 [History Last Taken 07/18/23] furosemide 20 mg tablet (Lasix) 60 mg PO DAILY FLUID 07/18/23 [History Last Taken 07/18/23] meclizine 12.5 mg tablet 12.5 mg PO BID DIZZINESS #60 tabs 07/18/23 [Rx Last Taken Unknown] ondansetron 4 mg disintegrating tablet 4 mg PO Q8H PRN NAUSEA/VOMITING 07/18/23 [History Last Taken Unknown] propafenone 225 mg tablet 225 mg PO TID AFIB 07/18/23 [History Last Taken 07/19/23] alprazolam 0.5 mg tablet 0.5 mg PO DAILY PRN ANXIETY 07/19/23 [History Last Taken 07/18/23] levothyroxine 75 mcg tablet 37.5 mcg PO SA THYROID 07/19/23 [History Last Taken 07/16/23] oxycodone-acetaminophen 5 mg-325 mg tablet 0.5 tab PO BID PAIN 07/19/23 [History Last Taken 07/18/23] potassium chloride 20 mEq tablet,extended release(part/cryst) 20 meq PO BID SUPPLEMENT 07/19/23 [History Last Taken 07/19/23] trazodone 50 mg tablet 50 mg PO DAILY DEPRESSION 07/19/23 [History Last Taken 07/18/23] vitamin A 2,500 unit-vit C 100 mg-biotin 2,500 skj-wruo-dfzyha capsule (Voru-Ryol-Uzxl (vit A,H-ehkmji-Pc-Cu)) 1 cap PO DAILY SUPPLEMENT 07/19/23 [History Last Taken 07/18/23] Allergy/AdvReac Type Severity Reaction Status Date / Time Adcukfk-KUA-KhR Reductase AdvReac Severe Muscle Pain Verified 07/18/23 09:56 Inhibitor tramadol [From Ultram] AdvReac Severe Other Verified 07/18/23 09:56 Family History Other Hypertension Surgical History S/P bilateral mastectomy Status post bilateral knee 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 Social History Smoking Status: Never smoker alcohol intake: never substance use type: does not use ROS ROS Narrative 12 point review systems obtained, negative unless otherwise noted in HPI. Vital Signs Vital Signs Vital Signs: 07/19/23 14:38 07/19/23 16:14 07/19/23 16:18 Temperature 97.7 F L Temperature Source Oral Pulse Rate 71 58 L Pulse Rate [1 (Initial Baseline)] 66 Pulse Rate [2] 68 Respiratory Rate 18 17 Respiratory Rate [1 (Initial Baseline)] 16 Respiratory Rate [2] 24 H Blood Pressure 167/40 H 124/46 H Blood Pressure [1 (Initial Baseline)] 124/46 H Blood Pressure [2] 167/60 H Blood Pressure Mean 82 Pulse Ox 97 98 Oxygen Delivery Method Room Air Nasal Cannula Oxygen Delivery Method [1 (Initial Baseline)] Nasal Cannula Oxygen Delivery Method [2] Nasal Cannula Oxygen Flow Rate (L/min) 2 Oxygen Flow Rate (L/min) [1 (Initial Baseline)] 2 Oxygen Flow Rate (L/min) [2] 4 07/19/23 16:30 07/19/23 16:35 07/19/23 16:40 Temperature Temperature Source Pulse Rate Pulse Rate [1 (Initial Baseline)] Pulse Rate [2] Respiratory Rate Respiratory Rate [1 (Initial Baseline)] Respiratory Rate [2] Blood Pressure Blood Pressure [1 (Initial Baseline)] Blood Pressure [2] Blood Pressure Mean Pulse Ox Oxygen Delivery Method Nasal Cannula Room Air Room Air Oxygen Delivery Method [1 (Initial Baseline)] Oxygen Delivery Method [2] Oxygen Flow Rate (L/min) 2 Oxygen Flow Rate (L/min) [1 (Initial Baseline)] Oxygen Flow Rate (L/min) [2] 07/19/23 16:48 Temperature 96.5 F L Temperature Source Temporal Pulse Rate 65 Pulse Rate [1 (Initial Baseline)] Pulse Rate [2] Respiratory Rate 18 Respiratory Rate [1 (Initial Baseline)] Respiratory Rate [2] Blood Pressure 147/65 H Blood Pressure [1 (Initial Baseline)] Blood Pressure [2] Blood Pressure Mean 92 Pulse Ox 97 Oxygen Delivery Method Room Air Oxygen Delivery Method [1 (Initial Baseline)] Oxygen Delivery Method [2] Oxygen Flow Rate (L/min) Oxygen Flow Rate (L/min) [1 (Initial Baseline)] Oxygen Flow Rate (L/min) [2] Weight Weight: 196 lb 3.382 oz Body Mass Index (BMI) 37.0 Physical Exam Narrative General -A&Ox3, NAD, appears stated age. Vital signs stable, afebrile. Respiratory -normal work of breathing, no intercostal retractions. CV -pulses regular, brisk capillary refill ?4 limbs. Abdomen-soft, nontender, nondistended. No guarding, rigidity, rebound tenderness. Musculoskeletal/neurologic -full range of motion nontender throughout bilateral upper extremities, left lower extremity with full sensation and strength in all dermatomes and myotomes. No midline cervical tenderness. Right lower extremity demonstrates approximately 10 cm tension failure of the anterior skin with exposed subcutaneous fat. No exposed bone was noted. Patient wiggles her toes on command. Venous oozing was noted. Brisk cap refill in the toes. Nontender about the tibia and knee. Sensation intact throughout. Lab / Micro Data 07/19/23 15:00 07/19/23 15:00 Labs: Laboratory Results - last 24 hr 07/19/23 15:00: WBC 3.4 L, RBC 4.69, Hgb 14.1, Hct 42.1, MCV 89.8, MCH 30.1, MCHC 33.5, RDW Std Deviation 40.8, RDW Coeff of Neeru 12.4, Plt Count 189, MPV 11.5, Immature Gran % (Auto) 0.000, Neut % (Auto) 52.4, Lymph % (Auto) 31.5, [place] % (Auto) 12.0 H, Eos % (Auto) 2.6, Baso % (Auto) 1.5 H, Absolute Neuts (auto) 1.8 L, Absolute Lymphs (auto) 1.08, Nucleated RBC % 0, PT 13.7, INR 1.1, Sodium 133 L, Potassium 3.1 L, Chloride 94 L, Carbon Dioxide 33.0 H, Anion Gap 6, BUN 16, Creatinine 0.91, Estim Creat Clear Calc 35.35, Est GFR (MDRD) Af Amer 76, Est GFR (MDRD) Non-Af 63, BUN/Creatinine Ratio 17.6, Glucose 162 H, Calcium 8.9 Rhythm Strip Rhythm Strip: Sinus Rhythm Rate: 70 Ectopy: None Radiology Impression Ankle X-Ray 07/19/23 15:10 IMPRESSION: Distal fibular fracture with posterior dislocation of the distal tibial talar joint. Soft tissue swelling. Electronically Signed: Jose Madrigal MD at 15:29 EDT , Chest X-Ray 07/19/23 15:48 IMPRESSION: No radiographic evidence of acute cardiopulmonary disease. Electronically Signed: Michael Myles DO at 16:47 EDT , Ankle X-Ray 07/19/23 16:25 IMPRESSION: Status post reduction and cast placement of ankle fracture dislocation. Electronically Signed: Michael Myles DO at 16:45 EDT , Assessment & Plan Assessment/Plan (1) Open trimalleolar fracture of right ankle: QUALIFIERS: Encounter type: initial encounter Open fracture type: open type I or II Qualified Code(s): S82.851B - Displaced trimalleolar fracture of right lower leg, initial encounter for open fracture type I or II PLAN: Patient sustained a right open ankle fracture dislocation -Ancef tetanus administered -Closed reduction and splinting was performed in the emergency department with irrigation of the wound. Moist sponges were placed in the wound. Conscious sedation was administered by the emergency room physician. I then recommended urgent irrigation debridement with application of right ankle external fixator. I reviewed the risks, benefits, terms the procedure with the patient. Risk included but were not limited to bleeding, flexion, loss of life or limb, need for additional surgery, persistent pain, nonhealing wounds or bone, neurovascular injury, tendon injury, stiffness, posttraumatic arthritis, risk of anesthesia. Patient expressed understanding of these risks and wished proceed with surgery. Informed consent was obtained.
--- NOTE | 2023-07-19 22:30 | RAD_ITS ---
STUDY: X-RAY - RIGHT ANKLE REASON FOR EXAM: Female, 82 years old. ORIF TECHNIQUE: 2 view(s) of the ankle. COMPARISON: Comparison is made with prior examination done earlier in the day. FINDINGS: Intraoperative imaging provided for open reduction and internal fixation of the distal fibular fracture. RAD/Ankle 2 Views IMPRESSION: Intraoperative imaging provided for open reduction and internal fixation of the distal fibular fracture. Electronically Signed: Jose Madrigal MD at 8:23 EDT ,
[2023-07-19] MEDS: Bupivacaine 0.25% 30 ML Vial (23:52)
[2023-07-20] VITALS (12 sets, daily range): BP systolic 101–148; BP diastolic 46–73; PULSE 57–72; RESP 16–18; TEMP 36–37; O2SAT 93–100; BMI 35.2
[2023-07-20] MEDS: Potassium Chloride IVPB 40 MEQ 100 MEQ IV BOLUS ×2 (00:27→00:46)
--- NOTE | 2023-07-20 00:27 | PCM.OPRPT ---
Report of Operation Date of Procedure: 07/19/23 Description of Surgical Findings:: Preoperative diagnosis: Right ankle grade 3 open trimalleolar ankle fracture dislocation Postoperative diagnosis: Right ankle grade 3 open trimalleolar ankle fracture dislocation Procedure: 1. Irrigation and debridement of skin, subcutaneous tissue and bone right ankle laceration measuring 15 cm x 3 cm 2. Closed reduction and application of right ankle spanning external fixator Surgeon: Jacob Garcia DO Shared Services And Outsourcing Manager: DANIS Stuart Anesthesia: MAC with peripheral blocks Anesthesiologist: Dr. Magdaleno Complications: None Drains: None Estimated blood loss: 50 cc Urinary output: None recorded IV fluids: 2 L normal saline Specimens: None Surgical implants: Synthes external fixator with 5.0 mm pins, transfixion pin and rods 300, 350 mm Surgical indications: This is a 82-year-old female who underwent epidural corticosteroid injection via her pain management provider today at [facility]. She was leaving the hospital and fell in the parking lot with a twisting injury to her right ankle. Gross deformity, bleeding and open fracture was noted. She was brought to the emergency department. I saw patient emergency department. Closed reduction was performed and she was splinted. IV Ancef and tetanus was administered. I recommended urgent irrigation debridement of the right ankle with application of external fixator. The risk, benefits alternatives to procedure were reviewed with patient at length she agreed to proceed. She expressed understanding wish she would need to undergo a subsequent procedure for removal of external fixator and likely open reduction internal fixation depending on her medical status and soft tissues. Informed consent obtained. Description of procedure: Patient was identified in the preoperative holding area by name, medical record number, date of . The operative extremity was marked. All questions answered patient satisfaction. A popliteal block and saphenous block wore administered by Dr. Magdaleno prior to the procedure. Patient was brought to the operative suite and positioned supine a standard operating table. MAC anesthesia was induced. Splint was removed. We bumped the right hip to internally rotate the leg and elevated on bath blankets. We then prepped and draped the right lower extremity in a normal, sterile orthopedic fashion with Betadine prep. We performed a timeout with all parties in attendance in agreement with the side, site, operation be performed. No concerns were voiced and we elected to proceed. 2 g Ancef was administered by anesthesia staff. I first examined the open fracture. I was able to palpate the medial malleolus fracture. I measured the laceration to be 15 cm x 3 cm. Minimal necrotic skin was noted to the skin edges and was sharply debrided with a 15 blade scalpel to healthy appearing skin. Devitalized periosteum was noted along the medial cortex of the tibia which was sharply debrided. No gross contamination was encountered. We then irrigated the wound with 9 L normal saline solution via cystoscopy tubing. I performed a closed reduction maneuver with traction and varus force. C arm was used to demonstrate appropriate reduction. We then plan to apply our standard delta frame external fixator. I planned my tibial pins 10 cm proximal to the end of the suspected tibial fixation. I marked the skin at appropriate levels. Skin was sharply incised with 15 blade scalpel. We drilled bicortically for 2 pins. Pins were placed to an appropriate depth and tightened by hand. This achieved excellent fixation. We then turned attention to the calcaneus. Using a perfect lateral fluoroscopic image of the ankle, I planned a transfixion pin of the calcaneus 2 cm anterior and proximal to the posterior plantar corner of the calcaneus. This was drilled bicortically and driven out the lateral skin. We drilled the pin to an appropriate depth. We then constructed our delta frame. Reduction maneuver was applied and held with traction. Fluoroscopic images confirmed appropriate reduction. We then tightened the frame ensuring stability. I then turned my attention back to the laceration. The skin was able to be reapproximated. I reapproximated the dermis with interrupted buried 3-0 Monocryl suture. Skin was finally reapproximated with simple 2-0 nylon suture. There is an area of ecchymotic skin along the anterior medial distal lower leg which is concerning for impending skin necrosis. We then applied Xeroform and pressure dressing gauze and Fernando wrap over top of the wounds and leg. Patient tolerated procedure well without complication. She was transferred to her hospital bed and subsequently to PACU in stable condition. Postoperative plan: Patient will be nonweightbearing to the operative extremity. Likely obtaining a CT scan of the right ankle tomorrow. She will likely need definitive fixation in the coming weeks if and when soft tissues allow. We will plan to restart anticoagulation. Patient is on Coumadin for paroxysmal atrial fibrillation. Lovenox provisionally ordered. I will discuss with primary service regarding anticoagulation management. Elevation of the right lower extremity. Mobilize with physical and Occupational Therapy. I suspect patient will need placement due to weightbearing status.
[2023-07-20] MEDS: Lactated Ringers 1,000 ML 70 ML IV ×2 (00:29→13:25)
[2023-07-20 00:50] LABS: Hemoglobin A1c 5.9 % (3.8-5.6)
[2023-07-20] MEDS: Cefazolin 2 GM in 0.9% Normal Saline (100mL Bag) 100 ML IV ×3 (01:55→17:01)
[2023-07-20] MEDS: Acetaminophen 500 MG Tablet 1000 MG PO ×4 (01:56→21:56)
[2023-07-20] MEDS: Senna/Docusate Sodium 1 Tablet 2 TABLET PO (01:57)
[2023-07-20] MEDS: oxyCODONE 5 MG Tablet PO ×4 (02:07→22:11)
[2023-07-20] MEDS: 0.9% Saline Lock 10 ML Syringe IV (04:58)
[2023-07-20] MEDS: Morphine 2 MG/ML Syringe IV (04:58)
[2023-07-20 06:27] LABS: Absolute Lymphocyte Count 0.45 X10^3/uL (0.83-4.51); Absolute Neutrophil Count 4.2 X10^3/uL (2.0-7.7); Basophil# 0.02 X10^3/uL; Basophil% 0.4 % (0-1); Hematocrit 34.2 % (37-47); Hemoglobin 11.3 g/dL (12.0-15.0); Lymphocyte # 0.45 X10^3/ul (0.83-4.51); Lymphocyte % 8.9 % (19-41); Mean Corpuscular Hgb 29.7 pg (27.0-32.0); Mean Corpuscular Volume 89.8 fL (81-99); Mean Platelet Vol. 11.1 fl (6.2-12.0); Monocyte# 0.43 X10^3/uL; Monocyte% 8.5 % (0-10); NRBC Flagged by Analyzer 0 % (0-5); Neutrophil # 4.16 X10^3/uL (2.7-7.7); Neutrophil % 82.2 % (47-70); POSITIVE DIFFERENTIAL YES; Platelet Count 164 K/mm3 (150-450); RBC Distribution Width CV 12.2 % (11.6-14.6); RBC Distribution Width SD 40.2 fl (35.1-43.9); Red Blood Count 3.81 M/mm3 (4.2-5.4); White Blood Count 5.1 K/mm3 (4.4-11.0)
[2023-07-20 06:30] LABS: Differential Indicated SCAN CRITERIA MET
[2023-07-20] MEDS: Levothyroxine 75 MCG Tablet PO (06:37)
[2023-07-20 06:46] LABS: Differential Comment SCANNED
[2023-07-20 07:03] LABS: AST(SGOT) 17 U/L (15-37); Alanine Aminotransfer ALT/SGPT 20 U/L (13-56); Alkaline Phosphatase 64 U/L (45-117); Anion Gap 4 (5-15); BUN 13 mg/dL (7-18); Calcium,Total 8.3 mg/dL (8.5-10.1); Chloride 102 mmol/L (98-107); Creatinine, Serum 0.81 mg/dL (0.55-1.02); EST Glomerular Filtration Rate 71 mL/min (>60); Est Glom Filt Rate - Afr Amer 86 mL/min (>60); Estimated Creatinine Clearance 39.71 ml/min; Globulin 2.9 g/dL (2.2-4.2); Glucose 131 mg/dL (74-106); Magnesium 2.3 mg/dL (1.6-2.6); Potassium 4.4 mmol/L (3.5-5.1); Protein, Total 5.9 g/dL (6.4-8.2); Sodium Level 135 mmol/L (136-145); Thyroid Stim Hormone (TSH) 0.92 uIU/mL (0.358-3.74)
--- NOTE | 2023-07-20 07:48 | PCM.PN.ORT ---
Subjective Subjective Patient seen and examined. She denies any new complaints. Pain is controlled with current pain regimen. Denies fevers, chills, nausea vomiting, chest pain or shortness of breath. Objective Data Objective Data Vital Signs: Vital Signs Temp Pulse Resp BP Pulse Ox O2 Del Method O2 Flow Rate 98.6 F 57 L 16 111/50 L 95 Room Air 2 07/20/23 06:27 07/20/23 06:07/20/23 06:27 07/20/23 06:07/20/23 06:07/20/23 06:07/19/23 16:30 Oxygen Flow Rate (L/min) [2] 4 Oxygen Flow Rate (L/min) [1 ( 2 Initial Baseline)] Oxygen Flow Rate (L/min) 2 Oxygen Delivery Method [2] Nasal Cannula Oxygen Delivery Method [1 ( Nasal Cannula Initial Baseline)] Oxygen Delivery Method Room Air Weight: 186 lb 11.704 oz Body Mass Index (BMI) 35.2 Intake & Output: Intake and Output for Last 24 Hours 07/18/23 07/19/23 07/20/23 23:59 23:59 23:59 Intake Total 150 / 150 807.5 / 807.5 Output Total 350 / 350 Balance 150 / 150 457.5 / 457.5 Lab / Micro Data 07/20/23 05:55 07/20/23 05:55 Labs: Laboratory Results - last 24 hr 07/19/23 15:00: WBC 3.4 L, RBC 4.69, Hgb 14.1, Hct 42.1, MCV 89.8, MCH 30.1, MCHC 33.5, RDW Std Deviation 40.8, RDW Coeff of Neeru 12.4, Plt Count 189, MPV 11.5, Immature Gran % (Auto) 0.000, Neut % (Auto) 52.4, Lymph % (Auto) 31.5, [place] % (Auto) 12.0 H, Eos % (Auto) 2.6, Baso % (Auto) 1.5 H, Absolute Neuts (auto) 1.8 L, Absolute Lymphs (auto) 1.08, Nucleated RBC % 0, PT 13.7, INR 1.1, Sodium 133 L, Potassium 3.1 L, Chloride 94 L, Carbon Dioxide 33.0 H, Anion Gap 6, BUN 16, Creatinine 0.91, Estim Creat Clear Calc 35.35, Est GFR (MDRD) Af Amer 76, Est GFR (MDRD) Non-Af 63, BUN/Creatinine Ratio 17.6, Glucose 162 H, Hemoglobin A1c 5.9 H, Calcium 8.9 07/20/23 05:55: WBC 5.1, RBC 3.81 L, Hgb 11.3 L, Hct 34.2 L, MCV 89.8, MCH 29.7, MCHC 33.0, RDW Std Deviation 40.2, RDW Coeff of Neeru 12.2, Plt Count 164, MPV 11.1, Immature Gran % (Auto) 0.000, Neut % (Auto) 82.2 H, Lymph % (Auto) 8.9 L, [place] % (Auto) 8.5, Eos % (Auto) 0.0, Baso % (Auto) 0.4, Absolute Neuts (auto) 4.2, Absolute Lymphs (auto) 0.45 L, Nucleated RBC % 0, Differential Comment SCANNED, Sodium 135 L, Potassium 4.4, Chloride 102, Carbon Dioxide 29.0, Anion Gap 4 L, BUN 13, Creatinine 0.81, Estim Creat Clear Calc 39.71, Est GFR (MDRD) Af Amer 86, Est GFR (MDRD) Non-Af 71, BUN/Creatinine Ratio 16.0, Glucose 131 H, Calcium 8.3 L, Phosphorus 3.0, Magnesium 2.3, Total Bilirubin 0.30, AST 17, ALT 20, Alkaline Phosphatase 64, Total Protein 5.9 L, Albumin 3.0 L, Globulin 2.9, Albumin/Globulin Ratio 1.0, TSH 0.92 Radiography Diagnostic Testing: Radiology Impression Ankle X-Ray 07/19/23 15:10 IMPRESSION: Distal fibular fracture with posterior dislocation of the distal tibial talar joint. Soft tissue swelling. Electronically Signed: Jose Madrigal MD at 15:29 EDT , Chest X-Ray 07/19/23 15:48 IMPRESSION: No radiographic evidence of acute cardiopulmonary disease. Electronically Signed: Michael Myles DO at 16:47 EDT , Ankle X-Ray 07/19/23 16:25 IMPRESSION: Status post reduction and cast placement of ankle fracture dislocation. Electronically Signed: Michael Myles, DO at 16:45 EDT , Rhythm Strip Rhythm Strip: Sinus Rhythm Rate: 70 Ectopy: None Physical Exam Narrative General - A&Ox3, NAD. VSS/AF Right lower extremity -incisional dressing C/D/I. External fixator in place. SILT Sural, Saphenous, SPN, DPN, Tibial N. distributions. DP, PT 2+. BCR. Wiggles toes on command. Calf is soft and nontender. Assessment & Plan Assessment/Plan (1) Open trimalleolar fracture of right ankle: QUALIFIERS: Encounter type: initial encounter Open fracture type: open type I or II Qualified Code(s): S82.851B - Displaced trimalleolar fracture of right lower leg, initial encounter for open fracture type I or II PLAN: POD#1 s/p I&D, primary skin closure, application of right ankle spanning external fixator -With grade 3 open fracture, I would recommend 48 hours IV antibiotics and transition to 7 days oral Keflex 500 mg 4 times daily. -Maintain surgical dressing. I will plan to change dressing tomorrow. - Pain control - Medicine following for medical management - PT/OT -nonweightbearing right lower extremity -Elevation right foot, ice as needed - DVT PPX -Lovenox ordered, okay to restart Coumadin from my standpoint - Case management - D/C planning. Likely will require placement due to nonweightbearing status
[2023-07-20 08:01] LABS: Vitamin D,25 Hydroxy 58.7 ng/mL
--- NOTE | 2023-07-20 08:33 | WOUNDNOTE ---
Was asked to see patient per hospitalist for laceration s/p fall. patient had surgery last evening per Dr Garcia for right ankle fracture. pt had closed reduction with application of an external fixator. dressing is D&I at this time. will leave in place unless instructed otherwise per Dr Garcia.
--- NOTE | 2023-07-20 09:03 | PCM.PN.HOSP ---
Subjective Subjective No issues post-operative. Objective Data Objective Data Vital Signs: Vital Signs Temp Pulse Resp BP Pulse Ox O2 Del Method O2 Flow Rate 37.0 C 57 L 16 111/50 L 95 Room Air 2 07/20/23 06:07/20/23 06:27 07/20/23 06:07/20/23 06:07/20/23 06:07/20/23 06:07/19/23 16:30 Oxygen Flow Rate (L/min) [2] 4 Oxygen Flow Rate (L/min) [1 ( 2 Initial Baseline)] Oxygen Flow Rate (L/min) 2 Oxygen Delivery Method [2] Nasal Cannula Oxygen Delivery Method [1 ( Nasal Cannula Initial Baseline)] Oxygen Delivery Method Room Air Weight: 84.7 kg Body Mass Index (BMI) 35.2 Intake & Output: Intake and Output for Last 24 Hours 07/18/23 07/19/23 07/20/23 23:59 23:59 23:59 Intake Total 150 / 150 807.5 / 807.5 Output Total 350 / 350 Balance 150 / 150 457.5 / 457.5 Lab / Micro Data 07/20/23 05:55 07/20/23 05:55 Labs: Laboratory Results - last 24 hr 07/19/23 15:00: WBC 3.4 L, RBC 4.69, Hgb 14.1, Hct 42.1, MCV 89.8, MCH 30.1, MCHC 33.5, RDW Std Deviation 40.8, RDW Coeff of Neeru 12.4, Plt Count 189, MPV 11.5, Immature Gran % (Auto) 0.000, Neut % (Auto) 52.4, Lymph % (Auto) 31.5, Bowman % (Auto) 12.0 H, Eos % (Auto) 2.6, Baso % (Auto) 1.5 H, Absolute Neuts (auto) 1.8 L, Absolute Lymphs (auto) 1.08, Nucleated RBC % 0, PT 13.7, INR 1.1, Sodium 133 L, Potassium 3.1 L, Chloride 94 L, Carbon Dioxide 33.0 H, Anion Gap 6, BUN 16, Creatinine 0.91, Estim Creat Clear Calc 35.35, Est GFR (MDRD) Af Amer 76, Est GFR (MDRD) Non-Af 63, BUN/Creatinine Ratio 17.6, Glucose 162 H, Hemoglobin A1c 5.9 H, Calcium 8.9 07/20/23 05:55: WBC 5.1, RBC 3.81 L, Hgb 11.3 L, Hct 34.2 L, MCV 89.8, MCH 29.7, MCHC 33.0, RDW Std Deviation 40.2, RDW Coeff of Neeru 12.2, Plt Count 164, MPV 11.1, Immature Gran % (Auto) 0.000, Neut % (Auto) 82.2 H, Lymph % (Auto) 8.9 L, Bowman % (Auto) 8.5, Eos % (Auto) 0.0, Baso % (Auto) 0.4, Absolute Neuts (auto) 4.2, Absolute Lymphs (auto) 0.45 L, Nucleated RBC % 0, Differential Comment SCANNED, Sodium 135 L, Potassium 4.4, Chloride 102, Carbon Dioxide 29.0, Anion Gap 4 L, BUN 13, Creatinine 0.81, Estim Creat Clear Calc 39.71, Est GFR (MDRD) Af Amer 86, Est GFR (MDRD) Non-Af 71, BUN/Creatinine Ratio 16.0, Glucose 131 H, Calcium 8.3 L, Phosphorus 3.0, Magnesium 2.3, Total Bilirubin 0.30, AST 17, ALT 20, Alkaline Phosphatase 64, Total Protein 5.9 L, Albumin 3.0 L, Globulin 2.9, Albumin/Globulin Ratio 1.0, Vitamin D 25-Hydroxy 58.7, TSH 0.92 Radiography Diagnostic Testing: Radiology Impression Ankle X-Ray 07/19/23 15:10 IMPRESSION: Distal fibular fracture with posterior dislocation of the distal tibial talar joint. Soft tissue swelling. Electronically Signed: Jose Madrigal MD at 15:29 EDT , Chest X-Ray 07/19/23 15:48 IMPRESSION: No radiographic evidence of acute cardiopulmonary disease. Electronically Signed: Michael Myles DO at 16:47 EDT , Ankle X-Ray 07/19/23 16:25 IMPRESSION: Status post reduction and cast placement of ankle fracture dislocation. Electronically Signed: Michael Myles DO at 16:45 EDT , Ankle X-Ray 07/19/23 22:30 IMPRESSION: Intraoperative imaging provided for open reduction and internal fixation of the distal fibular fracture. Electronically Signed: Jose Madrigal MD at 8:23 EDT , Rhythm Strip Rhythm Strip: Sinus Rhythm Rate: 70 Ectopy: None Physical Exam Const alert and no apparent distress HEENT head/scalp atraumatic Extremity Extremity Narrative: right ankle external fixator. Neuro Sensorium / Orientation: awake and alert Psych affect normal Assessment & Plan Assessment/Plan (1) Open trimalleolar fracture of right ankle: QUALIFIERS: Encounter type: initial encounter Open fracture type: open type I or II Qualified Code(s): S82.851B - Displaced trimalleolar fracture of right lower leg, initial encounter for open fracture type I or II PLAN: Distal fibular fracture w posterior dislocation of the distal tibial talar joint. Dislocation reduced in ED s/p I+D of skin of right ankle laceration measuring 15x3cm. Close reduction and application of right ankle spanning external fixator. 25 OH D level 58.7 (2) Hypokalemia: PLAN: Patient was given 60 meq p.o. potassium Magnesium 2.3 PLAN: Plan Chronic conditions: Adrenal nodule-Patient states she was recently diagnosed with adrenal nodules and work-up is in progress-Multiple labs have been drawn recently and are pending History of paroxysmal atrial fibrillation-patient has been off Coumadin for 5 days-continue to hold home Coumadin and consider transition to Eliquis at discharge given ease of administration and there does not appear to be any contraindications to this-Patient states she has not had any atrial fibrillation about 40 years and if she is symptomatic when she does have A-fib GERD-Continue home PPI Hypothyroidism-Continue home levothyroxine-Patient stated she was just started on this recently Chronic low back pain-Continue outpatient management with pain management-As needed pain medication as noted above Vitamin D deficiency-Continue home cholecalciferol supplementation Depression/anxiety-Continue home as needed Xanax however I would advise this to be discontinued as this does increase her risk for falling however it should not be stopped abruptly-We will reduce dose by 50% and recommend weaning-Continue home low-dose trazodone DVT prophylaxis-SCDs for now-Hold chemoprophylaxis until after surgery Code: -DNR CCA with no intubation Disposition: to SNF. Pt had fallen attempting to get into her car. Charges/Coding Visit Charges Inpatient E&M: 74611 Subs Hosp L2
[2023-07-20] MEDS: Enoxaparin 40 MG/0.4 ML Syringe SC (09:55)
[2023-07-20] MEDS: Potassium Chloride Oral Tablet 20 MEQ PO ×2 (09:55→21:57)
[2023-07-20] MEDS: Pantoprazole Sodium 40 MG Tablet PO (09:55)
[2023-07-20] MEDS: Cholecalciferol (Vit D3) 125 MCG CAPSULE (5,000 UNITS) PO (10:04)
--- NOTE | 2023-07-20 11:25 | CASEMGMT ---
RN CM Face to Face with patient for initial transition planning/care coordination assessment. RN CM introduced self and role at [facility]. Patient lying in bed, alert and oriented. Patient willing to participate in assessment and is able to answer all questions appropriately. Care providers, pharmacy, and demographics verified. Patient is aware that she cannot dc home and is agreeable to SNF. Updated SW. Pt has chosen [facility] or [facility]. States she has no preference. Patient states she has no further needs or concerns at this time. CM to follow for discharge planning needs that may arise. PCP:Rosanne Velazquez Specialists:Noman, neuro; Maryi, pain mgmt; Pt unsure of cardio name Preferred Pharmacy:[facility] [place] Insurance:[facility] [employer] Prescription Benefit: yes LNOK:Nyla Freire dtr Living Arrangements:Pt lives alone in a single story home with 4 steps to enter with a rail. Pt reports prior to this fracture she was I in all ADL and IADL's. Transportation: Pt drove self prior to this hospitalization. DME:Pt has a rollator but ambulated without AD HHC: HHC in the past SNF:[facility], [facility] Disposition Plan:SNF
--- NOTE | 2023-07-20 11:51 | CASEMGMT ---
Discharge Planning A list of SNF?providers including quality and resource use data and consistent with the patient's preferred geographic region, medical needs, and insurance network was created in [employer] Guide.? This list was provided to the SW. Marie Hayes Dischrge Planning Asst.
--- NOTE | 2023-07-20 12:24 | NURSING ---
due to technical error- charting by Catherine Mittal RN 07/20 [id number] was charted by Melissa Odell LPN
--- NOTE | 2023-07-20 12:54 | CASEMGMT ---
Discharge Planning SNF referral sent to [facility] and [facility]. Call placed to admissions at [facility] notifying that patient is requesting [facility]. Marie Hayes, Discharge Planning Asst.
--- NOTE | 2023-07-20 13:07 | CASEMGMT ---
Social Work SW met with pt and discussed discharge plan. List of SNF providers given to pt. Pt confirms she would like to go to [facility] or [facility]. Referrals to be sent. Plan: [facility], pending acceptance and precert JOSE DANIEL Morley
--- NOTE | 2023-07-20 13:11 | CASEMGMT ---
Social Work SW met with pt to discuss advance directives.? Pt confirms she has completed a living will and health care POA naming her daughter Carli López. Pt notified that documents are not on file at [facility] and SW requested they be brought in for scanning into the EMR. Pt states documents are on file at PCP. With pt permission, phone call to PCP Marcus's office and requested forms be faxed to [facility]. JOSE DANIEL Morley
[2023-07-20] MEDS: MELATONIN 3 MG TABLET PO (22:11)
[2023-07-20] MEDS: Ondansetron 4 MG/2 ML Vial IV (23:32)
[2023-07-21] VITALS (8 sets, daily range): BP systolic 111–127; BP diastolic 43–71; PULSE 60–67; RESP 16–18; TEMP 36.3–36.8; O2SAT 94–98
[2023-07-21] MEDS: Cefazolin 2 GM in 0.9% Normal Saline (100mL Bag) 100 ML IV ×3 (00:46→16:22)
[2023-07-21] MEDS: oxyCODONE 5 MG Tablet PO ×3 (03:51→21:37)
[2023-07-21] MEDS: 0.9% Normal Saline (250mL Bag) 250 ML 15 ML IV (05:23)
[2023-07-21] MEDS: Morphine 2 MG/ML Syringe IV ×3 (05:50→23:02)
[2023-07-21] MEDS: 0.9% Saline Lock 10 ML Syringe IV (05:50)
[2023-07-21] MEDS: Levothyroxine 75 MCG Tablet PO (06:22)
[2023-07-21] MEDS: Acetaminophen 500 MG Tablet 1000 MG PO ×3 (06:22→21:37)
--- NOTE | 2023-07-21 08:15 | PN.HOSP_ITS ---
Reason for Visit Reason for Visit: Diagnoses Hypokalemia (07/19/23) Hyperglycemia, unspecified (07/19/23) Displaced trimalleolar fracture of right lower leg, initial encounter for open fracture type I or II (07/19/23) Subjective Subjective Feels well. Denies pain. Objective Data Objective Data Vital Signs: Vital Signs Temp Pulse Resp BP Pulse Ox O2 Del Method O2 Flow Rate 36.7 C 61 18 111/71 94 Room Air 2 07/21/23 05:50 07/21/23 05:50 07/21/23 05:50 07/21/23 05:50 07/21/23 07:21 07/21/23 07:21 07/19/23 16:30 Oxygen Flow Rate (L/min) [2] 4 Oxygen Flow Rate (L/min) [1 ( 2 Initial Baseline)] Oxygen Flow Rate (L/min) 2 Oxygen Delivery Method [2] Nasal Cannula Oxygen Delivery Method [1 ( Nasal Cannula Initial Baseline)] Oxygen Delivery Method Room Air Weight: 84.7 kg Body Mass Index (BMI) 35.2 Intake & Output: Intake and Output for Last 24 Hours 07/19/23 07/20/23 07/21/23 23:59 23:59 23:59 Intake Total 150 / 150 2191.17 / 2551.17 1708.83 / 1708.83 Output Total 1250 / 1850 1000 / 1000 Balance 150 / 150 941.17 / 701.17 708.83 / 708.83 Lab / Micro Data 07/20/23 05:55 07/20/23 05:55 Radiography Diagnostic Testing: Radiology Impression Ankle X-Ray 07/19/23 22:30 IMPRESSION: Intraoperative imaging provided for open reduction and internal fixation of the distal fibular fracture. Electronically Signed: Jose Madrigal MD at 8:23 EDT , Rhythm Strip Rhythm Strip: Sinus Rhythm Rate: 70 Ectopy: None Physical Exam Const alert and no apparent distress Resp normal respiratory effort, no retractions, no use of accessory muscles and clear to auscultation bilaterally Cardio regular rate, regular rhythm, S1 normal heart sound and S2 normal heart sound GI normal to inspection, nondistended, normoactive bowel sounds and soft to palpation Assessment & Plan Assessment/Plan (1) Open trimalleolar fracture of right ankle: QUALIFIERS: Encounter type: initial encounter Open fracture type: open type I or II Qualified Code(s): S82.851B - Displaced trimalleolar fracture of right lower leg, initial encounter for open fracture type I or II PLAN: Distal fibular fracture w posterior dislocation of the distal tibial talar joint. Dislocation reduced in ED s/p I+D of skin of right ankle laceration measuring 15x3cm. Close reduction and application of right ankle spanning external fixator. 25 OH D level 58.7 (2) Hypokalemia: PLAN: Resolved after replacement. Patient was given 60 meq p.o. potassium Magnesium 2.3 PLAN: Plan Chronic conditions: * Adrenal nodule-Patient states she was recently diagnosed with adrenal nodules and work-up is in progress-Multiple labs have been drawn recently and are pending * History of paroxysmal atrial fibrillation-patient has been off Coumadin for 5 days-continue to hold home Coumadin and consider transition to Eliquis at dis charge given ease of administration and there does not appear to be any contraindications to this-Patient states she has not had any atrial fibrillation about 40 years and if she is symptomatic when she does have A-fib * GERD-Continue home PPI * Hypothyroidism-Continue home levothyroxine-Patient stated she was just started on this recently * Chronic low back pain-Continue outpatient management with pain management-As needed pain medication as noted above * Vitamin D deficiency-Continue home cholecalciferol supplementation * Depression/anxiety-Continue home as needed Xanax however I would advise this to be discontinued as this does increase her risk for falling however it should not be stopped abruptly-We will reduce dose by 50% and recommend weaning-Continue home low-dose trazodone DVT prophylaxis-SCDs for now-Hold chemoprophylaxis until after surgery Code: -DNR CCA with no intubation Disposition: to SNF. Pt had fallen attempting to get into her car, now NWB in RLE w external fixator. Charges/Coding Visit Charges Inpatient E&M: 56772 Subs Hosp L1
[2023-07-21] MEDS: Potassium Chloride Oral Tablet 20 MEQ PO ×2 (08:34→21:37)
[2023-07-21] MEDS: ALPRAZolam 0.5 MG Tablet 0.25 MG PO (08:34)
[2023-07-21] MEDS: Enoxaparin 40 MG/0.4 ML Syringe SC (08:35)
[2023-07-21] MEDS: Pantoprazole Sodium 40 MG Tablet PO (08:35)
--- NOTE | 2023-07-21 12:27 | CASEMGMT ---
Social Work [facility] is able to accept pt, [facility] does not have open beds. [facility] to start precert at this time. SW met with pt and updated on accepting facilities and pt is agreeable for discharge to [facility]. SW explained that precert will be needed prior to admission. Pt understanding and also states she will notify her daughter. PCP Marcus's office did not have copy of Advance Directives. Pt signed an VALERIE and it was faxed to [facility] requesting Living Will and Health Care POA be faxed to [facility]. Plan: [facility], pending precert JOSE DANIEL Morley
--- NOTE | 2023-07-21 13:31 | PN.ORTHO_ITS ---
Subjective Subjective Patient seen and examined. Denies any new complaints. Pain is controlled with current pain regimen. Denies fevers, chills, nausea vomiting, chest pain or shortness of breath. Objective Data Objective Data Vital Signs: Vital Signs Temp Pulse Resp BP Pulse Ox O2 Del Method O2 Flow Rate 97.4 F L 65 16 124/52 H 95 Room Air 2 07/21/23 11:29 07/21/23 11:07/21/23 11:07/21/23 11:07/21/23 11:07/21/23 11:07/19/23 16:30 Oxygen Flow Rate (L/min) [2] 4 Oxygen Flow Rate (L/min) [1 ( 2 Initial Baseline)] Oxygen Flow Rate (L/min) 2 Oxygen Delivery Method [2] Nasal Cannula Oxygen Delivery Method [1 ( Nasal Cannula Initial Baseline)] Oxygen Delivery Method Room Air Weight: 186 lb 11.704 oz Body Mass Index (BMI) 35.2 Intake & Output: Intake and Output for Last 24 Hours 07/19/23 07/20/23 07/21/23 23:59 23:59 23:59 Intake Total 150 / 150 2191.17 / 2551.17 2118.83 / 2118.83 Output Total 1250 / 1850 1700 / 1700 Balance 150 / 150 941.17 / 701.17 418.83 / 418.83 Lab / Micro Data 07/20/23 05:55 07/20/23 05:55 Rhythm Strip Rhythm Strip: Sinus Rhythm Rate: 70 Ectopy: None Physical Exam Narrative General - A&Ox3, NAD. VSS/AF Right lower extremity -incisional dressing C/D/I. External fixator in place. D ressing removed. Skin edges well are approximated with sutures. Well-perfused skin edges. Pin sites are benign without erythema or drainage. SILT Sural, Saphenous, SPN, DPN, Tibial N. distributions. DP, PT 2+. BCR. Wiggles toes on command. Calf is soft and nontender. Assessment & Plan Assessment/Plan (1) Open ankle fracture: QUALIFIERS: Encounter type: initial encounter Open fracture type: open type III Laterality: right Qualified Code(s): S82.891C - Other fracture of right lower leg, initial encounter for open fracture type IIIA, IIIB, or IIIC (2) Open trimalleolar fracture of right ankle: QUALIFIERS: Encounter type: initial encounter Open fracture type: open type I or II Qualified Code(s): S82.851B - Displaced trimalleolar fracture of right lower leg, initial encounter for open fracture type I or II PLAN: POD#1 s/p I&D, primary skin closure, application of right ankle spanning external fixator -With grade 3 open fracture, I would recommend 48 hours IV antibiotics and transition to 7 days oral Keflex 500 mg 4 times daily. -Dressing changed today. Wound is stable - Pain control - Medicine following for medical management - PT/OT -nonweightbearing right lower extremity -Elevation right foot, ice as needed - DVT PPX -Lovenox ordered, okay to restart Coumadin from my standpoint - Case management - D/C planning. Likely will require placement due to nonweightbearing status I will follow peripherally at this time. Please not hesitate to call if any questions or concerns arise. Postoperative instructions: Pin care daily with hydrogen peroxide. Dry sterile dressing changes daily to the anterior right lower leg. Ice and elevation. Non weightbearing right lower extremity. Follow-up in 2 weeks for wound check and possible suture removal.
[2023-07-21] MEDS: Senna/Docusate Sodium 1 Tablet 2 TABLET PO (21:37)
[2023-07-21] MEDS: traZODone 50 MG Tablet PO (21:37)
[2023-07-21] MEDS: MELATONIN 3 MG TABLET PO (23:01)
[2023-07-22 02:27] VITALS: BP 124/78; PULSE 62; RESP 18; TEMP 36.6; O2SAT 98
[2023-07-22] MEDS: Morphine 2 MG/ML Syringe IV ×2 (02:28→13:18)
[2023-07-22] MEDS: Acetaminophen 500 MG Tablet 1000 MG PO ×3 (06:45→21:47)
[2023-07-22] MEDS: Levothyroxine 75 MCG Tablet PO (06:45)
[2023-07-22] MEDS: Senna/Docusate Sodium 1 Tablet 2 TABLET PO (07:51)
[2023-07-22] MEDS: Potassium Chloride Oral Tablet 20 MEQ PO ×2 (07:52→21:47)
[2023-07-22] MEDS: Pantoprazole Sodium 40 MG Tablet PO (07:52)
[2023-07-22] MEDS: Enoxaparin 40 MG/0.4 ML Syringe SC (07:52)
[2023-07-22] MEDS: oxyCODONE 5 MG Tablet PO ×2 (07:54→21:43)
[2023-07-22 08:19] VITALS: O2SAT 90
[2023-07-22 08:34] VITALS: BP 129/57; PULSE 64; RESP 16; TEMP 36.5; O2SAT 94
--- NOTE | 2023-07-22 08:41 | PN.HOSP_ITS ---
Reason for Visit Reason for Visit: Diagnoses Hypokalemia (07/19/23) Hyperglycemia, unspecified (07/19/23) Displaced trimalleolar fracture of right lower leg, initial encounter for open fracture type I or II (07/19/23) Other fracture of right lower leg, initial encounter for open fracture type IIIA, IIIB, or IIIC (07/19/23) Subjective Subjective No events. Objective Data Objective Data Vital Signs: Vital Signs Temp Pulse Resp BP Pulse Ox O2 Del Method O2 Flow Rate 36.5 C L 64 16 129/57 H 94 Room Air 2 07/22/23 08:34 07/22/23 08:34 07/22/23 08:34 07/22/23 08:34 07/22/23 08:34 07/22/23 08:34 07/21/23 20:06 Oxygen Flow Rate (L/min) [2] 4 Oxygen Flow Rate (L/min) [1 ( 2 Initial Baseline)] Oxygen Flow Rate (L/min) 2 Oxygen Delivery Method [2] Nasal Cannula Oxygen Delivery Method [1 ( Nasal Cannula Initial Baseline)] Oxygen Delivery Method Room Air Weight: 84.7 kg Body Mass Index (BMI) 35.2 Intake & Output: Intake and Output for Last 24 Hours 07/20/23 07/21/23 07/22/23 23:59 23:59 23:59 Intake Total 2191.17 / 2551.17 3228.83 / 3228.83 150 / 150 Output Total 1250 / 1850 2650 / 2650 175 / 175 Balance 941.17 / 701.17 578.83 / 578.83 -25 / -25 Lab / Micro Data 07/20/23 05:55 07/20/23 05:55 Rhythm Strip Rhythm Strip: Sinus Rhythm Rate: 70 Ectopy: None Physical Exam Const alert and no apparent distress Extremity Extremity Narrative: external fixator on right ankle in place. Assessment & Plan Assessment/Plan (1) Open trimalleolar fracture of right ankle: QUALIFIERS: Encounter type: initial encounter Open fracture type: open type I or II Qualified Code(s): S82.851B - Displaced trimalleolar fracture of right lower leg, initial encounter for open fracture type I or II PLAN: Distal fibular fracture w posterior dislocation of the distal tibial talar joint. Dislocation reduced in ED s/p I+D of skin of right ankle laceration measuring 15x3cm. Close reduction and application of right ankle spanning external fixator. 25 OH D level 58.7 (2) Hypokalemia: PLAN: Resolved after replacement. Patient was given 60 meq p.o. potassium Magnesium 2.3 PLAN: Plan Chronic conditions: * Adrenal nodule-Patient states she was recently diagnosed with adrenal nodules and work-up is in progress-Multiple labs have been drawn recently and are pending * History of paroxysmal atrial fibrillation-patient has been off Coumadin for 5 days-continue to hold home Coumadin and consider transition to Eliquis at discharge given ease of administration and there does not appear to be any contraindications to this-Patient states she has not had any atrial fibrillation about 40 years and if she is symptomatic when she does have A-fib * GERD-Continue home PPI * Hypothyroidism-Continue home levothyroxine-Patient stated she was just started on this recently * Chronic low back pain-Continue outpatient management with pain management-As needed pain medication as noted above * Vitamin D deficiency-Continue home cholecalciferol supplementation * Depression/anxiety-Continue home as needed Xanax however I would advise this to be discontinued as this does increase her risk for falling however it should not be stopped abruptly-We will reduce dose by 50% and recommend weaning-Continue home low-dose trazodone DVT prophylaxis-SCDs for now-Hold chemoprophylaxis until after surgery Code: -DNR CCA with no intubation Disposition: to SNF. Pt had fallen attempting to get into her car, now NWB in RLE w external fixator. Charges/Coding Visit Charges Inpatient E&M: 93849 Rust Hosp L1
--- NOTE | 2023-07-22 09:41 | WOUNDNOTE ---
wound photo: right lower leg
--- NOTE | 2023-07-22 09:42 | WOUNDNOTE ---
wound photo: right lower leg
--- NOTE | 2023-07-22 11:06 | PCM.TXEXTCAR ---
Diet Diet Order/Speech Therapy: 07/20/23 06:37 Diet: Regular - General Is pt able to select menu?: Yes Wound(s) R ANKLE: Wound Type: Surgical Incision lumbar: Wound Type: Puncture right lower leg: Wound Type: laceration/external fixator sites Dressing Change: xeroform gauze to laceration/dry dressings to pin sites Therapies Weight Bearing: Non weight bearing Extremity Affected:: Right Lower Physical Therapy: Eval and Treat Occupational Therapy: Eval and Treat Problem/Diagnosis (1) Open trimalleolar fracture of right ankle: Status: Acute Code(s): S82.851B - Displaced trimalleolar fracture of right lower leg, initial encounter for open fracture type I or II Plan: Distal fibular fracture w posterior dislocation of the distal tibial talar joint. Dislocation reduced in ED s/p I+D of skin of right ankle laceration measuring 15x3cm. Close reduction and application of right ankle spanning external fixator. 25 OH D level 58.7 (2) Hypokalemia: Status: Acute Code(s): E87.6 - Hypokalemia Plan: Resolved after replacement. Patient was given 60 meq p.o. potassium Magnesium 2.3 Plan Chronic conditions: Adrenal nodule-Patient states she was recently diagnosed with adrenal nodules and work-up is in progress-Multiple labs have been drawn recently and are pending History of paroxysmal atrial fibrillation-patient has been off Coumadin for 5 days-continue to hold home Coumadin and consider transition to Eliquis at discharge given ease of administration and there does not appear to be any contraindications to this-Patient states she has not had any atrial fibrillation about 40 years and if she is symptomatic when she does have A-fib GERD-Continue home PPI Hypothyroidism-Continue home levothyroxine-Patient stated she was just started on this recently Chronic low back pain-Continue outpatient management with pain management-As needed pain medication as noted above Vitamin D deficiency-Continue home cholecalciferol supplementation Depression/anxiety-Continue home as needed Xanax however I would advise this to be discontinued as this does increase her risk for falling however it should not be stopped abruptly-We will reduce dose by 50% and recommend weaning-Continue home low-dose trazodone DVT prophylaxis-SCDs for now-Hold chemoprophylaxis until after surgery Code: -DNR CCA with no intubation Disposition: to SNF. Pt had fallen attempting to get into her car, now NWB in RLE w external fixator. Allergies/Procedures Done in Hospital Allergies Alijjcq-GEH-BeA Reductase Inhibitor Adverse Reaction (Severe, Verified 07/18/23 09:56) Muscle Pain tramadol [From Ultra] Adverse Reaction (Severe, Verified 07/18/23 09:56) Other HALLUCINATIONS Type of Care/Length of Stay Estimated LOS: Convalescent Care Less Than 30 days Type of Care Needed: Skilled Rehab Potential: Fair Prognosis: Good Additional Orders/Day of Discharge Day of Discharge: 07/22/23 Discharge Plan Admission Admit Date/Time: 07/19/23 17:03 Primary Reason for Your Visit: right ankle fracture Attending Provider: Earl Guardado Primary Care Provider: Rosanne Velazquez Consulting Providers: Jacob Garcia; Shala Chung Discharge Orders/Prescriptions Prescriptions: New acetaminophen 500 mg Tablet 1,000 mg PO Q8 Qty: 0 0RF cephalexin 250 mg Capsule 250 mg PO Q6 Qty: 28 0RF oxycodone 5 mg Tablet 5 mg PO Q4H PRN PRN (Reason: Pain Score 4-10) 3 Days Qty: 12 0RF sennosides-docusate sodium [Stool Softener-Stimulant Laxat] 8.6-50 mg Tablet 2 tab PO BID Qty: 0 0RF Continued furosemide [Lasix] 20 mg tablet 60 mg PO DAILY ondansetron 4 mg tablet,disintegrating 4 mg PO Q8H PRN (Reason: NAUSEA/VOMITING ) meclizine 12.5 mg tablet 12.5 mg PO BID Qty: 60 5RF multivitamin Tablet 1 tab PO DAILY omeprazole 40 mg Capsule,Delayed Release(Dr/Ec) 40 mg PO DAILY triamterene-hydrochlorothiazid 37.5-25 mg Capsule 1 cap PO DAILY levothyroxine 75 mcg Tablet 75 mcg PO SUMOTUWETHFR warfarin 5 mg Tablet 5 mg PO DAILY gabapentin 300 mg Capsule 600 mg PO BID cholecalciferol (vitamin D3) [Vitamin D3] 125 mcg (5,000 unit) Tablet 125 mcg PO WE amitriptyline 25 mg tablet 25 mg PO QHS PRN (Reason: DEPRESSION) propafenone 225 mg tablet 225 mg PO TID trazodone 50 mg tablet 50 mg PO DAILY potassium chloride 20 mEq tablet,ER particles/crystals 20 meq PO BID Bath-Bkps-Krcu(vit A,C-biotin) 2,500 unit-100 mg-2,500 mcg capsule 1 cap PO DAILY nystatin 100,000 unit/gram cream 1 applic TOPICAL BID Patient Comments: APPLY TOPICALLY 2 TIMES A DAY NEEDED (RASH, ITCHING). APPLY 2-3 TIMES DAILY TO AFFECTED AREA(S). ondansetron HCl 4 mg tablet 4 mg PO Q8H PRN (Reason: nausea and vomiting) Patient Comments: TAKE 1 TABLET (4 MG) BY MOUTH EVERY 8 HOURS IF NEEDED FOR NAUSEA OR VOMITING. triamterene-hydrochlorothiazid 37.5-25 mg tablet 1 tab PO DAILY warfarin [Jantoven] 5 mg tablet 5 mg PO DAILY propafenone [Rythmol SR] 225 mg capsule,extended release 12 hr 225 mg PO Q8 alprazolam 0.5 mg tablet 0.5 mg PO DAILY PRN (Reason: ANXIETY ) 3 Days Qty: 3 0RF Discontinued oxycodone-acetaminophen 5-325 mg tablet 0.5 tab PO BID Patient Comments: NEW RX FILLED AND STARTED ON 07-13-23. FILLED A 7 DAY SUPPLY. Referrals / Follow Up: Rosanne Velazquez PA [Primary Care Provider] - Within 2 Weeks Jacob Garcia DO [Med Staff - Active Staff] - Within 2 Weeks Disposition Disposition (needs filled in before D/C Order can be placed): [facility] (1) Open trimalleolar fracture of right ankle Qualifiers: Encounter type: initial encounter Open fracture type: open type I or II Qualified Code(s): S82.851B - Displaced trimalleolar fracture of right lower leg, initial encounter for open fracture type I or II
[2023-07-22] MEDS: Cephalexin 250 MG Capsule PO ×3 (11:33→23:09)
[2023-07-22 11:38] VITALS: BP 128/61; PULSE 59; RESP 16; TEMP 36.5; O2SAT 94
[2023-07-22] MEDS: 0.9% Saline Lock 10 ML Syringe IV (13:18)
[2023-07-22 15:49] VITALS: BP 148/61; PULSE 57; RESP 16; TEMP 36.8; O2SAT 95
--- NOTE | 2023-07-22 16:45 | CASEMGMT ---
Social Work Precert has not yet been obtained. LEONEL requested that if precert is obtained over the weekend, Renuka Jovle call the [facility] unit. SW updated pt and dgt about the precert. [facility] stating they do not have copy of pt's advance directives. Pt and dgt updated. Plan: Renuka Jovel, pending precert JOSE DANIEL Morley
[2023-07-22 20:34] VITALS: BP 148/46; PULSE 60; RESP 18; TEMP 37.1; O2SAT 97
[2023-07-22] MEDS: traZODone 50 MG Tablet PO (21:47)
[2023-07-22] MEDS: MELATONIN 3 MG TABLET PO (23:10)
[2023-07-23] MEDS: Morphine 2 MG/ML Syringe IV ×4 (00:50→19:56)
[2023-07-23 06:27] VITALS: BP 151/58; PULSE 60; RESP 18; TEMP 37.1; O2SAT 96
[2023-07-23] MEDS: oxyCODONE 5 MG Tablet PO ×4 (06:30→21:10)
[2023-07-23] MEDS: Cephalexin 250 MG Capsule PO ×4 (06:30→22:55)
[2023-07-23] MEDS: Acetaminophen 500 MG Tablet 1000 MG PO ×3 (06:30→21:05)
[2023-07-23] MEDS: Levothyroxine 75 MCG Tablet PO (06:31)
--- NOTE | 2023-07-23 07:41 | PN.HOSP_ITS ---
Reason for Visit Reason for Visit: Diagnoses Hypokalemia (07/19/23) Hyperglycemia, unspecified (07/19/23) Displaced trimalleolar fracture of right lower leg, initial encounter for open fracture type I or II (07/19/23) Other fracture of right lower leg, initial encounter for open fracture type IIIA, IIIB, or IIIC (07/19/23) Other fracture of unspecified lower leg, initial encounter for open fracture type I or II (07/19/23) Subjective Subjective Still with pain in her ankle. Would like to minimize narcotics. Objective Data Objective Data Vital Signs: Vital Signs Temp Pulse Resp BP Pulse Ox O2 Del Method O2 Flow Rate 37.1 C 60 18 151/58 H 96 Room Air 2 07/23/23 06:27 07/23/23 06:27 07/23/23 06:27 07/23/23 06:27 07/23/23 06:27 07/23/23 06:27 07/21/23 20:06 Oxygen Flow Rate (L/min) [2] 4 Oxygen Flow Rate (L/min) [1 ( 2 Initial Baseline)] Oxygen Flow Rate (L/min) 2 Oxygen Delivery Method [2] Nasal Cannula Oxygen Delivery Method [1 ( Nasal Cannula Initial Baseline)] Oxygen Delivery Method Room Air Weight: 84.7 kg Body Mass Index (BMI) 35.2 Intake & Output: Intake and Output for Last 24 Hours 07/21/23 07/22/23 07/23/23 23:59 23:59 23:59 Intake Total 3228.83 / 3228.83 1000 / 1000 Output Total 2650 / 2650 650 / 650 900 / 900 Balance 578.83 / 578.83 350 / 350 -900 / -900 Lab / Micro Data 07/20/23 05:55 07/20/23 05:55 Rhythm Strip Rhythm Strip: Sinus Rhythm Rate: 70 Ectopy: None Physical Exam Const alert and no apparent distress Extremity Extremity Narrative: external fixator right ankle. Neuro Sensorium / Orientation: awake and alert Assessment & Plan Assessment/Plan (1) Open trimalleolar fracture of right ankle: QUALIFIERS: Encounter type: initial encounter Open fracture type: open type I or II Qualified Code(s): S82.851B - Displaced trimalleolar fracture of right lower leg, initial encounter for open fracture type I or II PLAN: Distal fibular fracture w posterior dislocation of the distal tibial talar joint. Dislocation reduced in ED s/p I+D of skin of right ankle laceration measuring 15x3cm. Close reduction and application of right ankle spanning external fixator. 25 OH D level 58.7 Still with significant pain in ankle. She is already on scheduled acetaminophen. Will add lidoderm and PRN ibuprofen. (2) Hypokalemia: PLAN: Resolved after replacement. Patient was given 60 meq p.o. potassium Magnesium 2.3 PLAN: Plan Chronic conditions: * Adrenal nodule-Patient states she was recently diagnosed with adrenal nodules and work-up is in progress-Multiple labs have been drawn recently and are pending * History of paroxysmal atrial fibrillation-patient has been off Coumadin for 5 days-continue to hold home Coumadin and consider transition to Eliquis at discharge given ease of administration and there does not appear to be any contraindications to this-Patient states she has not had any atrial fibrillation about 40 years and if she is symptomatic when she does have A-fib * GERD-Continue home PPI * Hypothyroidism-Continue home levothyroxine-Patient stated she was just started on this recently * Chronic low back pain-Continue outpatient management with pain management-As needed pain medication as noted above * Vitamin D deficiency-Continue home cholecalciferol supplementation * Depression/anxiety-Continue home as needed Xanax however I would advise this to be discontinued as this does increase her risk for falling however it rajat uld not be stopped abruptly-We will reduce dose by 50% and recommend weaning- Continue home low-dose trazodone DVT prophylaxis-SCDs for now-Hold chemoprophylaxis until after surgery Code: -DNR CCA with no intubation Disposition: to SNF. Pt had fallen attempting to get into her car, now NWB in RLE w external fixator. Awaiting of precertification. Charges/Coding Visit Charges Inpatient E&M: 55368 Subs Hosp L2
[2023-07-23 08:00] VITALS: BP 120/54; PULSE 63; RESP 18; TEMP 36.9; O2SAT 98
[2023-07-23] MEDS: Enoxaparin 40 MG/0.4 ML Syringe SC (09:39)
[2023-07-23] MEDS: Pantoprazole Sodium 40 MG Tablet PO (09:39)
[2023-07-23] MEDS: Potassium Chloride Oral Tablet 20 MEQ PO ×2 (09:40→21:05)
[2023-07-23] MEDS: 0.9% Saline Lock 10 ML Syringe IV ×2 (09:40→19:56)
[2023-07-23 14:00] VITALS: BP 151/57; PULSE 61; RESP 18; TEMP 36.6; O2SAT 98
--- NOTE | 2023-07-23 16:58 | NURSING ---
Pt is complaining of r upper lateral thigh hurting as well as r hip. She states it increases with palpation and flinches if it is touched. Medicated today with Morphine IV and Oxy po as ordered. Pt refusing to take motrin that was ordered for her. She states she was told by one of her physicians she is not to take motrin. Unsure of reason why. Notified Dr. Vivar of pt c/o r lateral thigh and r hip pain.
[2023-07-23] MEDS: Lidocaine 5% Patch 1 PATCH TOPICAL (17:13)
[2023-07-23 20:10] VITALS: BP 133/51; PULSE 65; RESP 16; TEMP 36.9; O2SAT 98
[2023-07-23] MEDS: Senna/Docusate Sodium 1 Tablet 2 TABLET PO (21:05)
[2023-07-23] MEDS: traZODone 50 MG Tablet PO (21:06)
[2023-07-24] MEDS: 0.9% Saline Lock 10 ML Syringe IV ×5 (00:03→23:50)
[2023-07-24] MEDS: Morphine 2 MG/ML Syringe IV ×4 (00:03→23:50)
[2023-07-24 06:25] VITALS: BP 160/74; PULSE 69; RESP 16; TEMP 36.9; O2SAT 100
[2023-07-24] MEDS: Cephalexin 250 MG Capsule PO ×4 (06:29→23:50)
[2023-07-24] MEDS: Acetaminophen 500 MG Tablet 1000 MG PO ×3 (06:29→21:14)
--- NOTE | 2023-07-24 07:38 | PCM.PN.HOSP ---
Reason for Visit Reason for Visit: Diagnoses Hypokalemia (07/19/23) Hyperglycemia, unspecified (07/19/23) Displaced trimalleolar fracture of right lower leg, initial encounter for open fracture type I or II (07/19/23) Other fracture of right lower leg, initial encounter for open fracture type IIIA, IIIB, or IIIC (07/19/23) Other fracture of unspecified lower leg, initial encounter for open fracture type I or II (07/19/23) Subjective Subjective Was complaining of right hip pain yesterday, improved today. Objective Data Objective Data Vital Signs: Vital Signs Temp Pulse Resp BP Pulse Ox O2 Del Method O2 Flow Rate 36.9 C 69 16 160/74 H 100 Room Air 2 07/24/23 06:25 07/24/23 06:25 07/24/23 06:25 07/24/23 06:25 07/24/23 06:25 07/24/23 06:25 07/21/23 20:06 Oxygen Flow Rate (L/min) [2] 4 Oxygen Flow Rate (L/min) [1 ( 2 Initial Baseline)] Oxygen Flow Rate (L/min) 2 Oxygen Delivery Method [2] Nasal Cannula Oxygen Delivery Method [1 ( Nasal Cannula Initial Baseline)] Oxygen Delivery Method Room Air Weight: 84.7 kg Body Mass Index (BMI) 35.2 Intake & Output: Intake and Output for Last 24 Hours 07/22/23 07/23/23 07/24/23 23:59 23:59 23:59 Intake Total 1000 / 1000 660 / 660 1100 / 1100 Output Total 650 / 650 1625 / 1625 1250 / 1250 Balance 350 / 350 -965 / -965 -150 / -150 Lab / Micro Data 07/20/23 05:55 07/20/23 05:55 Rhythm Strip Rhythm Strip: Sinus Rhythm Rate: 70 Ectopy: None Physical Exam Const alert and no apparent distress Constitutional Narrative: slightly groggy. HEENT head/scalp atraumatic Neuro oriented x3 Assessment & Plan Assessment/Plan (1) Open trimalleolar fracture of right ankle: QUALIFIERS: Encounter type: initial encounter Open fracture type: open type I or II Qualified Code(s): S82.851B - Displaced trimalleolar fracture of right lower leg, initial encounter for open fracture type I or II PLAN: Distal fibular fracture w posterior dislocation of the distal tibial talar joint. Dislocation reduced in ED s/p I+D of skin of right ankle laceration measuring 15x3cm. Close reduction and application of right ankle spanning external fixator. 25 OH D level 58.7 Still with significant pain in ankle. She is already on scheduled acetaminophen. Will add lidoderm and PRN ibuprofen. (2) Hypokalemia: PLAN: Resolved after replacement. Patient was given 60 meq p.o. potassium Magnesium 2.3 PLAN: Plan Chronic conditions: Adrenal nodule-Patient states she was recently diagnosed with adrenal nodules and work-up is in progress-Multiple labs have been drawn recently and are pending History of paroxysmal atrial fibrillation-patient has been off Coumadin for 5 days-continue to hold home Coumadin and consider transition to Eliquis at discharge given ease of administration and there does not appear to be any contraindications to this-Patient states she has not had any atrial fibrillation about 40 years and if she is symptomatic when she does have A-fib GERD-Continue home PPI Hypothyroidism-Continue home levothyroxine-Patient stated she was just started on this recently Chronic low back pain-Continue outpatient management with pain management-As needed pain medication as noted above Vitamin D deficiency-Continue home cholecalciferol supplementation Depression/anxiety-Continue home as needed Xanax however I would advise this to be discontinued as this does increase her risk for falling however it should not be stopped abruptly-We will reduce dose by 50% and recommend weaning-Continue home low-dose trazodone DVT prophylaxis-SCDs for now-Hold chemoprophylaxis until after surgery Code: -DNR CCA with no intubation Disposition: to SNF. Pt had fallen attempting to get into her car, now NWB in RLE w external fixator. Awaiting of precertification. Charges/Coding Visit Charges Inpatient E&M: 20449 [facility] Hosp L1
[2023-07-24 08:19] VITALS: PULSE 80; RESP 18; O2SAT 96
[2023-07-24] MEDS: Lidocaine 5% Patch 1 PATCH TOPICAL (10:46)
[2023-07-24] MEDS: Enoxaparin 40 MG/0.4 ML Syringe SC (10:47)
[2023-07-24] MEDS: Pantoprazole Sodium 40 MG Tablet PO (10:48)
[2023-07-24] MEDS: Senna/Docusate Sodium 1 Tablet 2 TABLET PO ×2 (10:48→21:15)
[2023-07-24] MEDS: Potassium Chloride Oral Tablet 20 MEQ PO ×2 (10:48→21:14)
[2023-07-24] MEDS: oxyCODONE 5 MG Tablet PO ×3 (11:04→21:14)
[2023-07-24 12:20] VITALS: BP 144/55; PULSE 63; RESP 18; TEMP 36.6; O2SAT 95
[2023-07-24 14:00] VITALS: PULSE 65; RESP 18
[2023-07-24] MEDS: Ondansetron 4 MG/2 ML Vial IV (15:48)
[2023-07-24 18:25] VITALS: BP 131/61; PULSE 65; RESP 18; TEMP 36.6; O2SAT 95
[2023-07-24] MEDS: traZODone 50 MG Tablet PO (21:15)
[2023-07-24 22:30] VITALS: BP 150/57; PULSE 65; RESP 16; TEMP 36.9; O2SAT 97
[2023-07-25] VITALS (7 sets, daily range): BP systolic 109–138; BP diastolic 43–81; PULSE 56–76; RESP 16; TEMP 36.6–36.9; O2SAT 95–97
[2023-07-25] MEDS: Ondansetron 4 MG/2 ML Vial IV (00:02)
[2023-07-25] MEDS: oxyCODONE 5 MG Tablet PO ×3 (02:24→20:12)
[2023-07-25] MEDS: Morphine 2 MG/ML Syringe IV (06:19)
[2023-07-25] MEDS: 0.9% Saline Lock 10 ML Syringe IV (06:19)
[2023-07-25] MEDS: Levothyroxine 75 MCG Tablet PO (06:20)
[2023-07-25] MEDS: Acetaminophen 500 MG Tablet 1000 MG PO ×3 (06:21→22:40)
[2023-07-25] MEDS: Cephalexin 250 MG Capsule PO ×4 (06:21→22:42)
--- NOTE | 2023-07-25 10:32 | CASEMGMT ---
Discharge Planning Requested updates for precert sent to [facility] via [employer]. Marie Hayes, Discharge Planning Asst.
[2023-07-25] MEDS: Potassium Chloride Oral Tablet 20 MEQ PO ×2 (10:43→22:40)
[2023-07-25] MEDS: Enoxaparin 40 MG/0.4 ML Syringe SC (10:44)
[2023-07-25] MEDS: Senna/Docusate Sodium 1 Tablet 2 TABLET PO ×2 (10:45→22:41)
[2023-07-25] MEDS: Pantoprazole Sodium 40 MG Tablet PO (10:45)
[2023-07-25] MEDS: Lidocaine 5% Patch 1 PATCH TOPICAL (10:49)
--- NOTE | 2023-07-25 12:42 | CASEMGMT ---
Addendum entered by Heide Das 07/25/23 16:36: Patient was declined for [facility] TCU. LEONEL met with patient and introduced self and role as [facility] SW. SW updated patient regarding TCU and provided a list of SNF options in [facility]. Patient unsure of her preferences at this time and would like to further review with family. Plan: SNF TBD [facility] Addendum entered by Heide Das 07/25/23 13:44: SW met with patient's daughter and was informed they are requesting TCU or [facility] SNF at d/c as they are concerned about [facility] being too far away and wanting to be closer to Dr. Garcia. SW informed patient's daughter of the referral process and explained the patient is pending review with TCU. If TCU is unable to accept, SW to provide a new list of SNF in [facility] as patient's daughter does not believe they still have SNF list. Plan: referral pending with TCU [facility] Original Note: Social Work SW updated by admin staff patient's family is requesting referral be sent to TCU instead of [facility]. Patient's family concerned about the distance to [facility] as well as the limited available doctors in that area. LEONEL updated d/c director of planning. LEONEL backlined Alma Rosa with TCU to review referral. Plan: referral pending with TCU [facility]
--- NOTE | 2023-07-25 13:43 | CASEMGMT ---
Discharge Planning [facility] has received auth for patient to admit. SW updated. Marie Hayes, Discharge Planning Asst.
--- NOTE | 2023-07-25 15:02 | PN_ITS ---
Subjective Subjective Patient seen and examined. She said the pain in her right foot wasnt well controlled. She denied any fever, chills, cough, chest pain, palpitations, dizziness, nausea, vomiting or any other symptoms. Review of systems is otherwise negative. Objective Data Objective Data Vital Signs: Vital Signs Temp Pulse Resp BP Pulse Ox O2 Del Method O2 Flow Rate 97.8 F 66 16 109/43 L 95 Room Air 2 07/25/23 14:14 07/25/23 14:14 07/25/23 14:14 07/25/23 14:14 07/25/23 14:14 07/25/23 14:14 07/21/23 20:06 Oxygen Flow Rate (L/min) [2] 4 Oxygen Flow Rate (L/min) [1 ( 2 Initial Baseline)] Oxygen Flow Rate (L/min) 2 Oxygen Delivery Method [2] Nasal Cannula Oxygen Delivery Method [1 ( Nasal Cannula Initial Baseline)] Oxygen Delivery Method Room Air Weight: 186 lb 11.704 oz Body Mass Index (BMI) 35.2 Intake & Output: Intake and Output for Last 24 Hours 07/23/23 07/24/23 07/25/23 23:59 23:59 23:59 Intake Total 660 / 660 1700 / 1900 500 / 500 Output Total 1625 / 1625 2500 / 2500 400 / 400 Balance -965 / -965 -800 / -600 100 / 100 Lab / Micro Data 07/20/23 05:55 07/20/23 05:55 Rhythm Strip Rhythm Strip: Sinus Rhythm Rate: 70 Ectopy: None Physical Exam Const alert, oriented x3, no apparent distress and well nourished General Appearance: cooperative HEENT normocephalic, head/scalp atraumatic, moist oral mucous membranes and oropharynx normal Eyes PERRL and EOMs intact bilaterally Neck no lymphadenopathy and supple Lymph Lymphatic: no lymphedema noted Resp normal respiratory effort, normal air movement and clear to auscultation bilaterally Cardio regular rate, regular rhythm, S1 normal heart sound, S2 normal heart sound and no murmurs GI normal to inspection, nondistended, normoactive bowel sounds, soft to palpation, non-tender and non-distended Extremity normal capillary refill Extremity Narrative: RLE wrapped in bandage. Skin Wound Narrative: as under extremity, with RLE wrapped in bandage. Neuro CN's II-XII intact bilaterally and no focal motor deficits Motor Exam: general weakness Psych thought process normal Appearance: appropriate Assessment & Plan Assessment/Plan (1) Open ankle fracture: QUALIFIERS: Encounter type: initial encounter Open fracture type: open type III Laterality: right Qualified Code(s): S82.891C - Other fracture of right lower leg, initial encounter for open fracture type IIIA, IIIB, or IIIC PLAN: Plan #ORIF of right ankle trimalleolar fracture * also had I&D of right ankle laceration. Had closed reduction and application of right ankle spanning external fixator. * PT./OT on board * orthopedics on board * on PO tylenol, ibuprofen prn and lidoderm patch daily as well as oxycodone * #Hypokalemia: resolved #GERD: on PPI #History of paroxysmal afib: #Hypothyroidism: on synthroid #Vitamin D deficiency: on cholecalciferol #Depresion and anxiety: on xanax. On low dose trazodone. #Adrenal nodule: was recently diagnosed with adrenal nodule; will have to follow up with PCP on outpatient basis for further workup for this. DVT prophylaxis: Lovenox; will place on eliquis 2.5mg bid to help with afib as well as help decrease risk of stroke with afib. Charges/Coding Visit Charges Inpatient E&M: 63456 Subs Hosp L2
--- NOTE | 2023-07-25 16:17 | CASEMGMT ---
Discharge Planning A list of?SNF providers including quality and resource use data and consistent with the patient's preferred geographic region, medical needs, and insurance network was created in [employer] Guide.? This list was provided to the SW. Patient requested list of SNFs located in [facility] only. Marie Hayes, Discharge Planning Asst.
[2023-07-25] MEDS: traZODone 50 MG Tablet PO (22:40)
[2023-07-26] MEDS: oxyCODONE 5 MG Tablet PO ×4 (01:05→14:44)
[2023-07-26 04:15] VITALS: BP 136/54; PULSE 74; RESP 16; TEMP 36.7; O2SAT 97
[2023-07-26] MEDS: Cephalexin 250 MG Capsule PO ×2 (05:30→11:44)
[2023-07-26] MEDS: Levothyroxine 75 MCG Tablet PO (05:30)
[2023-07-26] MEDS: Acetaminophen 500 MG Tablet 1000 MG PO ×2 (05:30→14:45)
[2023-07-26 07:00] LABS: Absolute Lymphocyte Count 0.71 X10^3/uL (0.83-4.51); Basophil# 0.03 X10^3/uL; Basophil% 0.9 % (0-1); Eosinophil# 0.09 X10^3/uL; Eosinophils% 2.7 % (0-5); Hemoglobin 10.8 g/dL (12.0-15.0); Lymphocyte # 0.71 X10^3/ul (0.83-4.51); Lymphocyte % 21.6 % (19-41); Mean Corp Hgb Conc 32.7 g/dL (32-36); Mean Corpuscular Hgb 29.3 pg (27.0-32.0); Mean Corpuscular Volume 89.7 fL (81-99); Mean Platelet Vol. 11.1 fl (6.2-12.0); Monocyte# 0.42 X10^3/uL; Monocyte% 12.8 % (0-10); NRBC Flagged by Analyzer 0 % (0-5); Neutrophil # 2.03 X10^3/uL (2.7-7.7); Neutrophil % 61.7 % (47-70); POSITIVE COUNT YES; Platelet Count 150 K/mm3 (150-450); RBC Distribution Width CV 12.7 % (11.6-14.6); RBC Distribution Width SD 41.6 fl (35.1-43.9); Red Blood Count 3.68 M/mm3 (4.2-5.4); White Blood Count 3.3 K/mm3 (4.4-11.0)
[2023-07-26 07:04] LABS: Differential Indicated SCAN CRITERIA MET
[2023-07-26 07:19] LABS: Anion Gap 6 (5-15); BUN 15 mg/dL (7-18); Calcium,Total 8.5 mg/dL (8.5-10.1); Chloride 105 mmol/L (98-107); Creatinine, Serum 0.56 mg/dL (0.55-1.02); EST Glomerular Filtration Rate 111 mL/min (>60); Est Glom Filt Rate - Afr Amer 134 mL/min (>60); Glucose 99 mg/dL (74-106); Potassium 4.6 mmol/L (3.5-5.1); Sodium Level 137 mmol/L (136-145)
[2023-07-26 07:57] VITALS: BP 117/54; PULSE 65; RESP 16; TEMP 36.7; O2SAT 96
[2023-07-26 08:46] VITALS: BP 117/54; PULSE 59; RESP 14; TEMP 36.7
[2023-07-26] MEDS: Potassium Chloride Oral Tablet 20 MEQ PO (09:07)
[2023-07-26] MEDS: Enoxaparin 40 MG/0.4 ML Syringe SC (09:08)
[2023-07-26] MEDS: Lidocaine 5% Patch 1 PATCH TOPICAL (09:08)
[2023-07-26] MEDS: Senna/Docusate Sodium 1 Tablet 2 TABLET PO (09:09)
[2023-07-26] MEDS: Pantoprazole Sodium 40 MG Tablet PO (09:09)
--- NOTE | 2023-07-26 09:47 | CASEMGMT ---
Social Work SW met with patient and reviewed progress towards placement, explaining [facility] had precert, so the patient could d/c today. Patient continues to state she does not want to go to [facility] and had bad information about their care. Patient states her preferences are [facility] and [facility]. Patient explained her family was concerned about driving from [place] to [place] so the patient could meet with Dr. Garcia, however, the patient prefers to be in [place] as it is closer to her family, where her PCP is located and close to her home. Patient agreeable for SW to contact patient's daughter to ensure everyone is agreeable to the plan. SW contacted patient's daughter and engaged her in conversation regarding the discharge plan. Patient's daughter also reporting preference is no longer [facility] and is agreeable to [place] or [facility] if TCU can not accept. SW explained TCU declined patient yesterday and reviewed referral process. Patient's daughter reports understanding and voiced appreciation. Care team updated. Plan: referral pending with [facility]
--- NOTE | 2023-07-26 09:53 | NURSING ---
per community youth secretary, pt had requested pain meds. But upon entering room, pt was observed with eyes closed and snoring softly.
--- NOTE | 2023-07-26 10:07 | CASEMGMT ---
Discharge Planning Message sent to [facility] via [employer] that patient no longer wants go admit and asked for precert to be cancelled. Referral made to [facility] and again to [facility]. Marie Hayes, Discharge Planning Asst.
--- NOTE | 2023-07-26 10:12 | CASEMGMT ---
Discharge Planning [facility] declined patient. SW updated. Marie Hayes, Discharge Planning Asst.
--- NOTE | 2023-07-26 11:32 | CASEMGMT ---
Discharge Planning Patient has been declined by [facility]. SW updated. Marie Hayes, Discharge Planning
--- NOTE | 2023-07-26 11:49 | CASEMGMT ---
Social Work SW updated by D/C rn first assistant, patient was declined from [facility] as well as [facility]. SW met with patient and provided update. SW assisted patient in reviewing SNF list, patient uninterested in other [place] facilities in network. Patient requesting SW contact patient's daughter to further discuss. SW contacted patient's daughter and provided an update. Patient's daughter requesting to come in to meet with SW and patient to further discuss. SW agreeable to meeting to discuss d/c plan. Plan: SNF- TBD Heide MULLEN, [facility]
--- NOTE | 2023-07-26 13:15 | PCM.PROGNOTE ---
Subjective Subjective Patient seen and examined. She still complained of poorly controlled pain. Review of systems is otherwise negative. She is still awaiting placement Objective Data Objective Data Vital Signs: Vital Signs Temp Pulse Resp BP Pulse Ox O2 Del Method O2 Flow Rate 98.1 F 59 L 14 117/54 L 96 Room Air 2 07/26/23 08:46 07/26/23 08:46 07/26/23 08:46 07/26/23 08:46 07/26/23 07:57 07/26/23 08:46 07/21/23 20:06 Oxygen Flow Rate (L/min) [2] 4 Oxygen Flow Rate (L/min) [1 ( 2 Initial Baseline)] Oxygen Flow Rate (L/min) 2 Oxygen Delivery Method [2] Nasal Cannula Oxygen Delivery Method [1 ( Nasal Cannula Initial Baseline)] Oxygen Delivery Method Room Air Weight: 186 lb 11.704 oz Body Mass Index (BMI) 35.2 Intake & Output: Intake and Output for Last 24 Hours 07/24/23 07/25/23 07/26/23 23:59 23:59 23:59 Intake Total 1700 / 1900 500 / 500 Output Total 2500 / 2500 900 / 900 600 / 600 Balance -800 / -600 -400 / -400 -600 / -600 Lab / Micro Data 07/26/23 06:20 07/26/23 06:20 Labs: Laboratory Results - last 24 hr 07/26/23 06:20: WBC 3.3 L, RBC 3.68 L, Hgb 10.8 L, Hct 33.0 L, MCV 89.7, MCH 29.3, MCHC 32.7, RDW Std Deviation 41.6, RDW Coeff of Neeru 12.7, Plt Count 150, MPV 11.1, Immature Gran % (Auto) 0.300, Neut % (Auto) 61.7, Lymph % (Auto) 21.6, [place] % (Auto) 12.8 H, Eos % (Auto) 2.7, Baso % (Auto) 0.9, Absolute Neuts (auto) 2.0, Absolute Lymphs (auto) 0.71 L, Nucleated RBC % 0, Sodium 137, Potassium 4.6, Chloride 105, Carbon Dioxide 26.0, Anion Gap 6, BUN 15, Creatinine 0.56, Estim Creat Clear Calc 31.60, Est GFR (MDRD) Af Amer 134, Est GFR (MDRD) Non-Af 111, BUN/Creatinine Ratio 27.0 H, Glucose 99, Calcium 8.5 Rhythm Strip Rhythm Strip: Sinus Rhythm Rate: 70 Ectopy: None Physical Exam Const alert, oriented x3, no apparent distress and well nourished General Appearance: cooperative HEENT normocephalic, head/scalp atraumatic, hearing grossly normal bilaterally, moist oral mucous membranes and oropharynx normal Eyes PERRL and EOMs intact bilaterally Neck no lymphadenopathy and supple Lymph Lymphatic: no lymphedema noted Resp normal respiratory effort, normal air movement, no retractions, no use of accessory muscles and clear to auscultation bilaterally Cardio regular rate, regular rhythm, S1 normal heart sound, S2 normal heart sound, no murmurs, no rub, no gallops and no clicks GI normal to inspection, nondistended, normoactive bowel sounds, soft to palpation, non-tender and non-distended Extremity normal capillary refill Extremity Narrative: RLE wrapped in bandage. Skin skin turgor normal, no jaundice, no petechiae and no mottling Wound Narrative: as under extremity, with RLE wrapped in bandage. Neuro oriented x3, CN's II-XII intact bilaterally and no focal motor deficits Sensorium / Orientation: awake and alert Speech: speech normal Motor Exam: general weakness Psych thought process normal, cooperative and affect normal Appearance: appropriate Assessment & Plan Assessment/Plan (1) Open ankle fracture: QUALIFIERS: Encounter type: initial encounter Laterality: right Open fracture type: open type III Qualified Code(s): S82.891C - Other fracture of right lower leg, initial encounter for open fracture type IIIA, IIIB, or IIIC PLAN: Plan #ORIF of right ankle trimalleolar fracture also had I&D of right ankle laceration. Had closed reduction and application of right ankle spanning external fixator. PT/OT on board orthopedics on board on PO tylenol, ibuprofen prn and lidoderm patch daily as well as oxycodone #Hypokalemia: resolved #Afib: rate controlled. on coumadin at home. Will place on eliquis 2.5mg bid. #GERD: on PPI #Hypothyroidism: on synthroid #Vitamin D deficiency: on cholecalciferol #Depression and anxiety: on xanax. On low dose trazodone. #Adrenal nodule: was recently diagnosed with adrenal nodule; will have to follow up with PCP on outpatient basis for further workup for this. DVT prophylaxis: Lovenox; will place on eliquis 2.5mg bid to help with afib as well as help decrease risk of stroke with afib. AUDREY lovenox Charges/Coding Visit Charges Inpatient E&M: 29071 Subs Hosp L2
--- NOTE | 2023-07-26 13:48 | CASEMGMT ---
Discharge Planning Referral sent to [facility] and [facility] via [facility]. Marie Hayes, Discharge Planning Asst.
--- NOTE | 2023-07-26 13:52 | CASEMGMT ---
Addendum entered by Heide Das 07/26/23 15:41: Patient accepted to [facility] and precert obtained. SW updated MD Suazo via backline, plan to D/C today. D/C reference library assistant and care team updated. SW met with patient and patient's family to provide update. Patient and family experienced their appreciation and have no questions at this time. Plan: [facility] for skilled via cot ALEXEY Kong Original Note: Social Work SW met with patient and patient's family and engaged them in conversation regarding discharge plan. Patient's family explained the concern regarding [facility] was transportation as they were informed by CC staff they would not be able to assist the patient to appointments in [place] consistently. Familyis also concerned about the distance from [place] to [place] for transport. Patient and patient's family agreeable to review Psychiatric SNFs. Patient's preferences are 1. [facility] 2. [facility]. SW reviewed referral process. Patient and family voiced appreciation. LEONEL updated d/c reference library assistant of SNF choices. Plan: referrals pending with [facility] [place] and [facility] ALEXEY Kong
--- NOTE | 2023-07-26 14:11 | CASEMGMT ---
Discharge Planning Patient has been declined by [facility] (no open beds). SW updated. Marie Hayes, Discharge Planning Asst.
[2023-07-26 14:33] VITALS: BP 124/97; PULSE 62; RESP 16; TEMP 37.2; O2SAT 96
--- NOTE | 2023-07-26 15:03 | CASEMGMT ---
Discharge Planning [facility] has received auth. SW updated. Marie Hayes, Discharge Planning Asst.
--- NOTE | 2023-07-26 15:11 | TREXTCAR_ITS ---
Diet Diet Order/Speech Therapy: 07/20/23 06:37 Diet: Regular - General Is pt able to select menu?: Yes Routine Orders/Code Status Enema Type: Fleetz Enema Frequency: Daily PRN Suppository Type: Dulcolax 10mg Suppository Frequency: Daily PRN O2 Frequency: PRN Keep PO Greater than or Equal to (%): 90 Wound(s) R ANKLE: Wound Type: Surgical Incision lumbar: Wound Type: Puncture right lower leg: Wound Type: laceration/external fixator sites Dressing Change: xeroform gauze Therapies Physical Therapy: Eval and Treat Occupational Therapy: Eval and Treat Problem/Diagnosis (1) Open ankle fracture: Status: Acute Code(s): S82.899B - Other fracture of unspecified lower leg, initial encounter for open fracture type I or II Plan #ORIF of right ankle trimalleolar fracture * also had I&D of right ankle laceration. Had closed reduction and application of right ankle spanning external fixator. * PT/OT on board * orthopedics on board * on PO tylenol, ibuprofen prn and lidoderm patch daily as well as oxycodone * #Hypokalemia: resolved #Afib: rate controlled. on coumadin at home. Will place on eliquis 2.5mg bid. #GERD: on PPI #Hypothyroidism: on synthroid #Vitamin D deficiency: on cholecalciferol #Depression and anxiety: on xanax. On low dose trazodone. #Adrenal nodule: * was recently diagnosed with adrenal nodule; will have to follow up with PCP on outpatient basis for further workup for this. DVT prophylaxis: Lovenox; will place on eliquis 2.5mg bid to help with afib as well as help decrease risk of stroke with afib. DC lovenox Allergies/Procedures Done in Hospital Allergies [id number] Reductase Inhibitor Adverse Reaction (Severe, Verified 07/18/23 09:56) Muscle Pain tramadol [From Ultram] Adverse Reaction (Severe, Verified 07/18/23 09:56) Other HALLUCINATIONS Procedures: None Type of Care/Length of Stay Estimated LOS: Convalescent Care Less Than 30 days Type of Care Needed: Skilled Rehab Potential: Fair Prognosis: Good Additional Orders/Day of Discharge Day of Discharge: 07/22/23 Discharge Plan Admission Admit Date/Time: 07/19/23 17:03 Primary Reason for Your Visit: right ankle fracture Attending Provider: Fiona Suazo Primary Care Provider: Rosanne Velazquez Consulting Providers: Jacob Garcia; Shala Chung; Earl Guardado Discharge Orders/Prescriptions Prescriptions: New acetaminophen 500 mg Tablet 1,000 mg PO Q8 Qty: 0 0RF cephalexin 250 mg Capsule 250 mg PO Q6 Qty: 28 0RF oxycodone 5 mg Tablet 5 mg PO Q4H PRN PRN (Reason: Pain Score 4-10) 3 Days Qty: 12 0RF sennosides-docusate sodium [Stool Softener-Stimulant Laxat] 8.6-50 mg Tablet 2 tab PO BID Qty: 0 0RF Continued furosemide [Lasix] 20 mg tablet 60 mg PO DAILY ondansetron 4 mg tablet,disintegrating 4 mg PO Q8H PRN (Reason: NAUSEA/VOMITING ) meclizine 12.5 mg tablet 12.5 mg PO BID Qty: 60 5RF multivitamin Tablet 1 tab PO DAILY omeprazole 40 mg Capsule,Delayed Release(Dr/Ec) 40 mg PO DAILY triamterene-hydrochlorothiazid 37.5-25 mg Capsule 1 cap PO DAILY levothyroxine 75 mcg Tablet 75 mcg PO SUMOTUWETHFR warfarin 5 mg Tablet 5 mg PO DAILY gabapentin 300 mg Capsule 600 mg PO BID cholecalciferol (vitamin D3) [Vitamin D3] 125 mcg (5,000 unit) Tablet 125 mcg PO WE amitriptyline 25 mg tablet 25 mg PO QHS PRN (Reason: DEPRESSION) propafenone 225 mg tablet 225 mg PO TID trazodone 50 mg tablet 50 mg PO DAILY potassium chloride 20 mEq tablet,ER particles/crystals 20 meq PO BID [id number](vit A,C-biotin) 2,500 unit-100 mg-2,500 mcg capsule 1 cap PO DAILY nystatin 100,000 unit/gram cream 1 applic TOPICAL BID Patient Comments: APPLY TOPICALLY 2 TIMES A DAY NEEDED (RASH, ITCHING). APPLY 2-3 TIMES DAILY TO AFFECTED AREA(S). ondansetron HCl 4 mg tablet 4 mg PO Q8H PRN (Reason: nausea and vomiting) Patient Comments: TAKE 1 TABLET (4 MG) BY MOUTH EVERY 8 HOURS IF NEEDED FOR NAUSEA OR VOMITING. triamterene-hydrochlorothiazid 37.5-25 mg tablet 1 tab PO DAILY warfarin [Jantoven] 5 mg tablet 5 mg PO DAILY propafenone [Rythmol SR] 225 mg capsule,extended release 12 hr 225 mg PO Q8 alprazolam 0.5 mg tablet 0.5 mg PO DAILY PRN (Reason: ANXIETY ) 3 Days Qty: 3 0RF Discontinued oxycodone-acetaminophen 5-325 mg tablet 0.5 tab PO BID Patient Comments: NEW RX FILLED AND STARTED ON 07-13-23. FILLED A 7 DAY SUPPLY. Referrals / Follow Up: Jacob Garcia DO [Med Staff - Active Staff] - Within 2 Weeks Rosanne Velazquez, PA [Primary Care Provider] - Within 2 Weeks Disposition Disposition (needs filled in before D/C Order can be placed): Long Term Fa cility (1) Open ankle fracture Qualifiers: Encounter type: initial encounter Open fracture type: open type III Laterality: right Qualified Code(s): S82.891C - Other fracture of right lower leg, initial encounter for open fracture type IIIA, IIIB, or IIIC
--- NOTE | 2023-07-26 15:12 | DS.PCM_ITS ---
Providers Date of Admission: 07/19/23 Date of Discharge: 07/26/23 Primary Care Physician: XANDER Kraus Consultations 07/20/23 00:16 Consult: Onc/Wound/ironworker foreman Routine Comment: Consult: Orthopedics Routine Consulting Provider: Jacob Garcia Reason for Consult: R ankle fx EMERGENT Consult: No MD Notified: Yes Date Notified: 07/19/23 Time Notified: 17:05 Method of Notification: ED Physician Initiated Reason For Visit: RT OPEN TRIMALLEOLAR FRACTURE Diagnosis Discharge Diagnosis (1) Open ankle fracture: Status: Acute Code(s): S82.899B - Other fracture of unspecified lower leg, initial encounter for open fracture type I or II Qualifiers: Encounter type: initial encounter Laterality: right Open fracture type: open type III Qualified Code(s): S82.891C - Other fracture of right lower leg, initial encounter for open fracture type IIIA, IIIB, or IIIC Plan #ORIF of right ankle trimalleolar fracture * also had I&D of right ankle laceration. Had closed reduction and application of right ankle spanning external fixator. * PT/OT on board * orthopedics on board * on PO tylenol, ibuprofen prn and lidoderm patch daily as well as oxycodone * #Hypokalemia: resolved #Afib: rate controlled. on coumadin at home. Will place on eliquis 2.5mg bid. #GERD: on PPI #Hypothyroidism: on synthroid #Vitamin D deficiency: on cholecalciferol #Depression and anxiety: on xanax. On low dose trazodone. #Adrenal nodule: * was recently diagnosed with adrenal nodule; will have to follow up with PCP on outpatient basis for further workup for this. DVT prophylaxis: Lovenox; will place on eliquis 2.5mg bid to help with afib as well as help decrease risk of stroke with afib. DC lovenox Medications at Discharge Home Medications cholecalciferol (vitamin D3) 125 mcg (5,000 unit) tablet (Vitamin D3) 125 mcg PO WE SUPPLEMENT 05/05/22 gabapentin 300 mg capsule 600 mg PO BID NEUROPATHY 05/05/22 levothyroxine 75 mcg tablet 75 mcg PO SUMOTUWETHFR THYROID 05/05/22 multivitamin 1 tab PO DAILY HEALTH MAINTENANCE 05/05/22 omeprazole 40 mg capsule,delayed release 40 mg PO DAILY ACID REFLUX 05/05/22 triamterene 37.5 mg-hydrochlorothiazide 25 mg capsule 1 cap PO DAILY BLOOD PRESSURE 05/05/22 warfarin 5 mg tablet 5 mg PO DAILY BLOOD THINNER 05/05/22 amitriptyline 25 mg tablet 25 mg PO QHS PRN DEPRESSION 07/18/23 furosemide 20 mg tablet (Lasix) 60 mg PO DAILY FLUID 07/18/23 meclizine 12.5 mg tablet 12.5 mg PO BID DIZZINESS #60 tabs 07/18/23 ondansetron 4 mg disintegrating tablet 4 mg PO Q8H PRN NAUSEA/VOMITING 07/18/23 propafenone 225 mg tablet 225 mg PO TID AFIB 07/18/23 potassium chloride 20 mEq tablet,extended release(part/cryst) 20 meq PO BID SUPPLEMENT 07/19/23 trazodone 50 mg tablet 50 mg PO DAILY DEPRESSION 07/19/23 vitamin A 2,500 unit-vit C 100 mg-biotin 2,500 hgl-rlwl-zbvolh capsule (Hair-Ski n-Nail (vit A,G-ovttlx-Xr-Cu)) 1 cap PO DAILY SUPPLEMENT 07/19/23 nystatin 100,000 unit/gram topical cream 1 applic topical BID yeast infection 07/20/23 ondansetron HCl 4 mg tablet 4 mg PO Q8H PRN nausea and vomiting 07/20/23 propafenone 225 mg capsule,extended release 12 hr (Rythmol SR) 225 mg PO Q8 afib 07/20/23 triamterene 37.5 mg-hydrochlorothiazide 25 mg tablet 1 tab PO DAILY bp 07/20/23 warfarin 5 mg tablet (Jantoven) 5 mg PO DAILY blood thinner 07/20/23 acetaminophen 500 mg tablet 1,000 mg (2 x 500 mg) PO Q8 #0 tabs 07/22/23 alprazolam 0.5 mg tablet 0.5 mg PO DAILY PRN ANXIETY 3 days #3 tabs 07/22/23 cephalexin 250 mg capsule 250 mg PO Q6 #28 caps 07/22/23 oxycodone 5 mg tablet 5 mg PO Q4H PRN PRN Pain Score 4-10 3 days #12 tabs 07/22/23 sennosides 8.6 mg-docusate sodium 50 mg tablet (Stool Softener-Stimulant Laxative) 2 tab PO BID #0 tabs 07/22/23 Hospital Course Procedures - (closed reduction and application of right ankle spanning external fixator; irrigation and debridement of skin, sc tissue and bone right ankle laceration.) Summary of Care Provided Minutes Spent on Discharge: 45 Hospital Course: Patient is an 82-year-old female with a past medical history as outlined was admitted through the ED on 07/19/2023 with a complaint of mechanical fall and resultant right ankle pain. She had had an injection in her lumbar spine and was getting into her car from her pain management doctors office when she suffered a mechanical fall. She had a history of poor balance and had been seeing a neurologist on outpatient basis. Rapid response was called and she was brought to the ED. Imaging done showed a distal fibula fracture with posterior dislocation of the distal tibia and talar joint and soft tissue swelling. The f racture was reduced in the ED by orthopedic surgery and she had a temporary cast placed. She was admitted and managed for right ankle fracture due to mechanical fall. She had irrigation and debridement of skin, subcutaneous tissue and bone right ankle laceration and closed reduction and application of right ankle spanning external fixator. Postop course was complicated by poorly controlled pain but that gradually improved. She remained stable and was [facility] to [facility] on [facility]23. She is to follow-up with her primary care doctor and orthopedic surgery within 1 to 2 weeks. Patient had been on Coumadin for A-fib and this was resumed and will serve as DVT prophylaxis also. Patient seen and examined prior to discharge. She felt well and had no complaints. She had an uneventful review of systems otherwise negative. Labs and vitals reviewed. Home medication reviewed and reconciled. Physical Exam Narrative Const alert, oriented x3, no apparent distress and well nourished General Appearance: cooperative HEENT normocephalic, head/scalp atraumatic, hearing grossly normal bilaterally, moist oral mucous membranes and oropharynx normal Eyes PERRL and EOMs intact bilaterally Neck no lymphadenopathy and supple Lymph Lymphatic: no lymphedema noted Resp normal respiratory effort, normal air movement, no retractions, no use of accessory muscles and clear to auscultation bilaterally Cardio regular rate, regular rhythm, S1 normal heart sound, S2 normal heart sound, no murmurs, no rub, no gallops and no clicks GI normal to inspection, nondistended, normoactive bowel sounds, soft to palpation, non-tender and non-distended Extremity normal capillary refill Extremity Narrative: RLE wrapped in bandage. Skin skin turgor normal, no jaundice, no petechiae and no mottling Wound Narrative: as under extremity, with RLE wrapped in bandage. external fixator in place Neuro oriented x3, CN's II-XII intact bilaterally and no focal motor deficits Sensorium / Orientation: awake and alert Speech: speech normal Motor Exam: general weakness Psych thought process normal, cooperative and affect normal Appearance: appropriate Weight / BMI Weight Weight: 186 lb 11.704 oz Body Mass Index (BMI) 35.2 ABG / Lab / Microbiology Data 07/26/23 06:20 07/26/23 06:20 Laboratory: Laboratory Results - last 24 hr 07/26/23 06:20: WBC 3.3 L, RBC 3.68 L, Hgb 10.8 L, Hct 33.0 L, MCV 89.7, MCH 29.3, MCHC 32.7, RDW Std Deviation 41.6, RDW Coeff of Neeru 12.7, Plt Count 150, MPV 11.1, Immature Gran % (Auto) 0.300, Neut % (Auto) 61.7, Lymph % (Auto) 21.6, [place] % (Auto) 12.8 H, Eos % (Auto) 2.7, Baso % (Auto) 0.9, Absolute Neuts (auto) 2.0, Absolute Lymphs (auto) 0.71 L, Nucleated RBC % 0, Sodium 137, Potassium 4.6, Chloride 105, Carbon Dioxide 26.0, Anion Gap 6, BUN 15, Creatinine 0.56, Estim Creat Clear Calc 31.60, Est GFR (MDRD) Af Amer 134, Est GFR (MDRD) Non-Af 111, BUN/Creatinine Ratio 27.0 H, Glucose 99, Calcium 8.5 D/C Instructions Discharge Diet: Low fat / Low cholesterol Discharge Activity: Use Crutches Weight Bearing Status: Partial weight bearing Meaningful Use Info Meaningful Use Diagnoses (Choose all that apply): None applicable Discharge Plan Admission Admit Date/Time: 07/19/23 17:03 Primary Reason for Your Visit: right ankle fracture Attending Provider: Fiona Suazo Primary Care Provider: Rosanne Velazquez Consulting Providers: Jacob Garcia; Shala Chung; Earl Guardado Discharge Orders/Prescriptions Prescriptions: New acetaminophen 500 mg Tablet 1,000 mg PO Q8 Qty: 0 0RF cephalexin 250 mg Capsule 250 mg PO Q6 Qty: 28 0RF oxycodone 5 mg Tablet 5 mg PO Q4H PRN PRN (Reason: Pain Score 4-10) 3 Days Qty: 12 0RF sennosides-docusate sodium [Stool Softener-Stimulant Laxat] 8.6-50 mg Tablet 2 tab PO BID Qty: 0 0RF Continued furosemide [Lasix] 20 mg tablet 60 mg PO DAILY ondansetron 4 mg tablet,disintegrating 4 mg PO Q8H PRN (Reason: NAUSEA/VOMITING ) meclizine 12.5 mg tablet 12.5 mg PO BID Qty: 60 5RF multivitamin Tablet 1 tab PO DAILY omeprazole 40 mg Capsule,Delayed Release(Dr/Ec) 40 mg PO DAILY triamterene-hydrochlorothiazid 37.5-25 mg Capsule 1 cap PO DAILY levothyroxine 75 mcg Tablet 75 mcg PO SUMOTUWETHFR warfarin 5 mg Tablet 5 mg PO DAILY gabapentin 300 mg Capsule 600 mg PO BID cholecalciferol (vitamin D3) [Vitamin D3] 125 mcg (5,000 unit) Tablet 125 mcg PO WE amitriptyline 25 mg tablet 25 mg PO QHS PRN (Reason: DEPRESSION) propafenone 225 mg tablet 225 mg PO TID trazodone 50 mg tablet 50 mg PO DAILY potassium chloride 20 mEq tablet,ER particles/crystals 20 meq PO BID Ptsl-Dasm-Peqt(vit A,C-biotin) 2,500 unit-100 mg-2,500 mcg capsule 1 cap PO DAILY nystatin 100,000 unit/gram cream 1 applic TOPICAL BID Patient Comments: APPLY TOPICALLY 2 TIMES A DAY NEEDED (RASH, ITCHING). APPLY 2-3 TIMES DAILY TO AFFECTED AREA(S). ondansetron HCl 4 mg tablet 4 mg PO Q8H PRN (Reason: nausea and vomiting) Patient Comments: TAKE 1 TABLET (4 MG) BY MOUTH EVERY 8 HOURS IF NEEDED FOR NAUSEA OR VOMITING. triamterene-hydrochlorothiazid 37.5-25 mg tablet 1 tab PO DAILY warfarin [Jantoven] 5 mg tablet 5 mg PO DAILY propafenone [Rythmol SR] 225 mg capsule,extended release 12 hr 225 mg PO Q8 alprazolam 0.5 mg tablet 0.5 mg PO DAILY PRN (Reason: ANXIETY ) 3 Days Qty: 3 0RF Discontinued oxycodone-acetaminophen 5-325 mg tablet 0.5 tab PO BID Patient Comments: NEW RX FILLED AND STARTED ON 07-13-23. FILLED A 7 DAY SUPPLY. Referrals / Follow Up: Jacob Garcia DO [Med Staff - Active Staff] - Within 2 Weeks Rosanne Velazquez PA [Primary Care Provider] - Within 2 Weeks Disposition Disposition (needs filled in before D/C Order can be placed): [facility] Charges/Coding Visit Charges Inpatient E&M: 20990 Disch Hosp >30min
--- NOTE | 2023-07-26 16:12 | CASEMGMT ---
Discharge Planning Discharge orders, signed med list, and transport time sent to [facility] via [facility]. [facility] will transport patient by cot at 5p. Nursing, SW, patient, and her daughter updated. Marie Hayes, Discharge Planning Asst.
== END 2023-07-26 18:35 | disposition skilled nursing facility (03) | DRG 494 ==
LOC: ED 15:51 → MS3 17:30
PROVIDERS: Student in an Organized Health Care Education/Training Program; Admitting Provider Internal Medicine; Emergency Provider Emergency Medicine; PCP Physician Assistant Medical; Visit Provider Student in an Organized Health Care Education/Training Program
PROC: 0QBG0ZZ Excision of Right Tibia, Open Approach (ICD-10-PCS; principal; 2023-07-19 18:30)
DX: S82.851B Displaced trimalleolar fracture of right lower leg, initial encounter for open fracture type I or II (principal); E27.8 Other specified disorders of adrenal gland; I48.91 Unspecified atrial fibrillation; E03.9 Hypothyroidism, unspecified; F32.A Depression, unspecified; M54.50 Low back pain, unspecified; K21.9 Gastro-esophageal reflux disease without esophagitis; E87.6 Hypokalemia; E55.9 Vitamin D deficiency, unspecified; G89.29 Other chronic pain; Z66 Do not resuscitate; R73.9 Hyperglycemia, unspecified; Z79.01 Long term (current) use of anticoagulants
CPT/HCPCS: 36415; 71045; 73600; 73610; 76000; 80048; 80053; 82306; 83036; 83735; 84100; 84443; 85025; 85610; 90715; 93005; 94668; 97110; 97162; 97166; 97530; 97535; 99285; C1713; J7030; J7050; J7120; A4216; J2405

== ENCOUNTER 2023-08-25 15:51 | Observation (INO) | payer MEDICARE, SELFPAY ==
[2023-08-25] VITALS (10 sets, daily range): BP systolic 117–180; BP diastolic 53–75; PULSE 51–63; RESP 16–18; TEMP 36–36.7; O2SAT 18–100; BMI 34.0
[2023-08-25] MEDS: Lactated Ringers 1,000 ML 15 ML IV (11:15)
--- NOTE | 2023-08-25 12:40 | RAD_ITS ---
EXAM: XR Ankle 2 Views INDICATION: Female, 83 years old. Ankle fracture TECHNIQUE: AP and lateral intraoperative fluoroscopy static spot images of the right ankle COMPARISON: 07/19/2023 FINDINGS: There is postoperative change from open reduction internal fixation of a distal tibial fracture with posterior fixation plate and multiple fixation screws in place. There is intraoperative change from open reduction internal fixation of a distal fibular fracture with fixation plate and screws in place. Distal fracture fragments are held in near-anatomic alignment. There is an external fixator tracts through the posterior calcaneus. There is a small plantar calcaneal spur. There is mild enthesopathic change at the calcaneal tendon insertion. Tibiotalar,, intertarsal and tarsometatarsal joints demonstrate mild to moderate diffuse degenerative change. . There is soft tissue defect in the postoperative bed. RAD/Ankle 2 Views IMPRESSION: Postoperative change from open reduction internal fixation of distal tibial and fibular fractures with no evidence of instrumentation failure. Electronically Signed: Adam Rodriguez MD at 0:34 EDT ,
[2023-08-25] MEDS: Cefazolin 2 GM in 0.9% Normal Saline (100mL Bag) 100 ML IV (13:04)
[2023-08-25] MEDS: BACITRACIN/POLYMYXIN B 15 GM Tube 1 APPLIC (15:28)
--- NOTE | 2023-08-25 16:10 | PCM.OPRPT ---
Report of Operation Date of Procedure: 08/25/23 Description of Surgical Findings:: Preoperative diagnosis: Right ankle trimalleolar fracture dislocation, prior open Postoperative diagnosis: Right ankle trimalleolar fracture dislocation, prior open Procedure: 1. Removal of external fixator right ankle 2. Open reduction internal fixation posterior and lateral malleoli right ankle 3. Stress examination under anesthesia right ankle Surgeon: Jacob Garcia DO Anesthesia: General endotracheal with popliteal block Anesthesiologist: Dr. Rivas Complications: None Drains: None Estimated blood loss: 10 cc Urinary output: None recorded IV fluids: 1200 cc crystalloid Specimens: None Surgical implants: Synthes third tubular plate 5 hole, Synthes third tubular plate, 8 hole with combination of cortical and cancellous screws Surgical indications: This is an 83-year-old female who sustained a grade 3 right ankle trimalleolar open fracture dislocation on 07/19/2023. She underwent emergent irrigation and debridement with application of ankle spanning external fixator at that evening with myself. She was discharged to SNF. Her laceration healed well. There were no signs of infection. Given the adequate soft tissues, I recommended a return to the operating room for removal of external fixator and open reduction internal fixation. I reviewed the risks, benefits, alternatives to the procedure. Risks include but are not limited to bleeding, infection, loss of life or limb, risk of anesthesia, risk of nerve block, persistent pain, nonunion, malunion, posttraumatic arthritis, instability, need for additional surgery, failure of orthopedic hardware, persistent limp or need for assistive device. Patient expressed understanding of these risks and wished to proceed. Description of procedure: Patient was seen in preoperative holding area. They were identified by name, medical record number, date of . The operative extremity was marked with a surgical marker. We confirmed informed consent with the patient and all questions were answered to her satisfaction. In the preoperative holding area, a popliteal block was administered by the anesthesia staff. At time of the procedure, patient was brought to the operative suite and positioned supine on her hospital bed. General anesthesia was induced and endotracheal tube placed. We performed timeout with all parties in attendance in agreement with the side, site, operation be performed. No concerns were voiced and we elected proceed with surgery. We then proceeded with removal of the external fixator. Pin sites were prepped with Betadine. External fixator was D constructed. Tibial pins were removed. The lateral portion of the calcaneus transfixion pin was trimmed at the skin level and removed out the medial pin site. We then positioned the patient in the prone position with all bony prominences well padded. A well-padded pneumatic tourniquet was applied to the right upper thigh. We prepped and draped the right lower extremity in normal, sterile orthopedic fashion utilizing a Betadine prep. I then exsanguinated the right lower extremity with an Esmarch bandage. Tourniquet is inflated to 250 mmHg which remained up for approximately 60 minutes. Esmarch was removed. I then planned a standard posterior lateral approach to the ankle. Portis between the Achilles tendon and posterior border of the lateral malleolus, skin was sharply incised with a 15 blade scalpel, approximately 10 cm in length. Dissection was switched to blunt dissection with scissors to identify the sural neurovascular bundle. This was protected throughout the case, it was dissected free and retracted laterally. Flexor houses longus fascia was encountered and opened sharply in line with the incision. FHL muscle belly was then elevated from the posterior malleolus with a periosteal elevator. Fracture was encountered. Early callus was debrided sharply with a 15 blade scalpel. This was irrigated. Fracture was mobilized with a [place] elevator. I utilized a ball spike pusher and hyperdorsiflexion of the foot to achieve a near anatomic reduction of the posterior malleolus. K wires were placed to hold the reduction. I then placed a K wire perpendicular to the fracture site just superior to the articular surface for a partially-threaded 4 oh millimeter cannulated screw. This was drilled for and placed with excellent compression and a washer was attached to the screw for additional cortical purchase given her lackluster bone quality. I then proceeded with antiglide fixation of the posterior malleolus. A 5 hole third tubular plate was placed along the posterior border of the tibia and under contoured. The apical screw was placed with bicortical fixation. This compressed the fracture well. We proceeded with 2 additional cortex screws proximal to the fracture site. A partially-threaded solid cancellous screw was placed in the distal hole of the plate for additional compression. Anatomic articular alignment was achieved. I then turned my attention to the lateral malleolus. Sural neurovascular bundle and peroneal tendons were retracted medially after the peroneal fascia was opened. Fracture was encountered. Callus was debrided with a rongeur and 15 blade scalpel. Length of the fibula was achieved with assistance of lobster-claw clamps. Appropriate length alignment and rotation was confirmed on orthogonal fluoroscopy. I then selected an 8 hole third tubular plate to act as an antiglide plate. The apical screw was placed in the proximal segment with excellent compression across the fracture site. 3 bicortical screws were placed proximal and distal to the fracture site. Final fluoroscopic images were obtained. Medial malleolus was not surgically fixed due to risk of infection and the comminuted nature seen on index procedure. A stress examination was performed of the ankle. External rotation of the ankle demonstrated no syndesmotic widening or excessive talar tilt. The wound was then copiously irrigated with Irrisept solution and subsequent saline solution. Tourniquet was deflated. Hemostasis was achieved with Bovie cautery. Skin was then reapproximated with buried intradermal 2-0 Vicryl suture. Skin was finally reapproximated with interrupted simple 3-0 nylon suture. Pin sites were debrided with a curette and thoroughly irrigated. Bacitracin ointment was placed in the pin sites. Bulky sterile compression dressing was applied. A well-padded 3 sided AO type fiberglass splint was applied and molded in maximal dorsiflexion. Patient was then repositioned in the supine position and safely extubated in the operative suite. She tolerated the procedure well without apparent complication. Need for skilled assistant federal public defender: Liss Whelan PA-C was critical to the outcome of the case. During the course of the procedure the physician assistant federal public defender played a vital role. Her intimate knowledge of my steps in the procedure aided in safe and expedient completion of the procedure. The PA played a vital role in positioning particularly in obtaining the appropriate positioning. The PA was also vital in the retraction of soft tissues during the exposure and protecting vital structures. The PA was also vital and obtaining fracture reduction and assisting with hardware placement. She also played a vital role in closure and splint application with my direct supervision. Post Operative Plan: Weightbearing: Nonweightbearing operative extremity Antibiotics: 2 g Ancef x 1 dose preoperatively, 24 hours IV antibiotics. Plan for discharge on oral antibiotics x2 weeks given the history of grade 3 open fracture. DVT Prophylaxis: Restart home Eliquis tomorrow Black: None Dressing: Maintain splint, keep it clean dry and intact until follow-up X-Rays: 2 weeks postop in the office Pain Medication: Percocet Rx upon discharge Follow-up: 2 weeks post-operatively with me in the office
--- NOTE | 2023-08-25 16:11 | NURSING ---
PULSE OX READING 92% 2LNC APPLIED.
--- NOTE | 2023-08-25 18:34 | PCM.CONS.GEN ---
Assessment & Plan Assessment/Plan (1) Hypertension: QUALIFIERS: Hypertension type: primary hypertension Qualified Code(s): I10 - Essential (primary) hypertension (2) Atrial fibrillation: QUALIFIERS: Atrial fibrillation type: paroxysmal Qualified Code(s): I48.0 - Paroxysmal atrial fibrillation PLAN: Plan 1. Medical management of patient with chronic atrial fibrillation and essential hypertension after recent removal of external fixator of the right ankle-patient will be restarted on her home medications if it is okay with Dr. Garcia. She appears to be clinically stable and her vital signs are good at this time. 2. DVT prophylaxis as per the orthopedic team. Total time: Approximately 40 minutes. HPI Consult Data Date of Consult: 08/30/23 HPI Narrative Reason for Consultation: Medical management HPI Narrative: RACHEL DUONG, is a 83 F who presents to [facility] to undergo external fixator hardware removal from her right ankle by Dr. Garcia of orthopedic surgery. Since this patient has a past medical history of essential hypertension, chronic atrial fibrillation on Eliquis and propafenone, hypothyroidism, GERD and osteoarthritis the hospitalist service was consulted to assist with her medical management postoperatively. The patient is not a fully reliable historian at this time as she is in the PACU after recent anesthesia so she cannot give a detailed response to questions other than that she is having significant GI upset with nausea but no vomiting. She denies other significant complaints at this time and her vital signs are stable. We will follow along with the orthopedic service. Thank you for allowing us to participate in the care of your patient. [facility] Medical History (Updated 08/26/23 @ 11:55 by XANDER Sommers) Adrenal nodule Alcohol use Anxiety Arthritis Atrial fibrillation Back pain Bladder disease Breast cancer Cardiology follow-up encounter Chronic ulcer of right leg with fat layer exposed Gastric reflux History of echocardiogram History of edema History of IBS History of steroid therapy History of stress test Hx of fracture of ankle Hypertension Immunization, tetanus-diphtheria Lives in usp Non-smoker Open ankle fracture Open trimalleolar fracture of right ankle Post-menopausal Shortness of breath on exertion Thyroid disease Tinea unguium Uses wheelchair Wears dentures Wears glasses Wears hearing aid Medical History unable to obtain unable to obtain Home Medications cholecalciferol (vitamin D3) 125 mcg (5,000 unit) tablet (Vitamin D3) 125 mcg PO WE SUPPLEMENT 05/05/22 [History Last Taken 07/13/23] gabapentin 300 mg capsule 600 mg PO BID NEUROPATHY 05/05/22 [History Last Taken 07/18/23] levothyroxine 75 mcg tablet 75 mcg PO SUMOTUWETHFR THYROID 05/05/22 [History Last Taken 07/18/23] multivitamin 1 tab PO DAILY HEALTH MAINTENANCE 05/05/22 [History Last Taken 07/18/23] omeprazole 40 mg capsule,delayed release 40 mg PO DAILY ACID REFLUX 05/05/22 [History Last Taken 07/19/23] triamterene 37.5 mg-hydrochlorothiazide 25 mg capsule 1 cap PO DAILY BLOOD PRESSURE 05/05/22 [History Last Taken 07/18/23] furosemide 20 mg tablet (Lasix) 20 mg PO DAILY FLUID 07/18/23 [History Last Taken 07/18/23] meclizine 12.5 mg tablet 12.5 mg PO BID DIZZINESS #60 tabs 07/18/23 [Rx Last Taken Unknown] propafenone 225 mg tablet 225 mg PO TID AFIB 07/18/23 [History Last Taken 07/19/23] potassium chloride 20 mEq tablet,extended release(part/cryst) 20 meq PO BID SUPPLEMENT 07/19/23 [History Last Taken 07/19/23] trazodone 50 mg tablet 50 mg PO QHS DEPRESSION 07/19/23 [History Last Taken 07/18/23] vitamin A 2,500 unit-vit C 100 mg-biotin 2,500 uuv-gbvm-nvzfps capsule (Ugto-Djdr-Rpco (vit A,P-xzgmrk-Ay-Cu)) 1 cap PO DAILY SUPPLEMENT 07/19/23 [History Last Taken 07/18/23] nystatin 100,000 unit/gram topical cream 1 applic topical BID yeast infection 07/20/23 [History Last Taken 07/19/23] sennosides 8.6 mg-docusate sodium 50 mg tablet (Stool Softener-Stimulant Laxative) 2 tab PO BID #0 tabs 07/22/23 [Rx Last Taken Unknown] apixaban 2.5 mg tablet 2.5 mg PO BID 08/17/23 [History Last Taken Unknown] cephalexin 500 mg capsule 500 mg PO .4 times a day 10 days #40 caps 08/26/23 [Rx Last Taken Unknown] oxycodone-acetaminophen 5 mg-325 mg tablet 1 - 2 tab PO Q6H PRN PRN Mod-severe pain (scale 6-10) 7 days #60 tabs 08/26/23 [Rx Last Taken Unknown] Allergy/AdvReac Type Severity Reaction Status Date / Time Kdevusr-DUX-TaN Reductase AdvReac Severe Muscle Pain Verified 08/17/23 09:17 Inhibitor tramadol [From Ultram] AdvReac Severe Other Verified 08/17/23 09:17 Family History Other Hypertension unable to obtain Surgical History History of back surgery Hx laparoscopic cholecystectomy Hx of colonoscopy Hx of hysterectomy S/P bilateral mastectomy Status post bilateral knee 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 Social History Smoking Status: Never smoker alcohol intake: never substance use type: does not use ROS Review of Systems ROS Unobtainable: due to mental condition and other Details: Patient is in PACU and is confused after recent anesthesia. Constitutional Constitutional: Reports malaise Gastrointestinal Gastrointestinal: Reports nausea Musculoskeletal Musculoskeletal: Reports arthralgias and myalgias Psychiatric Psychiatric: Reports anxiety Physical Exam Const alert and no apparent distress Constitutional Narrative: Patient is mildly lethargic after recent anesthesia. General Appearance: cooperative Orientation / Consciousness: confused and lethargic HEENT normocephalic, head/scalp atraumatic, hearing grossly normal bilaterally and moist oral mucous membranes Eyes PERRL, EOMs intact bilaterally and conjunctivae normal Neck no lymphadenopathy Resp normal respiratory effort, no retractions, no use of accessory muscles and clear to auscultation bilaterally Cardio Cardio Narrative: Irregular rhythm. GI normal to inspection, nondistended, normoactive bowel sounds, soft to palpation, non-tender and non-distended Extremity Extremity Narrative: Evidence of recent right ankle surgery with dressing in place. Neuro Sensorium / Orientation: awake, alert, oriented to person and oriented to place Speech: speech normal Psych Mood & Affect: anxious Medical Records Data Attestation: I reviewed the patient's medical records Lab / Micro Data Attestation: I reviewed the patient's lab results. 08/26/23 05:30 08/27/23 08:35 Charges/Coding Visit Charges Inpatient E&M: 86473 Init Hosp L1
[2023-08-25] MEDS: Cefazolin 1 GM/50 ML BAG IV (19:51)
[2023-08-25] MEDS: Senna/Docusate Sodium 1 Tablet 2 TABLET PO (21:50)
[2023-08-25] MEDS: Gabapentin 300 MG Capsule 600 MG PO (21:50)
[2023-08-25] MEDS: Potassium Chloride Oral Tablet 20 MEQ PO (21:50)
[2023-08-25] MEDS: Propafenone 150 MG Tablet 225 MG PO (21:51)
[2023-08-25] MEDS: traZODone 50 MG Tablet PO (21:51)
[2023-08-25] MEDS: Meclizine 12.5 MG Tablet PO (21:51)
[2023-08-25] MEDS: Oxycodone/Apap 5/325 Tablet PO ×2 (22:41→23:47)
[2023-08-26] VITALS (8 sets, daily range): BP systolic 97–130; BP diastolic 45–54; PULSE 54–72; RESP 16–18; TEMP 36.5–37; O2SAT 94–99
[2023-08-26] MEDS: Cefazolin 1 GM/50 ML BAG IV (05:34)
[2023-08-26] MEDS: Propafenone 150 MG Tablet 225 MG PO ×3 (05:36→22:03)
[2023-08-26] MEDS: Levothyroxine 75 MCG Tablet PO (05:37)
[2023-08-26 07:09] LABS: Absolute Lymphocyte Count 0.51 X10^3/uL (0.83-4.51); Basophil# 0.02 X10^3/uL; Basophil% 0.4 % (0-1); Hematocrit 36.7 % (37-47); Hemoglobin 12.1 g/dL (12.0-15.0); Lymphocyte # 0.51 X10^3/ul (0.83-4.51); Lymphocyte % 10.1 % (19-41); Mean Corpuscular Hgb 29.8 pg (27.0-32.0); Mean Corpuscular Volume 90.4 fL (81-99); Mean Platelet Vol. 11.3 fl (6.2-12.0); Monocyte# 0.51 X10^3/uL; Monocyte% 10.1 % (0-10); NRBC Flagged by Analyzer 0 % (0-5); Neutrophil # 3.99 X10^3/uL (2.7-7.7); Neutrophil % 79.2 % (47-70); POSITIVE DIFFERENTIAL YES; Platelet Count 201 K/mm3 (150-450); RBC Distribution Width CV 12.3 % (11.6-14.6); RBC Distribution Width SD 40.5 fl (35.1-43.9); Red Blood Count 4.06 M/mm3 (4.2-5.4)
--- NOTE | 2023-08-26 07:21 | PCM.PN.HOSP ---
Subjective Subjective Follow-up for trimalleolar ankle fracture which required open reduction. Objective Data Objective Data Vital Signs: Vital Signs Temp Pulse Resp BP Pulse Ox O2 Del Method O2 Flow Rate 98.2 F 56 L 16 130/45 H 99 Nasal Cannula 2 08/26/23 05:15 08/26/23 05:32 08/26/23 05:15 08/26/23 05:15 08/26/23 05:15 08/26/23 05:15 08/26/23 05:15 Oxygen Flow Rate (L/min) 2 Oxygen Delivery Method Nasal Cannula Weight: 180 lb Body Mass Index (BMI) 34.0 Intake & Output: Intake and Output for Last 24 Hours 08/24/23 08/25/23 08/26/23 23:59 23:59 23:59 Intake Total 1280 / 1680 650 / 650 Output Total 400 / 400 Balance 1280 / 1680 250 / 250 Lab / Micro Data 08/26/23 05:30 08/26/23 05:30 Radiography Diagnostic Testing: Radiology Impression Ankle X-Ray 08/25/23 12:40 IMPRESSION: Postoperative change from open reduction internal fixation of distal tibial and fibular fractures with no evidence of instrumentation failure. Electronically Signed: Adam Rodriguez MD at 0:34 EDT , Physical Exam Narrative Patient is stated she had A-fib about 15?20 years ago and no chest pain or shortness of breath. She was seen and admitted in ICU but after that it was controlled and never bothered her. Physical exam General: Alert, Oriented x3, Cooperative HEENT: Atraumatic, PERRLA, EOMI, Normocephalic Oral: Oral mucosa moist. No Gingival or Mucosal Lesions/ Ulcerations Neck: Supple, No JVD, Negative Carotid Bruits Lungs: Air entry diminished in bilateral lung bases. No crepitation/rhonchi Cardiovascular: Regular rate, Regular Rhythm, Normal S1, Normal S2, No murmurs Abdomen: Bowel Sounds Present, Soft, Non Tender, Non-Distended : No renal angle tenderness. No suprapubic tenderness. Extremities: No edema, Capillary Refill Less than 3 Seconds Skin: No rashes, No breakdown Musculoskeletal: Right ankle with bandage and Fernando wrap below knee. No Tenderness to Palpation of other joints or Extremities Neurological: Cranial nerves II-XII grossly intact, DTR 2+/4. No acute focal neurological deficit. Psych/Mental Status: Normal Affect, Appropriate. Assessment & Plan Assessment/Plan (1) Atrial fibrillation: QUALIFIERS: Atrial fibrillation type: paroxysmal Qualified Code(s): I48.0 - Paroxysmal atrial fibrillation (2) Hypertension: QUALIFIERS: Hypertension type: primary hypertension Qualified Code(s): I10 - Essential (primary) hypertension PLAN: Plan 1. Paroxysmal atrial fibrillation: [facility] Clinically pulses are regular. Last EKG from 19 July 2023 shows sinus bradycardia 58 bpm, first-degree AV block, low voltage QRS, QTc 443 ms. No acute issues like chest pain or shortness of breath. 2. essential hypertension after recent removal of external fixator of the right ankle-the. Patient is started on home medications. She appears to be clinically stable and her vital signs are good at this time. 2. Trimalleolar fracture of right ankle status post open fixation: Patient had procedure for removal of external fixator with open reduction internal fixation of posterior and lateral malleoli of right ankle. DVT prophylaxis as per the orthopedic team. Charges/Coding Visit Charges Inpatient E&M: 25285 Subs Hosp L2
[2023-08-26 07:26] LABS: Differential Indicated SCAN CRITERIA MET
[2023-08-26 07:40] LABS: Anion Gap 7 (5-15); BUN 12 mg/dL (7-18); BUN/Creat Ratio 21.7 RATIO (10-20); Calcium,Total 8.8 mg/dL (8.5-10.1); Chloride 92 mmol/L (98-107); Creatinine, Serum 0.55 mg/dL (0.55-1.02); EST Glomerular Filtration Rate 111 mL/min (>60); Est Glom Filt Rate - Afr Amer 134 mL/min (>60); Glucose 108 mg/dL (74-106); Potassium 3.7 mmol/L (3.5-5.1); Sodium Level 131 mmol/L (136-145)
[2023-08-26 08:23] LABS: Differential Comment SCANNED
[2023-08-26] MEDS: Meclizine 12.5 MG Tablet PO ×2 (09:04→22:03)
[2023-08-26] MEDS: Gabapentin 300 MG Capsule 600 MG PO ×2 (09:04→22:03)
[2023-08-26] MEDS: Furosemide 20 MG Tablet PO (09:04)
[2023-08-26] MEDS: APIXABAN 2.5 MG TABLET (WCH) PO ×2 (09:04→22:06)
[2023-08-26] MEDS: Senna/Docusate Sodium 1 Tablet 2 TABLET PO ×2 (09:04→22:05)
[2023-08-26] MEDS: Pantoprazole Sodium 40 MG Tablet PO (09:04)
[2023-08-26] MEDS: Potassium Chloride Oral Tablet 20 MEQ PO ×2 (09:04→22:05)
--- NOTE | 2023-08-26 10:21 | CASEMGMT ---
Social work Pt is admitted from [facility]. SW met with pt and introduced self and role of SW. Pt confirms that she has been at [facility] since her last surgery and plans to return to [facility] upon discharge. DC medical assistant dermatology updated and to send clinical information. Pt will need precert to return to [facility]. Precert to be started at this time. Plan: [facility], pending precert JOSE DANIEL Morley
--- NOTE | 2023-08-26 10:38 | CASEMGMT ---
Discharge Planning Updates sent to [facility] and asked for precert to be submitted. Marie Hayes, Discharge Planning Asst.
--- NOTE | 2023-08-26 11:43 | PCM.PN.ORT ---
Subjective Subjective patient is s/p removal of external fixator , and subsequent ORIF right trimalleolar fracture with spittle. 08/25/2023. Patient resting comfortably in bed. Rates pain 6/ 10 at rest. With movement 6/10. States taking Percocet as needed and ice help to relieve pain. Patient has been up with therapy. Walking with the assit of a walker. Afebrile, no chest pain, shortness of breath, negative calf pain/ erythema, and no other signs of DVT. Objective Data Objective Data Vital Signs: Vital Signs Temp Pulse Resp BP Pulse Ox O2 Del Method O2 Flow Rate 97.7 F L 58 L 18 107/47 L 98 Room Air 2 08/26/23 08:44 08/26/23 08:44 08/26/23 08:44 08/26/23 08:44 08/26/23 08:44 08/26/23 08:44 08/26/23 05:15 Oxygen Flow Rate (L/min) 2 Oxygen Delivery Method Room Air Weight: 81.647 kg Body Mass Index (BMI) 34.0 Intake & Output: Intake and Output for Last 24 Hours 08/24/23 08/25/23 08/26/23 23:59 23:59 23:59 Intake Total 1280 / 1680 650 / 650 Output Total 400 / 400 Balance 1280 / 1680 250 / 250 Lab / Micro Data 08/26/23 05:30 08/26/23 05:30 Labs: Laboratory Results - last 24 hr 08/26/23 05:30: WBC 5.0, RBC 4.06 L, Hgb 12.1, Hct 36.7 L, MCV 90.4, MCH 29.8, MCHC 33.0, RDW Std Deviation 40.5, RDW Coeff of Neeru 12.3, Plt Count 201, MPV 11.3, Immature Gran % (Auto) 0.200, Neut % (Auto) 79.2 H, Lymph % (Auto) 10.1 L, [place] % (Auto) 10.1 H, Eos % (Auto) 0.0, Baso % (Auto) 0.4, Absolute Neuts (auto) 4.0, Absolute Lymphs (auto) 0.51 L, Nucleated RBC % 0, Differential Comment SCANNED, Sodium 131 L, Potassium 3.7, Chloride 92 L, Carbon Dioxide 32.0, Anion Gap 7, BUN 12, Creatinine 0.55, Estim Creat Clear Calc 31.60, Est GFR (MDRD) Af Amer 134, Est GFR (MDRD) Non-Af 111, BUN/Creatinine Ratio 21.7 H, Glucose 108 H, Calcium 8.8 Radiography Diagnostic Testing: Radiology Impression Ankle X-Ray 08/25/23 12:40 IMPRESSION: Postoperative change from open reduction internal fixation of distal tibial and fibular fractures with no evidence of instrumentation failure. Electronically Signed: Adam Rodriguez MD at 0:34 EDT , Physical Exam Narrative Patient resting comfortably in bed No signs of acute distress Satting well on room air Splint is intact Visible skin intact Cap refill less than 3 seconds Able to wiggle all toes Limb is warm to touch, Sensation intact throughout entire lower extremity Assessment & Plan Assessment/Plan (1) Trimalleolar fracture of right ankle: PLAN: Status post removal of external fixator and ORIF right trimalleolus fracture 1. Patient is postop day 1 today. Okay for therapy. Nonweightbearing to right lower extremity. 2. plan for discharge [facility] when [facility]. Cleared from a medical and orthopedic standpoint at this time. 3. Patient will follow up for post op appointment in 2 weeks with [facility] for x-rays and incision check. 4. Maintain splint at all times . cannot get wet. 5. DVT prophylaxis : Eliquis 2.5 mg twice daily 6. Pain control: Percocet every 4-6 hours as needed for pain. 7. Will discharge patient antibiotics keflex 500mg 4 times daily x10 days postop due to history of open fracture.
--- NOTE | 2023-08-26 11:51 | PCM.TXEXTCAR ---
Diet Diet Order/Speech Therapy: 08/26/23 06:11 Diet: Regular - General Is pt able to select menu?: Yes Wound(s) RIGHT ANKLE: Wound Type: Surgical Incision Dressing Change: none. maintain splint at all times Therapies Weight Bearing: Non weight bearing Extremity Affected:: Right Lower Physical Therapy: Eval and Treat Occupational Therapy: Eval and Treat Problem/Diagnosis (1) Trimalleolar fracture of right ankle: Status: Acute Code(s): S82.851A - Displaced trimalleolar fracture of right lower leg, initial encounter for closed fracture Plan: Status post removal of external fixator and ORIF right trimalleolus fracture 1. Patient is postop day 1 today. Okay for therapy. Nonweightbearing to right lower extremity. 2. plan for discharge to long-term facility when accepted. Cleared from a medical and orthopedic standpoint at this time. 3. Patient will follow up for post op appointment [facility] and incision check. 4. Maintain splint at all times 5. DVT prophylaxis : Eliquis 2.5 mg twice daily 6. Pain control: Percocet every 4-6 hours as needed for pain. 7. Will discharge patient antibiotics keflex 500mg 4 times daily x10 days postop due to history of open fracture. Allergies/Procedures Done in Hospital Allergies Lymlvjj-HAE-KpV Reductase Inhibitor Adverse Reaction (Severe, Verified 08/17/23 09:17) Muscle Pain tramadol [From Ultram] Adverse Reaction (Severe, Verified 08/17/23 09:17) Other HALLUCINATIONS Type of Care/Length of Stay Estimated LOS: Convalescent Care Less Than 30 days Type of Care Needed: Skilled Rehab Potential: Good Prognosis: Good Additional Orders/Day of Discharge Day of Discharge: 08/26/23 Follow Up Care When: [facility] in 2 weeks post op . Discharge Plan Admission Admit Date/Time: 08/25/23 15:51 Attending Provider: Jacob Garcia Primary Care Provider: Rosanne Velazquez Consulting Providers: Isaac Lares Discharge Orders/Prescriptions Prescriptions: New oxycodone-acetaminophen 5-325 mg Tablet 1 - 2 tab PO Q6H PRN PRN (Reason: Mod-severe pain (scale 6-10)) 7 Days Qty: 60 0RF cephalexin 500 mg capsule 500 mg PO .4 times a day 10 Days Qty: 40 0RF Continued furosemide [Lasix] 20 mg tablet 20 mg PO DAILY meclizine 12.5 mg tablet 12.5 mg PO BID Qty: 60 5RF multivitamin Tablet 1 tab PO DAILY omeprazole 40 mg Capsule,Delayed Release(Dr/Ec) 40 mg PO DAILY triamterene-hydrochlorothiazid 37.5-25 mg Capsule 1 cap PO DAILY levothyroxine 75 mcg Tablet 75 mcg PO SUMOTUWETHFR gabapentin 300 mg Capsule 600 mg PO BID cholecalciferol (vitamin D3) [Vitamin D3] 125 mcg (5,000 unit) Tablet 125 mcg PO WE propafenone 225 mg tablet 225 mg PO TID trazodone 50 mg tablet 50 mg PO QHS potassium chloride 20 mEq tablet,ER particles/crystals 20 meq PO BID Aqmp-Pqje-Bffc(vit A,C-biotin) 2,500 unit-100 mg-2,500 mcg capsule 1 cap PO DAILY nystatin 100,000 unit/gram cream 1 applic TOPICAL BID Patient Comments: APPLY TOPICALLY 2 TIMES A DAY NEEDED (RASH, ITCHING). APPLY 2-3 TIMES DAILY TO AFFECTED AREA(S). apixaban 2.5 mg tablet 2.5 mg PO BID Discontinued acetaminophen 500 mg Tablet 1,000 mg PO Q8 Qty: 0 0RF No Action sennosides-docusate sodium [Stool Softener-Stimulant Laxat] 8.6-50 mg Tablet 2 tab PO BID Qty: 0 0RF Referrals / Follow Up: Rosanne Velazquez PA [Primary Care Provider] - Disposition Disposition (needs filled in before D/C Order can be placed): [facility]
--- NOTE | 2023-08-26 11:59 | DCINST_ITS ---
Discharge Instructions Diet Discharge Diet: No restrictions Activity Discharge Activity: May Shower (splint cannot get wet. need to bag, or sponge bath) Weight Bearing Status: No weight bearing (right lower extremity) Keep extremity elevated above heart level: Operative Extremity Dressing / Incision Call your doctor if your incision/area has: Continuous Slow Oozing, Sudden Incr eased Bleeding, Increased Pain/ Swelling, Increased Redness, Foul Smelling Discharge and Swelling at the incision site Call your doctor if you observe: Fever of 101 or Higher, Dizziness, Chest pain and Calf discomfort Change Dressing in: leave in place till F/U Remove Dressing in: leave in place till F/U Cleanse incision/area with: Do not get Incision Wet (do not get splint wet) Follow Up Care When: follow up with [facility] in 2 weeks post op. Test Results: Test results from this visit will be discussed in further detail at your follow- up appointment, if applicable. Discharge Plan Admission Admit Date/Time: 08/25/23 15:51 Attending Provider: Jacob aGrcia Primary Care Provider: Rosanne Velazquez Consulting Providers: Isaac Lares Discharge Orders/Prescriptions Prescriptions: New oxycodone-acetaminophen 5-325 mg Tablet 1 - 2 tab PO Q6H PRN PRN (Reason: Mod-severe pain (scale 6-10)) 7 Days Qty: 60 0RF cephalexin 500 mg capsule 500 mg PO .4 times a day 10 Days Qty: 40 0RF Continued furosemide [Lasix] 20 mg tablet 20 mg PO DAILY meclizine 12.5 mg tablet 12.5 mg PO BID Qty: 60 5RF multivitamin Tablet 1 tab PO DAILY omeprazole 40 mg Capsule,Delayed Release(Dr/Ec) 40 mg PO DAILY triamterene-hydrochlorothiazid 37.5-25 mg Capsule 1 cap PO DAILY levothyroxine 75 mcg Tablet 75 mcg PO SUMOTUWETHFR gabapentin 300 mg Capsule 600 mg PO BID cholecalciferol (vitamin D3) [Vitamin D3] 125 mcg (5,000 unit) Tablet 125 mcg PO WE propafenone 225 mg tablet 225 mg PO TID trazodone 50 mg tablet 50 mg PO QHS potassium chloride 20 mEq tablet,ER particles/crystals 20 meq PO BID Nxuu-Lmze-Bzpg(vit A,C-biotin) 2,500 unit-100 mg-2,500 mcg capsule 1 cap PO DAILY nystatin 100,000 unit/gram cream 1 applic TOPICAL BID Patient Comments: APPLY TOPICALLY 2 TIMES A DAY NEEDED (RASH, ITCHING). APPLY 2-3 TIMES DAILY TO AFFECTED AREA(S). apixaban 2.5 mg tablet 2.5 mg PO BID Discontinued acetaminophen 500 mg Tablet 1,000 mg PO Q8 Qty: 0 0RF No Action sennosides-docusate sodium [Stool Softener-Stimulant Laxat] 8.6-50 mg Tablet 2 tab PO BID Qty: 0 0RF Referrals / Follow Up: Rosanne Velazquez PA [Primary Care Provider] - Disposition Disposition (needs filled in before D/C Order can be placed): Shelter Facility
--- NOTE | 2023-08-26 13:20 | CASEMGMT ---
Discharge Planning PT/OT evals sent to [facility] via [facility]. Marie Hayes, Discharge Planning Asst.
[2023-08-26] MEDS: Oxycodone/Apap 5/325 Tablet PO ×2 (13:45→20:11)
--- NOTE | 2023-08-26 15:42 | CASEMGMT ---
Met with patient to complete PURCELL form. PURCELL form explained to patient who voiced understanding and signed form. Original form placed in pt?s chart and copy provided to?patient. Marie Hayes, Discharge Planning Asst
[2023-08-26] MEDS: traZODone 50 MG Tablet PO (22:03)
[2023-08-27] MEDS: Propafenone 150 MG Tablet 225 MG PO ×3 (05:38→20:09)
[2023-08-27] MEDS: Oxycodone/Apap 5/325 Tablet PO ×2 (05:42→14:52)
[2023-08-27 05:44] VITALS: BP 123/59; PULSE 65; RESP 18; TEMP 36.6; O2SAT 94
[2023-08-27 07:12] VITALS: O2SAT 95
[2023-08-27 08:00] VITALS: BP 118/47; PULSE 69; RESP 18; TEMP 36.4; O2SAT 97
[2023-08-27] MEDS: Multivitamins,Therapeutic Tablet 1 TABLET PO (08:34)
[2023-08-27 09:36] LABS: Anion Gap 7 (5-15); BUN 14 mg/dL (7-18); BUN/Creat Ratio 21.8 RATIO (10-20); Chloride 97 mmol/L (98-107); Creatinine, Serum 0.64 mg/dL (0.55-1.02); EST Glomerular Filtration Rate 94 mL/min (>60); Est Glom Filt Rate - Afr Amer 113 mL/min (>60); Glucose 93 mg/dL (74-106); Potassium 3.8 mmol/L (3.5-5.1); Sodium Level 134 mmol/L (136-145)
--- NOTE | 2023-08-27 09:53 | PCM.PN.HOSP ---
Reason for Visit Reason for Visit: Diagnoses Other acute postprocedural pain (08/25/23) Essential (primary) hypertension (08/25/23) Paroxysmal atrial fibrillation (08/25/23) Displaced trimalleolar fracture of right lower leg, initial encounter for closed fracture (08/25/23) Objective Data Objective Data Vital Signs: Vital Signs Temp Pulse Resp BP Pulse Ox O2 Del Method O2 Flow Rate 98 F 65 18 123/59 H 95 Room Air 2 08/27/23 05:44 08/27/23 05:44 08/27/23 05:44 08/27/23 05:44 08/27/23 07:12 08/27/23 07:12 08/26/23 05:15 Oxygen Flow Rate (L/min) 2 Oxygen Delivery Method Room Air Weight: 180 lb Body Mass Index (BMI) 34.0 Intake & Output: Intake and Output for Last 24 Hours 08/25/23 08/26/23 08/27/23 23:59 23:59 23:59 Intake Total 1280 / 1680 770 / 1120 470 / 470 Output Total 1500 / 1500 600 / 600 Balance 1280 / 1680 -730 / -380 -130 / -130 Lab / Micro Data 08/26/23 05:30 08/27/23 08:35 Labs: Laboratory Results - last 24 hr 08/27/23 08:35: Sodium 134 L, Potassium 3.8, Chloride 97 L, Carbon Dioxide 30.0, Anion Gap 7, BUN 14, Creatinine 0.64, Estim Creat Clear Calc 31.60, Est GFR (MDRD) Af Amer 113, Est GFR (MDRD) Non-Af 94, BUN/Creatinine Ratio 21.8 H, Glucose 93, Calcium 9.0 Physical Exam Narrative Patient is stated she had A-fib about 35 years ago and no chest pain or shortness of breath. She states he never got a A-fib episode after that. She was seen and admitted in ICU but after that it was controlled and never bothered her. Physical exam General: Alert, Oriented x3, Cooperative HEENT: Atraumatic, PERRLA, EOMI, Normocephalic Oral: Oral mucosa moist. No Gingival or Mucosal Lesions/ Ulcerations Neck: Supple, No JVD, Negative Carotid Bruits Lungs: Air entry diminished in bilateral lung bases. No crepitation/rhonchi Cardiovascular: Regular rate, Regular Rhythm, Normal S1, Normal S2, No murmurs Abdomen: Bowel Sounds Present, Soft, Non Tender, Non-Distended : No renal angle tenderness. No suprapubic tenderness. Extremities: No edema, Capillary Refill Less than 3 Seconds Skin: No rashes, No breakdown Musculoskeletal: Right ankle with bandage and Fernando wrap below knee. No Tenderness to Palpation of other joints or Extremities Neurological: Cranial nerves II-XII grossly intact, DTR 2+/4. No acute focal neurological deficit. Psych/Mental Status: Normal Affect, Appropriate. Assessment & Plan Assessment/Plan (1) Atrial fibrillation: QUALIFIERS: Atrial fibrillation type: paroxysmal Qualified Code(s): I48.0 - Paroxysmal atrial fibrillation (2) Hypertension: QUALIFIERS: Hypertension type: primary hypertension Qualified Code(s): I10 - Essential (primary) hypertension PLAN: Plan 1. Paroxysmal atrial fibrillation: [facility] Clinically pulses are regular. Last EKG from 19 July 2023 shows sinus bradycardia 58 bpm, first-degree AV block, low voltage QRS, QTc 443 ms. No acute issues like chest pain or shortness of breath. 08/27: Patient is medically stable. At this time hospitalist team will sign off. Call the hospitalist team if further questions. 2. essential hypertension after recent removal of external fixator of the right ankle-the. Patient is started on home medications. She appears to be clinically stable and her vital signs are good at this time. 08/27: Blood pressure and heart rate normal. Continue home medications. 2. Trimalleolar fracture of right ankle status post open fixation: Patient had procedure for removal of external fixator with open reduction internal fixation of posterior and lateral malleoli of right ankle. DVT prophylaxis as per the orthopedic team. Charges/Coding Visit Charges Inpatient E&M: 90939 Subs Hosp L2
[2023-08-27] MEDS: Meclizine 12.5 MG Tablet PO ×2 (10:22→20:09)
[2023-08-27] MEDS: Pantoprazole Sodium 40 MG Tablet PO (10:22)
[2023-08-27] MEDS: Senna/Docusate Sodium 1 Tablet 2 TABLET PO ×2 (10:22→20:09)
[2023-08-27] MEDS: Potassium Chloride Oral Tablet 20 MEQ PO ×2 (10:23→20:10)
[2023-08-27] MEDS: Furosemide 20 MG Tablet PO (10:23)
[2023-08-27] MEDS: Triamterene 37.5MG/Hctz 25MG Capsule 1 CAP PO (10:24)
[2023-08-27] MEDS: Gabapentin 300 MG Capsule 600 MG PO ×2 (10:27→20:16)
[2023-08-27] MEDS: APIXABAN 2.5 MG TABLET (WCH) PO ×2 (10:27→20:15)
--- NOTE | 2023-08-27 13:51 | PN.ORTHO_ITS ---
Subjective Subjective patient is POD2 s/p removal of external fixator , and subsequent ORIF right trimalleolar fracture with spittle. 08/25/2023. Patient resting comfortably in bed. Rates pain 6/ 10 at rest. With movement 6/10. States taking Percocet as needed and ice help to relieve pain. Patient has been up with therapy. Walking with the assit of a walker. Afebrile, no chest pain, shortness of breath, negative calf pain/ erythema, and no other signs of DVT patient has been cleared by medicine and orthopedics awaiting precertification for insurance for return to previous detention.. Objective Data Objective Data Vital Signs: Vital Signs Temp Pulse Resp BP Pulse Ox O2 Del Method O2 Flow Rate 97.6 F L 69 18 118/47 L 97 Room Air 2 08/27/23 08:00 08/27/23 08:00 08/27/23 08:00 08/27/23 08:00 08/27/23 08:00 08/27/23 09:00 08/26/23 05:15 Oxygen Flow Rate (L/min) 2 Oxygen Delivery Method Room Air Weight: 81.647 kg Body Mass Index (BMI) 34.0 Intake & Output: Intake and Output for Last 24 Hours 08/25/23 08/26/23 08/27/23 23:59 23:59 23:59 Intake Total 1280 / 1680 770 / 1120 470 / 470 Output Total 1500 / 1500 600 / 600 Balance 1280 / 1680 -730 / -380 -130 / -130 Lab / Micro Data 08/26/23 05:30 08/27/23 08:35 Labs: Laboratory Results - last 24 hr 08/27/23 08:35: Sodium 134 L, Potassium 3.8, Chloride 97 L, Carbon Dioxide 30.0, Anion Gap 7, BUN 14, Creatinine 0.64, Estim Creat Clear Calc 31.60, Est GFR (MDRD) Af Amer 113, Est GFR (MDRD) Non-Af 94, BUN/Creatinine Ratio 21.8 H, Glucose 93, Calcium 9.0 Physical Exam Narrative Patient resting comfortably in bed No signs of acute distress Satting well on room air Splint is intact Visible skin intact Cap refill less than 3 seconds Able to wiggle all toes Limb is warm to touch, Sensation intact throughout entire lower extremity Assessment & Plan Assessment/Plan (1) Trimalleolar fracture of right ankle: PLAN: Status post removal of external fixator and ORIF right trimalleolus fracture 1. Patient is postop day 2 today. Okay for therapy. Nonweightbearing to right lower extremity. 2. plan for discharge to long-term facility when accepted. Cleared from a medical and orthopedic standpoint at this time. Medicine has since signed off. Patient is stable and only awaiting precertification from insurance to return to previous detention. 3. Patient will follow up for post op appointment in 2 weeks with [facility] for x-rays and incision check. 4. Maintain splint at all times . cannot get wet. 5. DVT prophylaxis : Eliquis 2.5 mg twice daily 6. Pain control: Percocet every 4-6 hours as needed for pain. 7. Will discharge patient antibiotics keflex 500mg 4 times daily x10 days postop due to history of open fracture.
[2023-08-27 14:57] VITALS: BP 115/49; PULSE 74; RESP 18; TEMP 36.8; O2SAT 98
--- NOTE | 2023-08-27 15:05 | CASEMGMT ---
Social Work SW assisted pt in completing LW/POA, pt listed daughter Carli López as POA. SW gave pt originals and copies, and copies placed on the chart. BRAYDON Montalvo
[2023-08-27] MEDS: traZODone 50 MG Tablet PO (20:11)
[2023-08-27 20:26] VITALS: BP 116/58; PULSE 70; RESP 16; TEMP 36.7; O2SAT 95
[2023-08-28] VITALS (8 sets, daily range): BP systolic 110–130; BP diastolic 45–59; PULSE 64–75; RESP 16–18; TEMP 36.6–37; O2SAT 74–99
[2023-08-28] MEDS: Oxycodone/Apap 5/325 Tablet PO ×2 (01:59→19:55)
[2023-08-28] MEDS: Levothyroxine 75 MCG Tablet PO (05:14)
[2023-08-28] MEDS: Propafenone 150 MG Tablet 225 MG PO ×3 (05:15→19:59)
[2023-08-28] MEDS: Multivitamins,Therapeutic Tablet 1 TABLET PO (08:31)
[2023-08-28] MEDS: Pantoprazole Sodium 40 MG Tablet PO (08:32)
[2023-08-28] MEDS: Senna/Docusate Sodium 1 Tablet 2 TABLET PO (08:32)
[2023-08-28] MEDS: Potassium Chloride Oral Tablet 20 MEQ PO ×2 (08:32→19:58)
[2023-08-28] MEDS: Furosemide 20 MG Tablet PO (08:33)
[2023-08-28] MEDS: Meclizine 12.5 MG Tablet PO ×2 (08:33→19:56)
[2023-08-28] MEDS: Triamterene 37.5MG/Hctz 25MG Capsule 1 CAP PO (08:34)
[2023-08-28] MEDS: Gabapentin 300 MG Capsule 600 MG PO ×2 (08:41→19:55)
[2023-08-28] MEDS: APIXABAN 2.5 MG TABLET (WCH) PO ×2 (08:41→20:02)
--- NOTE | 2023-08-28 16:24 | PN.ORTHO_ITS ---
Subjective Subjective patient is POD3 s/p removal of external fixator , and subsequent ORIF right trimalleolar fracture with spittle. 08/25/2023. Patient resting comfortably in bed. Rates pain 6/ 10 at rest. With movement 6/10. States taking Percocet as needed and ice help to relieve pain. Patient has been up with therapy. Walking with the assit of a walker. Afebrile, no chest pain, shortness of breath, negative calf pain/ erythema, and no other signs of DVT patient has been cleared by medicine and orthopedics awaiting precertification for insurance for return to previous custodial Objective Data Objective Data Vital Signs: Vital Signs Temp Pulse Resp BP Pulse Ox O2 Del Method O2 Flow Rate 98.6 F 75 18 130/55 H 98 Room Air 2 08/28/23 15:59 08/28/23 15:59 08/28/23 15:59 08/28/23 15:59 08/28/23 15:59 08/28/23 15:59 08/28/23 07:25 Oxygen Flow Rate (L/min) 2 Oxygen Delivery Method Room Air Weight: 81.647 kg Body Mass Index (BMI) 34.0 Intake & Output: Intake and Output for Last 24 Hours 08/26/23 08/27/23 08/28/23 23:59 23:59 22:59 Intake Total 770 / 1120 1820 / 1820 800 / 800 Output Total 1500 / 1500 1250 / 1250 800 / 800 Balance -730 / -380 570 / 570 0 / 0 Lab / Micro Data 08/26/23 05:30 08/27/23 08:35 Physical Exam Narrative Patient resting comfortably in bed No signs of acute distress Satting well on room air Splint is intact Visible skin intact Cap refill less than 3 seconds Able to wiggle all toes Limb is warm to touch, Sensation intact throughout entire lower extremity Assessment & Plan Assessment/Plan (1) Trimalleolar fracture of right ankle: PLAN: PLAN: Status post removal of external fixator and ORIF right trimalleolar fracture 1. Patient is postop day 3 today. Okay for therapy. Nonweightbearing to right lower extremity. 2. plan for discharge to retirement facility when accepted. Cleared from a medical and orthopedic standpoint at this time. Medicine has since signed off. Patient is stable and only awaiting precertification from insurance to return to previous custodial. 3. Patient will follow up for post op appointment in 2 weeks with [facility] for x-rays and incision check. 4. Maintain splint at all times . cannot get wet. 5. DVT prophylaxis : Eliquis 2.5 mg twice daily 6. Pain control: Percocet every 4-6 hours as needed for pain. 7. Will discharge patient antibiotics keflex 500mg 4 times daily x10 days postop due to history of open fracture.
--- NOTE | 2023-08-28 16:26 | PCM.DC.SUM ---
Providers Date of Admission: 08/25/23 Primary Care Physician: XANDER Kraus Consultations 08/25/23 15:51 Consult: Hospitalist Routine Consulting Provider: Hao Fish Reason for Consult: medical management, s/p ORIF R ankle EMERGENT Consult: No MD Notified: No Date Notified: 08/25/23 Time Notified: 15:53 Diagnosis Discharge Diagnosis (1) Trimalleolar fracture of right ankle: Status: Acute Code(s): S82.851A - Displaced trimalleolar fracture of right lower leg, initial encounter for closed fracture Plan: PLAN: Status post removal of external fixator and ORIF right trimalleolar fracture 1. Patient is postop day 3 today. Okay for therapy. Nonweightbearing to right lower extremity. 2. plan for discharge to long-term facility when accepted. Cleared from a medical and orthopedic standpoint at this time. Medicine has since signed off. Patient is stable and only awaiting precertification from insurance to return to previous jail. 3. Patient will follow up for post op appointment in 2 weeks with [facility] for x-rays and incision check. 4. Maintain splint at all times . cannot get wet. 5. DVT prophylaxis : Eliquis 2.5 mg twice daily 6. Pain control: Percocet every 4-6 hours as needed for pain. 7. Will discharge patient antibiotics keflex 500mg 4 times daily x10 days postop due to history of open fracture. Medications at Discharge Home Medications cholecalciferol (vitamin D3) 125 mcg (5,000 unit) tablet (Vitamin D3) 125 mcg PO WE SUPPLEMENT 05/05/22 gabapentin 300 mg capsule 600 mg PO BID NEUROPATHY 05/05/22 levothyroxine 75 mcg tablet 75 mcg PO SUMOTUWETHFR THYROID 05/05/22 multivitamin 1 tab PO DAILY HEALTH MAINTENANCE 05/05/22 omeprazole 40 mg capsule,delayed release 40 mg PO DAILY ACID REFLUX 05/05/22 triamterene 37.5 mg-hydrochlorothiazide 25 mg capsule 1 cap PO DAILY BLOOD PRESSURE 05/05/22 furosemide 20 mg tablet (Lasix) 20 mg PO DAILY FLUID 07/18/23 meclizine 12.5 mg tablet 12.5 mg PO BID DIZZINESS #60 tabs 07/18/23 propafenone 225 mg tablet 225 mg PO TID AFIB 07/18/23 potassium chloride 20 mEq tablet,extended release(part/cryst) 20 meq PO BID SUPPLEMENT 07/19/23 trazodone 50 mg tablet 50 mg PO QHS DEPRESSION 07/19/23 vitamin A 2,500 unit-vit C 100 mg-biotin 2,500 kws-ubgo-qasevd capsule (Qzjm-Kdth-Edfk (vit A,Y-zhwcsz-Oe-Cu)) 1 cap PO DAILY SUPPLEMENT 07/19/23 nystatin 100,000 unit/gram topical cream 1 applic topical BID yeast infection 07/20/23 sennosides 8.6 mg-docusate sodium 50 mg tablet (Stool Softener-Stimulant Laxative) 2 tab PO BID #0 tabs 07/22/23 apixaban 2.5 mg tablet 2.5 mg PO BID 08/17/23 cephalexin 500 mg capsule 500 mg PO .4 times a day 10 days #40 caps 08/26/23 oxycodone-acetaminophen 5 mg-325 mg tablet 1 - 2 tab PO Q6H PRN PRN Mod-severe pain (scale 6-10) 7 days #60 tabs 08/26/23 Hospital Course Operations - (removal external fixator, and ORIF right trimalleolar fracture) Summary of Care Provided Minutes Spent on Discharge: 45 Hospital Course: Patient was admitted to the to the ED from jail for removal of external fixator and status post ORIF trimalleolar fracture right ankle. No complications with the procedure. Patient went to [facility] floor after surgery and has been stable and doing well. Patient has been cleared and awaiting precertification from insurance for discharge back to jail. precertification has been denied. peer to peer was denied. patient has elected to pay for jail through private funds. Patient has had unremarkable postoperative stay. She is on Eliquis for DVT prophylaxis nonweightbearing to right lower extremity. antibiotics x 10days after surgery. she will follow up with us in 2 weeks in office as previously scheduled. . Weight / BMI Weight Weight: 81.647 kg Body Mass Index (BMI) 34.0 ABG / Lab / Microbiology Data 08/26/23 05:30 08/27/23 08:35 D/C Instructions Discharge Diet: No restrictions Discharge Activity: Use Walker Weight Bearing Status: No weight bearing (right lower extremity) Keep extremity elevated above heart level: Operative Extremity Call your doctor if your incision/area has: Continuous Slow Oozing, Sudden Increased Bleeding, Increased Pain/ Swelling, Increased Redness, Foul Smelling Discharge and Swelling at the incision site Call your doctor if you observe: Fever of 101 or Higher, Dizziness, Chest pain and Calf discomfort Cleanse incision/area with: Do not get Incision Wet (do not get splint wet) Additional Dressing/Incision Instructions: maintain splint at all times When: follow up with [facility] in 2 weeks post op. Meaningful Use Info Meaningful Use Diagnoses (Choose all that apply): None applicable Discharge Plan Admission Admit Date/Time: 08/25/23 15:51 Attending Provider: Jacob Garcia Primary Care Provider: Rosanne Velazquez Consulting Providers: Jacob Calderon Discharge Orders/Prescriptions Prescriptions: New oxycodone-acetaminophen 5-325 mg Tablet 1 - 2 tab PO Q6H PRN PRN (Reason: Mod-severe pain (scale 6-10)) 7 Days Qty: 60 0RF cephalexin 500 mg capsule 500 mg PO .4 times a day 10 Days Qty: 40 0RF Continued furosemide [Lasix] 20 mg tablet 20 mg PO DAILY meclizine 12.5 mg tablet 12.5 mg PO BID Qty: 60 5RF multivitamin Tablet 1 tab PO DAILY omeprazole 40 mg Capsule,Delayed Release(Dr/Ec) 40 mg PO DAILY triamterene-hydrochlorothiazid 37.5-25 mg Capsule 1 cap PO DAILY levothyroxine 75 mcg Tablet 75 mcg PO SUMOTUWETHFR gabapentin 300 mg Capsule 600 mg PO BID cholecalciferol (vitamin D3) [Vitamin D3] 125 mcg (5,000 unit) Tablet 125 mcg PO WE propafenone 225 mg tablet 225 mg PO TID trazodone 50 mg tablet 50 mg PO QHS potassium chloride 20 mEq tablet,ER particles/crystals 20 meq PO BID Qgmi-Crqh-Grkf(vit A,C-biotin) 2,500 unit-100 mg-2,500 mcg capsule 1 cap PO DAILY nystatin 100,000 unit/gram cream 1 applic TOPICAL BID Patient Comments: APPLY TOPICALLY 2 TIMES A DAY NEEDED (RASH, ITCHING). APPLY 2-3 TIMES DAILY TO AFFECTED AREA(S). apixaban 2.5 mg tablet 2.5 mg PO BID Discontinued acetaminophen 500 mg Tablet 1,000 mg PO Q8 Qty: 0 0RF No Action sennosides-docusate sodium [Stool Softener-Stimulant Laxat] 8.6-50 mg Tablet 2 tab PO BID Qty: 0 0RF Referrals / Follow Up: Rosanne Velazquez, PA [Primary Care Provider] - Disposition Disposition (needs filled in before D/C Order can be placed): Retirement Facility
[2023-08-28] MEDS: Cephalexin 500 MG Capsule PO ×2 (18:27→19:56)
[2023-08-28] MEDS: traZODone 50 MG Tablet PO (19:57)
[2023-08-28 23:45] LABS: Bacteria 0 SEEN /hpf (None Seen); Mucous, Urine 0 SEEN /hpf (<or=2+); Red Blood Cells-Urine 0 SEEN /hpf (0-5); Squamous Epithelial Cells - UA 0 SEEN /hpf (5-10); White Blood Cells 0 SEEN /hpf (0-5)
[2023-08-28 23:48] LABS: Glucose, Dipstick Normal (Normal); Ketone-Dipstick Negative (Negative); Leukocyte Esterase-Dipstick Negative /ul (Negative); Nitrite-Dipstick Negative (Negative); Occult Blood-Urine Negative /ul (Negative); Protein-Dipstick Negative (Negative); Specific Gravity, Urine 1.005 (1.002-1.030); Urine Bilirubin Dipstick Negative (Negative); Urine Urobilinogen Normal (Normal)
[2023-08-28 23:53] LABS: Color, Urine Yellow (Yellow); Urine Clarity Clear (Clear)
[2023-08-29 05:00] VITALS: BP 135/55; PULSE 66; RESP 14; TEMP 36.4; O2SAT 98
[2023-08-29] MEDS: Propafenone 150 MG Tablet 225 MG PO ×3 (05:12→20:01)
[2023-08-29] MEDS: Levothyroxine 75 MCG Tablet PO (05:12)
[2023-08-29 09:18] VITALS: BP 136/53; PULSE 70; RESP 16; TEMP 36.9; O2SAT 99
[2023-08-29] MEDS: Multivitamins,Therapeutic Tablet 1 TABLET PO (09:21)
[2023-08-29] MEDS: Meclizine 12.5 MG Tablet PO ×2 (09:21→20:01)
[2023-08-29] MEDS: Potassium Chloride Oral Tablet 20 MEQ PO ×2 (09:22→20:05)
[2023-08-29] MEDS: Cephalexin 500 MG Capsule PO ×4 (09:23→20:01)
[2023-08-29] MEDS: Furosemide 20 MG Tablet PO (09:23)
[2023-08-29] MEDS: Senna/Docusate Sodium 1 Tablet 2 TABLET PO (09:24)
[2023-08-29] MEDS: Pantoprazole Sodium 40 MG Tablet PO (09:32)
[2023-08-29] MEDS: Gabapentin 300 MG Capsule 600 MG PO ×2 (09:32→20:01)
[2023-08-29] MEDS: Triamterene 37.5MG/Hctz 25MG Capsule 1 CAP PO (10:52)
[2023-08-29] MEDS: APIXABAN 2.5 MG TABLET (WCH) PO ×2 (10:52→20:01)
[2023-08-29 17:35] VITALS: BP 110/48; PULSE 80; RESP 16; TEMP 37; O2SAT 98
--- NOTE | 2023-08-29 18:48 | CASEMGMT ---
Social Work - Discharge planning update Received a voice message from Elizabeth at [facility] indicating patient's SNF request is being sent to [facility] for review, and to call , option #8 if hospital has any additional information to add about what barriers there would be for patient to receive intermittent care in a intermediate care setting; regardless the request is being sent for review. Due to lateness of receipt of message, SW to follow up on 08.30.23, to clarify [facility]'s question. -MELCHOR Mello
[2023-08-29] MEDS: traZODone 50 MG Tablet PO (20:01)
[2023-08-29] MEDS: Oxycodone/Apap 5/325 Tablet PO (20:05)
[2023-08-29 20:14] VITALS: BP 122/51; PULSE 80; RESP 16; TEMP 36.9; O2SAT 98
[2023-08-30] MEDS: Oxycodone/Apap 5/325 Tablet PO ×2 (00:03→20:01)
[2023-08-30 02:00] VITALS: BP 137/58; PULSE 66; RESP 16; TEMP 36.7; O2SAT 98
[2023-08-30] MEDS: Propafenone 150 MG Tablet 225 MG PO ×3 (05:02→22:01)
[2023-08-30] MEDS: Levothyroxine 75 MCG Tablet PO (05:02)
[2023-08-30 07:59] VITALS: BP 139/59; PULSE 64; RESP 14; TEMP 36.3; O2SAT 98
[2023-08-30] MEDS: Senna/Docusate Sodium 1 Tablet 2 TABLET PO (08:06)
[2023-08-30] MEDS: Multivitamins,Therapeutic Tablet 1 TABLET PO (08:07)
[2023-08-30] MEDS: Meclizine 12.5 MG Tablet PO ×2 (08:08→22:02)
[2023-08-30] MEDS: Miconazole Nitrate 43 GM Bottle 1 APPLIC TOPICAL ×2 (08:08→22:02)
[2023-08-30] MEDS: Potassium Chloride Oral Tablet 20 MEQ PO ×2 (08:09→22:00)
[2023-08-30] MEDS: Furosemide 20 MG Tablet PO (08:10)
[2023-08-30] MEDS: Pantoprazole Sodium 40 MG Tablet PO (08:10)
[2023-08-30] MEDS: Cephalexin 500 MG Capsule PO ×4 (08:10→22:00)
[2023-08-30] MEDS: Triamterene 37.5MG/Hctz 25MG Capsule 1 CAP PO (08:13)
[2023-08-30 08:15] VITALS: RESP 16; O2SAT 96
[2023-08-30] MEDS: Gabapentin 300 MG Capsule 600 MG PO ×2 (08:21→22:01)
[2023-08-30] MEDS: APIXABAN 2.5 MG TABLET (WCH) PO ×2 (09:51→22:01)
--- NOTE | 2023-08-30 09:57 | CASEMGMT ---
Addendum entered by Maribel Head 08/30/23 10:32: Return call from XANDER Sommers and information provided. Liss to complete the peer to peer. JOSE DANIEL Jean-Baptiste Original Note: Social Work SW placed call to [facility] and spoke with Darlyn. Pt request for SNF placement has been sent to medical review and is now requesting a Peer to Peer. Physician to call [facility] [phone] option 5 by 2pm today for Peer to Peer. Call to Alexey Bryan and MYRA left for XANDER Sommers. Call to phone of XANDER Sommers and MYRA left. JOSE DANIEL Morley
[2023-08-30 13:00] VITALS: O2SAT 94; O2SAT 97
--- NOTE | 2023-08-30 15:35 | CASEMGMT ---
Social Work SW received message from [facility] that peer to peer was completed and denied. custodial stay has been denied by insurance. SW spoke with XANDER Sommers and updated. LEONEL and Liss met with pt and discussed insurance decision and plans moving forward. SW presented options of returning home or paying privatley at a nursing facility. Pt voicing frustration and support provided. Pt is aware that she cannot return home alone at this time due to functional limitations. Pt is agreeble to pay for SNF short term and would like SW to update dgt. Phone call to pt dgt Carli and informed of insurance decision. Carli requesting pricing of private pay at [facility] prior to commiting to this option. Message sent to [facility]. LEONEL will continue to follow for d/c planning. JOSE DANIEL Morley
--- NOTE | 2023-08-30 15:39 | PCM.PN.ORT ---
Subjective Subjective patient is POD5 s/p removal of external fixator , and subsequent ORIF right trimalleolar fracture with spittle. 08/25/2023. Patient resting comfortably in bed. Rates pain 6/ 10 at rest. With movement 6/10. States taking Percocet as needed and ice help to relieve pain. Patient has been up with therapy. patient is continued 2 person moderate lift. she continues to use some O2 nasal cannula at night. this is stable since nursing facility. patient sats well room air all day. Afebrile, no chest pain, shortness of breath, negative calf pain/ erythema, and no other signs of DVT patient has been cleared by medicine and orthopedics awaiting precertification for insurance for return to previous half-way Objective Data Objective Data Vital Signs: Vital Signs Temp Pulse Resp BP Pulse Ox O2 Del Method O2 Flow Rate 97.3 F L 64 16 139/59 H 94 Room Air 2 08/30/23 07:59 08/30/23 07:59 08/30/23 08:15 08/30/23 07:59 08/30/23 13:00 08/30/23 08:15 08/30/23 02:00 Oxygen Flow Rate (L/min) 2 Oxygen Delivery Method Room Air Weight: 81.647 kg Body Mass Index (BMI) 34.0 Intake & Output: Intake and Output for Last 24 Hours 08/28/23 08/29/23 08/30/23 23:59 23:59 23:59 Intake Total Output Total 3000 / 3000 800 / 800 Balance -3000 / -3000 -800 / -800 Lab / Micro Data 08/26/23 05:30 08/27/23 08:35 Physical Exam Narrative Patient resting comfortably in bed No signs of acute distress Satting well on room air Splint is intact Visible skin intact Cap refill less than 3 seconds Able to wiggle all toes Limb is warm to touch, Sensation intact throughout entire lower extremity Assessment & Plan Assessment/Plan (1) Trimalleolar fracture of right ankle: PLAN: PLAN: Status post removal of external fixator and ORIF right trimalleolar fracture 1. Patient is postop day 5 today. Okay for therapy. Nonweightbearing to right lower extremity. 2. plan for discharge to care home facility when accepted. Cleared from a medical and orthopedic standpoint at this time. Patient has been denied. and peer to peer initiated and denied. continued work for disposition. Medicine has since signed off. Patient is stable and only awaiting precertification from insurance to return to previous half-way. 3. Patient will follow up for post op appointment in 2 weeks with [facility] for x-rays and incision check. 4. Maintain splint at all times . cannot get wet. 5. DVT prophylaxis : Eliquis 2.5 mg twice daily 6. Pain control: Percocet every 4-6 hours as needed for pain. 7. Will discharge patient antibiotics keflex 500mg 4 times daily x10 days postop due to history of open fracture.
[2023-08-30 15:49] VITALS: BP 106/56; PULSE 77; RESP 17; TEMP 36.7; O2SAT 95
[2023-08-30 19:42] VITALS: BP 116/52; PULSE 74; RESP 16; TEMP 36.8; O2SAT 95
[2023-08-30] MEDS: traZODone 50 MG Tablet PO (22:02)
[2023-08-31] MEDS: Oxycodone/Apap 5/325 Tablet PO ×2 (02:35→13:05)
[2023-08-31 02:41] VITALS: BP 113/55; PULSE 61; RESP 16; TEMP 36.6; O2SAT 96
[2023-08-31] MEDS: Propafenone 150 MG Tablet 225 MG PO ×2 (05:43→13:05)
[2023-08-31] MEDS: Levothyroxine 75 MCG Tablet PO (05:43)
[2023-08-31 06:58] VITALS: O2SAT 93
[2023-08-31 09:06] VITALS: BP 118/78; PULSE 65; RESP 16; TEMP 36.4; O2SAT 98
[2023-08-31] MEDS: Multivitamins,Therapeutic Tablet 1 TABLET PO (09:20)
[2023-08-31] MEDS: Meclizine 12.5 MG Tablet PO (09:21)
[2023-08-31] MEDS: Furosemide 20 MG Tablet PO (09:25)
[2023-08-31] MEDS: Triamterene 37.5MG/Hctz 25MG Capsule 1 CAP PO (09:25)
[2023-08-31] MEDS: APIXABAN 2.5 MG TABLET (WCH) PO (09:25)
[2023-08-31] MEDS: Potassium Chloride Oral Tablet 20 MEQ PO (09:25)
[2023-08-31] MEDS: Cholecalciferol (Vit D3) 125 MCG CAPSULE (5,000 UNITS) PO (09:26)
[2023-08-31] MEDS: Pantoprazole Sodium 40 MG Tablet PO (09:26)
[2023-08-31] MEDS: Cephalexin 500 MG Capsule PO ×2 (09:27→12:59)
[2023-08-31] MEDS: Miconazole Nitrate 43 GM Bottle 1 APPLIC TOPICAL (09:27)
[2023-08-31] MEDS: Gabapentin 300 MG Capsule 600 MG PO (09:31)
--- NOTE | 2023-08-31 10:57 | CASEMGMT ---
Social Work [facility] is able to accept pt private pay. Phone call to pt's dgt Carli and updated. Carli is agreeable that pt return to [facility] private pay. SW met with pt and discussed discharge plan as noted above. Pt is agreeable. VM left with XANDER Sommers notifying that pt can discharge today. Plan: [facility], supervisor intermediates care JOSE DANIEL Morley
--- NOTE | 2023-08-31 12:31 | CASEMGMT ---
Discharge Planning Discharge orders, signed med list, and transport time sent to [facility] via [facility]. [facility] will transport patient by cot at 1:30p. Nursing and SW updated. Marie Hayes, Discharge Plannning Asst.
--- NOTE | 2023-08-31 12:55 | CASEMGMT ---
Social Work SW left VM with pt's dgt Carli regarding flower buncher or picker at 1:30 to transport to [facility]. SW met with pt and updated on discharge time. Disposition: [facility], roasterman care JOSE DANIEL Morley
[2023-08-31 12:56] VITALS: BP 120/66; PULSE 76; RESP 16; TEMP 36.6; O2SAT 96
== END 2023-08-31 13:50 ==
LOC: SDC 16:27 → MS3 16:27
PROVIDERS: Family Medicine; Admitting Provider Student in an Organized Health Care Education/Training Program; PCP Physician Assistant Medical; Referring Provider Student in an Organized Health Care Education/Training Program; Visit Provider Student in an Organized Health Care Education/Training Program
PROC: (CPT 27823; principal; 2023-08-25 13:20)
DX: S82.851C Displaced trimalleolar fracture of right lower leg, initial encounter for open fracture type IIIA, IIIB, or IIIC (principal); I48.0 Paroxysmal atrial fibrillation; Z79.01 Long term (current) use of anticoagulants; K21.9 Gastro-esophageal reflux disease without esophagitis; I10 Essential (primary) hypertension; Z79.899 Other long term (current) drug therapy; E07.9 Disorder of thyroid, unspecified; Z95.0 Presence of cardiac pacemaker; E66.8 Other obesity; Z68.37 Body mass index [BMI] 37.0-37.9, adult; Z79.890 Hormone replacement therapy; X58.XXXA Exposure to other specified factors, initial encounter
CPT/HCPCS: 27823; 20694; 01480; 64445; 36415; 73600; 76000; 80048; 81001; 85025; 94668; 96365; 96366; 97110; 97116; 97162; 97166; 97530; 97535; 99221; 99252; C1713; J7120; G0378; G0463; J2405

== ENCOUNTER → 2023-09-01 | Outpatient (REF) | payer MEDICARE, SELFPAY ==
[2023-09-01 08:11] LABS: Hematocrit 36.1 % (37-47); Hemoglobin 11.9 g/dL (12.0-15.0); Mean Corpuscular Hgb 29.6 pg (27.0-32.0); Mean Corpuscular Volume 89.8 fL (81-99); Mean Platelet Vol. 10.6 fl (6.2-12.0); Platelet Count 285 K/mm3 (150-450); RBC Distribution Width CV 12.3 % (11.6-14.6); RBC Distribution Width SD 40.7 fl (35.1-43.9); Red Blood Count 4.02 M/mm3 (4.2-5.4)
[2023-09-01 08:27] LABS: Anion Gap 7 (5-15); BUN 15 mg/dL (7-18); BUN/Creat Ratio 23.1 RATIO (10-20); Calcium,Total 9.1 mg/dL (8.5-10.1); Chloride 93 mmol/L (98-107); Creatinine, Serum 0.65 mg/dL (0.55-1.02); EST Glomerular Filtration Rate 92 mL/min (>60); Est Glom Filt Rate - Afr Amer 112 mL/min (>60); Glucose 116 mg/dL (74-106); Potassium 3.2 mmol/L (3.5-5.1); Sodium Level 133 mmol/L (136-145)
== END ==
LOC: OLS.SW 05:00
PROVIDERS: PCP Physician Assistant Medical; Visit Provider Family Medicine
DX: I48.91 Unspecified atrial fibrillation (principal); I10 Essential (primary) hypertension; E03.9 Hypothyroidism, unspecified; E27.8 Other specified disorders of adrenal gland; Z85.3 Personal history of malignant neoplasm of breast
CPT/HCPCS: 36415; 80048; 85027

== ENCOUNTER → 2023-09-05 | Outpatient (REF) | payer MEDICARE, SELFPAY ==
[2023-09-05 08:46] LABS: Hematocrit 36.7 % (37-47); Mean Corp Hgb Conc 32.7 g/dL (32-36); Mean Corpuscular Hgb 29.9 pg (27.0-32.0); Mean Corpuscular Volume 91.3 fL (81-99); Mean Platelet Vol. 11.1 fl (6.2-12.0); Platelet Count 314 K/mm3 (150-450); RBC Distribution Width CV 12.4 % (11.6-14.6); RBC Distribution Width SD 41.4 fl (35.1-43.9); Red Blood Count 4.02 M/mm3 (4.2-5.4); White Blood Count 3.5 K/mm3 (4.4-11.0)
[2023-09-05 09:03] LABS: ALB/GLOB Ratio 0.9 RATIO (0.9-2.4); AST(SGOT) 20 U/L (15-37); Alanine Aminotransfer ALT/SGPT 18 U/L (13-56); Albumin, Serum 2.9 g/dL (3.2-5.0); Alkaline Phosphatase 63 U/L (45-117); Anion Gap 8 (5-15); BUN 12 mg/dL (7-18); BUN/Creat Ratio 19.3 RATIO (10-20); Calcium,Total 9.1 mg/dL (8.5-10.1); Chloride 96 mmol/L (98-107); Creatinine, Serum 0.62 mg/dL (0.55-1.02); EST Glomerular Filtration Rate 97 mL/min (>60); Est Glom Filt Rate - Afr Amer 118 mL/min (>60); Globulin 3.2 g/dL (2.2-4.2); Glucose 93 mg/dL (74-106); Potassium 3.7 mmol/L (3.5-5.1); Protein, Total 6.1 g/dL (6.4-8.2); Sodium Level 134 mmol/L (136-145); T4 Free Direct 1.38 ng/dL (0.76-1.46); Thyroid Stim Hormone (TSH) 1.75 uIU/mL (0.358-3.74)
== END ==
LOC: OLS.SW 05:00
PROVIDERS: PCP Physician Assistant Medical; Visit Provider Family Medicine
DX: I10 Essential (primary) hypertension (principal); Z85.3 Personal history of malignant neoplasm of breast
CPT/HCPCS: 36415; 80053; 84439; 84443; 85027

== ENCOUNTER → 2023-09-12 | Outpatient (REF) | payer MEDICARE, SELFPAY ==
[2023-09-12 08:55] LABS: Hematocrit 37.9 % (37-47); Hemoglobin 12.1 g/dL (12.0-15.0); Mean Corp Hgb Conc 31.9 g/dL (32-36); Mean Corpuscular Hgb 28.7 pg (27.0-32.0); Mean Corpuscular Volume 89.8 fL (81-99); Mean Platelet Vol. 11.3 fl (6.2-12.0); Platelet Count 256 K/mm3 (150-450); RBC Distribution Width CV 12.5 % (11.6-14.6); Red Blood Count 4.22 M/mm3 (4.2-5.4); White Blood Count 3.4 K/mm3 (4.4-11.0)
[2023-09-12 09:18] LABS: AST(SGOT) 21 U/L (15-37); Alanine Aminotransfer ALT/SGPT 18 U/L (13-56); Albumin, Serum 2.9 g/dL (3.2-5.0); Alkaline Phosphatase 66 U/L (45-117); Anion Gap 8 (5-15); BUN 14 mg/dL (7-18); BUN/Creat Ratio 19.3 RATIO (10-20); Calcium,Total 9.1 mg/dL (8.5-10.1); Chloride 98 mmol/L (98-107); Creatinine, Serum 0.73 mg/dL (0.55-1.02); EST Glomerular Filtration Rate 81 mL/min (>60); Est Glom Filt Rate - Afr Amer 98 mL/min (>60); Globulin 2.9 g/dL (2.2-4.2); Glucose 94 mg/dL (74-106); Potassium 3.2 mmol/L (3.5-5.1); Protein, Total 5.8 g/dL (6.4-8.2); Sodium Level 137 mmol/L (136-145)
== END ==
LOC: OLS.SW 05:00
PROVIDERS: PCP Physician Assistant Medical; Visit Provider Family Medicine
DX: I48.91 Unspecified atrial fibrillation (principal); I10 Essential (primary) hypertension; E03.9 Hypothyroidism, unspecified; S82.851B Displaced trimalleolar fracture of right lower leg, initial encounter for open fracture type I or II
CPT/HCPCS: 36415; 80053; 85027

== ENCOUNTER → 2023-09-19 | Outpatient (REF) | payer MEDICARE, SELFPAY ==
[2023-09-19 08:29] LABS: Hematocrit 37.9 % (37-47); Hemoglobin 12.2 g/dL (12.0-15.0); Mean Corp Hgb Conc 32.2 g/dL (32-36); Mean Corpuscular Hgb 28.9 pg (27.0-32.0); Mean Corpuscular Volume 89.8 fL (81-99); Mean Platelet Vol. 12.3 fl (6.2-12.0); Platelet Count 185 K/mm3 (150-450); RBC Distribution Width CV 12.4 % (11.6-14.6); RBC Distribution Width SD 40.4 fl (35.1-43.9); Red Blood Count 4.22 M/mm3 (4.2-5.4); White Blood Count 3.1 K/mm3 (4.4-11.0)
[2023-09-19 09:05] LABS: ALB/GLOB Ratio 1.1 RATIO (0.9-2.4); AST(SGOT) 21 U/L (15-37); Alanine Aminotransfer ALT/SGPT 16 U/L (13-56); Alkaline Phosphatase 61 U/L (45-117); Anion Gap 8 (5-15); BUN 16 mg/dL (7-18); BUN/Creat Ratio 21.4 RATIO (10-20); Calcium,Total 9.1 mg/dL (8.5-10.1); Chloride 97 mmol/L (98-107); Creatinine, Serum 0.75 mg/dL (0.55-1.02); EST Glomerular Filtration Rate 79 mL/min (>60); Est Glom Filt Rate - Afr Amer 95 mL/min (>60); Globulin 2.8 g/dL (2.2-4.2); Glucose 91 mg/dL (74-106); Potassium 3.2 mmol/L (3.5-5.1); Protein, Total 5.8 g/dL (6.4-8.2); Sodium Level 134 mmol/L (136-145)
== END ==
LOC: OLS.SW 05:00
PROVIDERS: PCP Physician Assistant Medical; Visit Provider Family Medicine
DX: I10 Essential (primary) hypertension (principal); E03.9 Hypothyroidism, unspecified
CPT/HCPCS: 36415; 80053; 85027

== ENCOUNTER → 2023-10-05 | Outpatient (CLI) | payer MEDICARE, SELFPAY ==
--- NOTE | 2023-10-05 11:14 | MRI_ITS ---
STUDY: MRI BRAIN WITH AND WITHOUT CONTRAST REASON FOR EXAM: Female, 83 years old. Gait D/O; mild cognitive impairment; peripheral ve TECHNIQUE: Standardized multiplanar fat and water weighted pulse sequences were obtained. 17cc clariscan was administered for the contrast portion of the examination. COMPARISON: None. FINDINGS: There is moderate cerebral atrophy with widening of the extra-axial spaces and ventricular dilatation. There are multiple white matter hyperintensities, distributed throughout the deep white matter tracts of the cerebral hemispheres, consistent with moderate chronic white matter ischemic changes. There is no evidence for recent intracranial ischemia or other cause of cytotoxic edema on diffusion weighted imaging (DWI). Normal T2* images of the brain without demonstrated susceptibility artifact. There is no demonstrated hemosiderin stain. Thin section coronal T2-weighted images through the temporal lobes demonstrate bilateral hippocampal atrophy which can be seen in cognitive decline from Alzheimer''s disease. Normal bilateral basal ganglia. Normal thalami. There is no extra-axial fluid accumulation. Normal flow voids within the major intracranial circulation suggesting patency by spin echo criteria. Normal venous enhancement. There is no enhancing intra-axial or extra-axial abnormality. Normal sella turcica, pituitary gland, infundibular stalk, optic chiasm and hypothalamus. Normal tectal plate and pineal gland. Normal midbrain, julio and medulla. Normal cerebellum. Normal basal cisterns. Normal bilateral temporal bones. Normal bilateral internal auditory canals. There are bilateral ocular lens implants with otherwise normal intraorbital contents. Normal visualized paranasal sinuses. Normal calvarium and skull base. Normal visualized soft tissue structures. Normal visualized upper cervical spine. MRI/Brain W/WO Contrast IMPRESSION: 1. Involutional changes of the brain, as described above. 2. No acute infarct. 3. Bilateral hippocampal atrophy which can be seen in cognitive decline from Alzheimer''s disease. Electronically Signed: Luis Ramirez MD at 21:44 EST ,
== END | disposition home or self-care (01) ==
LOC: MRI 11:09
PROVIDERS: PCP Physician Assistant Medical; Referring Provider Psychiatry & Neurology Neurology; Visit Provider Psychiatry & Neurology Neurology
DX: R26.9 Unspecified abnormalities of gait and mobility (principal); G31.84 Mild cognitive impairment of uncertain or unknown etiology; H81.90 Unspecified disorder of vestibular function, unspecified ear
CPT/HCPCS: 70553; A9575

== ENCOUNTER → 2023-10-10 | Outpatient (REF) | payer MEDICARE, SELFPAY ==
[2023-10-11 09:18] LABS: Bacteria 0 SEEN /hpf (None Seen); Mucous, Urine 0 SEEN /hpf (<or=2+); Red Blood Cells-Urine 0 SEEN /hpf (0-5); Squamous Epithelial Cells - UA 0 SEEN /hpf (5-10)
[2023-10-11 09:27] LABS: Color, Urine Yellow (Yellow); Glucose, Dipstick Normal (Normal); Ketone-Dipstick Negative (Negative); Leukocyte Esterase-Dipstick 25 /ul (Negative); Nitrite-Dipstick Negative (Negative); Occult Blood-Urine Negative /ul (Negative); Protein-Dipstick Negative (Negative); Specific Gravity, Urine 1.015 (1.002-1.030); Urine Bilirubin Dipstick Negative (Negative); Urine Clarity Sl. Cloudy (Clear); Urine Urobilinogen Normal (Normal)
[2023-10-11 09:34] LABS: Amorphous Sediment 1+; Hyaline Cast 0-5 SEEN /lpf (0-5); White Blood Cells 0-5 SEEN /hpf (0-5)
== END ==
LOC: OLS.SW 09:18
PROVIDERS: PCP Physician Assistant Medical; Visit Provider Family Medicine
DX: Z79.899 Other long term (current) drug therapy (principal); I10 Essential (primary) hypertension; E03.9 Hypothyroidism, unspecified
CPT/HCPCS: 81001; 87086; 87088

== ENCOUNTER → 2023-11-22 | Outpatient (CLI) | payer MEDICARE, SELFPAY ==
[2023-11-22 15:07] LABS: Absolute Lymphocyte Count 0.86 X10^3/uL (0.83-4.51); Absolute Neutrophil Count 1.4 X10^3/uL (2.0-7.7); Basophil# 0.04 X10^3/uL; Basophil% 1.5 % (0-1); Eosinophil# 0.04 X10^3/uL; Eosinophils% 1.5 % (0-5); Hematocrit 38.2 % (37-47); Hemoglobin 12.2 g/dL (12.0-15.0); Lymphocyte # 0.86 X10^3/ul (0.83-4.51); Lymphocyte % 32.7 % (19-41); Mean Corp Hgb Conc 31.9 g/dL (32-36); Mean Corpuscular Hgb 28.3 pg (27.0-32.0); Mean Corpuscular Volume 88.6 fL (81-99); Mean Platelet Vol. 10.9 fl (6.2-12.0); Monocyte# 0.33 X10^3/uL; Monocyte% 12.5 % (0-10); NRBC Flagged by Analyzer 0 % (0-5); Neutrophil # 1.36 X10^3/uL (2.7-7.7); Neutrophil % 51.8 % (47-70); Platelet Count 253 K/mm3 (150-450); RBC Distribution Width SD 42.4 fl (35.1-43.9); Red Blood Count 4.31 M/mm3 (4.2-5.4); White Blood Count 2.6 K/mm3 (4.4-11.0)
[2023-11-22 15:59] LABS: Vitamin B12 419 pg/mL (211-911)
[2023-11-22 16:47] LABS: AST(SGOT) 19 U/L (15-37); Alanine Aminotransfer ALT/SGPT 18 U/L (13-56); Albumin, Serum 3.2 g/dL (3.2-5.0); Alkaline Phosphatase 110 U/L (45-117); Anion Gap 3 (5-15); BUN 10 mg/dL (7-18); BUN/Creat Ratio 12.2 RATIO (10-20); Calcium,Total 9.1 mg/dL (8.5-10.1); Chloride 102 mmol/L (98-107); Creatinine, Serum 0.82 mg/dL (0.55-1.02); EST Glomerular Filtration Rate 70 mL/min (>60); Est Glom Filt Rate - Afr Amer 85 mL/min (>60); Globulin 3.2 g/dL (2.2-4.2); Glucose 104 mg/dL (74-106); Potassium 3.7 mmol/L (3.5-5.1); Protein, Total 6.4 g/dL (6.4-8.2); Sodium Level 136 mmol/L (136-145)
[2023-11-27 18:07] LABS: Vitamin B1, Thiamine 130.6 nmol/L (66.5-200.0)
== END | disposition home or self-care (01) ==
LOC: MTLAB 13:41
PROVIDERS: PCP Physician Assistant Medical; Referring Provider Psychiatry & Neurology Neurology; Visit Provider Psychiatry & Neurology Neurology
DX: I48.0 Paroxysmal atrial fibrillation (principal); F03.90 Unspecified dementia, unspecified severity, without behavioral disturbance, psychotic disturbance, mood disturbance, and anxiety
CPT/HCPCS: 36415; 80053; 82607; 82746; 84425; 85025

== ENCOUNTER → 2024-01-24 | Outpatient (CLI) | payer MEDICARE, SELFPAY ==
[2024-01-24 15:08] LABS: International Normalized Ratio 1.1; Prothrombin Time (Protime)PT. 14.6 SECONDS (11.7-14.9)
== END | disposition home or self-care (01) ==
LOC: LAB 14:10
PROVIDERS: PCP Physician Assistant Medical; Referring Provider Anesthesiology Pain Medicine; Visit Provider Anesthesiology Pain Medicine
DX: M54.16 Radiculopathy, lumbar region (principal)
CPT/HCPCS: 36415; 85610

== ENCOUNTER → 2024-04-17 | Outpatient (CLI) | payer MEDICARE, SELFPAY ==
[2024-04-17 19:18] LABS: Amphetamine Urine VISTA NEGATIVE (<1000 ng/mL); Barbiturate Urine VISTA NEGATIVE (< 200 ng/mL); Benzodiazepine Urine VISTA POSITIVE (< 200 ng/mL); Cocaine Urine VISTA NEGATIVE (< 300 ng/mL); Ecstacy Urine VISTA NEGATIVE (< 500 ng/mL); Methadone Urine VISTA NEGATIVE (< 300 ng/mL); PCP Urine VISTA NEGATIVE (< 25 ng/mL); THC Urine VISTA NEGATIVE (< 50 ng/mL); Vista UDS pH Range 5
== END | disposition home or self-care (01) ==
PROVIDERS: PCP Physician Assistant Medical; Referring Provider Anesthesiology Pain Medicine; Visit Provider Anesthesiology Pain Medicine
DX: F11.20 Opioid dependence, uncomplicated (principal)
CPT/HCPCS: 80307

== ENCOUNTER 2025-01-03 15:43 | Outpatient (CLI) | payer MEDICARE, SELFPAY ==
[2025-01-03 16:44] LABS: Amphetamine Urine NEGATIVE (<1000 ng/mL); Barbiturate Urine NEGATIVE (< 200 ng/mL); Benzodiazepine Urine NEGATIVE (< 200 ng/mL); Buprenorphine Urine NEGATIVE (< 200 ng/mL); Cocaine Urine NEGATIVE (< 300 ng/mL); Fentanyl, Urine NEGATIVE; Methadone Urine NEGATIVE (< 300 ng/mL); Opiates Urine NEGATIVE (< 300 ng/mL); Oxycodone, Urine PRESUMTIVE POSITIVE (< 100 ng/mL); PCP Urine NEGATIVE (< 25 ng/mL); THC Urine NEGATIVE (< 50 ng/mL)
== END 2025-01-03 23:59 | disposition home or self-care (01) ==
LOC: LAB 15:46
PROVIDERS: PCP Physician Assistant Medical; Referring Provider Anesthesiology Pain Medicine; Visit Provider Anesthesiology Pain Medicine
DX: F11.20 Opioid dependence, uncomplicated (principal)
CPT/HCPCS: 80307

== ENCOUNTER → 2025-02-04 | Outpatient (CLI) | payer MEDICARE, SELFPAY ==
[2025-02-04 18:25] LABS: Amphetamine Urine NEGATIVE (<1000 ng/mL); Barbiturate Urine NEGATIVE (< 200 ng/mL); Benzodiazepine Urine NEGATIVE (< 200 ng/mL); Buprenorphine Urine NEGATIVE (< 200 ng/mL); Cocaine Urine NEGATIVE (< 300 ng/mL); Fentanyl, Urine NEGATIVE; Methadone Urine NEGATIVE (< 300 ng/mL); Opiates Urine NEGATIVE (< 300 ng/mL); Oxycodone, Urine PRESUMPTIVE POSITIVE (< 100 ng/mL); PCP Urine NEGATIVE (< 25 ng/mL); THC Urine NEGATIVE (< 50 ng/mL)
== END | disposition home or self-care (01) ==
LOC: LAB 14:55
PROVIDERS: PCP Physician Assistant Medical; Referring Provider Anesthesiology Pain Medicine; Visit Provider Anesthesiology Pain Medicine
DX: F11.20 Opioid dependence, uncomplicated (principal)
CPT/HCPCS: 80307

== ENCOUNTER → 2025-06-12 | Outpatient (CLI) | payer MEDICARE, SELFPAY ==
--- NOTE | 2025-06-12 15:42 | RAD_ITS ---
PROCEDURE: LUMBAR SPINE 2 OR 3 VIEWS 06/12/2025 REASON FOR EXAM: DDD TECHNIQUE: LUMBAR SPINE 2 OR 3 VIEWS COMPARISON: None. FINDINGS: BONES: Five [id number] lumbar vertebral bodies. Compression deformity of the L1 vertebral body. Compression deformities status post vertebroplasty at T11, T12 and L2. Anatomic spinal alignment. Generalized osteopenia. DISC/DEGENERATIVE CHANGES: Disc space narrowing at several levels. Small vertebral endplate osteophytes at a few levels. L4-L5 and L5-S1 facet arthropathy. Pubic symphysis and bilateral sacroiliac joint sclerosis. SOFT TISSUES: Calcified aorta and iliac arteries. RAD/Lumbar Spine 2 or 3 Views IMPRESSION: 1. L1 vertebral body compression deformity, age indeterminate. If clinical co ncern for acute fracture, a CT or MRI is recommended to evaluate further. 2. Spondylosis and degenerative disc disease. Reading Location: [id number]
--- NOTE | 2025-06-12 15:42 | RAD_ITS ---
EXAM: XR Thoracic Spine, 2 Views CLINICAL INDICATION: DDD TECHNIQUE: Frontal and lateral views of the thoracic spine. COMPARISON: No relevant prior studies available. FINDINGS: VERTEBRAE: Vertebroplasty of T9, T10, T11, L2 and T12. Degenerative disc disease and facet arthropathy throughout the thoracic spine. Normal alignment. No acute fracture. DISC SPACES: See above. SOFT TISSUES: Unremarkable. RAD/Thoracic Spine 2 Views IMPRESSION: 1. No acute fracture. 2. Degenerative changes thoracic spine as described. 3. If symptoms persist, further evaluation with MRI is recommended. Reading Location: [facility]
--- NOTE | 2025-06-12 15:50 | RAD_ITS ---
PROCEDURE: SACRUM-COCCYX MIN 2 VIEWS 06/12/2025 REASON FOR EXAM: DDD TECHNIQUE: SACRUM-COCCYX MIN 2 VIEWS COMPARISON: None. FINDINGS: BONES: No fracture or focal osseous lesion. Degenerative changes in the imaged lumbar spine. Generalized osteopenia. JOINTS: No dislocation. Mild hip joint space narrowing bilaterally. Sclerosis of the symphysis pubis and bilateral sacroiliac joints. SOFT TISSUES: No acute abnormality seen. RAD/Sacrum-Coccyx min 2 Views IMPRESSION: No acute osseous abnormality. Reading Location: [id number]
== END | disposition home or self-care (01) ==
LOC: RAD 15:38
PROVIDERS: PCP Physician Assistant Medical; Referring Provider Anesthesiology Pain Medicine; Visit Provider Anesthesiology Pain Medicine
DX: M51.369 Other intervertebral disc degeneration, lumbar region without mention of lumbar back pain or lower extremity pain (principal)
CPT/HCPCS: 72070; 72100; 72220

== ENCOUNTER → 2025-08-21 | Outpatient (CLI) | payer MEDICARE, SELFPAY ==
--- NOTE | 2025-08-21 12:28 | MRI_ITS ---
PROCEDURE: SPINE LUMBAR W/WO CONTRAST 08/21/2025 REASON FOR EXAM: RADICULOPATHY OF LUMBAR REGION TECHNIQUE: Procedure Code: [id number] Modality: MR Procedure: SPINE LUMBAR W/WO CONTRAST Multiplanar and multisequence images were obtained without and with intravenous gadolinium-based contrast administration. CONTRAST: Clariscan VOLUME: 17 mL COMPARISON: Lumbar spine x-ray June 12, 2025. FINDINGS: Vertebrae: Status post kyphoplasty/vertebroplasty at T11, T12 and L1. Alignment: Well aligned. Conus Medullaris: Unremarkable. T12-L1: Disc bulge. Facet arthropathy. Mild bilateral foramina stenosis. Mild canal stenosis. L1-2: Disc bulge. A 3 cm central disc protrusion. A 5 mm left extraforaminal disc herniation. Facet joint arthropathy. Moderate bilateral foramina stenosis. Mild canal stenosis. L2-3: Disc bulge. Facet joint arthropathy. Mild bilateral foramina stenosis. No canal stenosis. L3-4: Facet joint arthropathy with ligamentum flavum hypertrophy. No foraminal or canal stenosis. L4-5: Disc bulge. Facet joint arthropathy. Ligamentum flavum hypertrophy. No significant foraminal or canal stenosis. L5-S1: Disc bulge. Facet joint arthropathy. No significant foraminal or canal stenosis. Sacrum: Unremarkable. Postcontrast images: No abnormal enhancement. MRI/Spine Lumbar W/WO Contrast IMPRESSION: Degenerate changes predominantly at L1-L2 where there is a 3 cm central disc he rniation and 5 mm left extraforaminal disc herniation, moderate bilateral foramina stenosis and mild canal stenosis. Reading Location: [facility]
== END | disposition home or self-care (01) ==
LOC: OPMRI 12:24
PROVIDERS: PCP Physician Assistant Medical; Referring Provider Anesthesiology Pain Medicine; Visit Provider Anesthesiology Pain Medicine
DX: M54.16 Radiculopathy, lumbar region (principal)
CPT/HCPCS: 72158; A9575